=== PATIENT | female | born 1955 | race Hispanic/Latino ===

== ENCOUNTER 2017-03-26 05:28 | Inpatient (IN) | payer BC ==
--- NOTE | 2017-03-26 06:15 | ED PDOC ---
Arrival/HPI - General Chief Complaint: Abdominal Pain Time Seen by Provider: 03/26/17 06:14 Historian: Patient - History of Present Illness Narrative History of Present Illness (Text): 03/26/17 06:14 A 61 year old female, whose past medical history includes hypertension, COPD, ulcerative colitis, and potassium deficiency presents to the emergency department complaining of left lower quadrant pain that began yesterday associated with rashes on the left arm and leg and swelling to the right face. Patient states to have urinary incontinence, dyusria, vaginal discharge, fever, dehydration, nausea, loss of appetite, but denies vaginal bleeding, vomiting, hematuria, chest pain, shortness of breath, vomiting, diarrhea, back pain, neck pain, headache, dizziness, or any other complaints. PMD: Dr. Lira Time/Duration: Other (yesterday) Symptom Onset: Gradual Symptom Course: Unchanged Quality: Stabbing Activities at Onset: Light Context: Home Past Medical History - Provider Review Nursing Documentation Reviewed: Yes - Infectious Disease Hx of Infectious Diseases: None - Cardiac Hx Cardiac Disorders: Yes Hx Hypertension: Yes - Pulmonary Hx Respiratory Disorders: Yes (SMOKED 3 PPD QUIT USING CHANTIX.) Hx Chronic Obstructive Pulmonary Disease (COPD): Yes - Neurological Hx Neurological Disorder: No - HEENT Hx HEENT Disorder: No - Renal Hx Renal Disorder: No - Endocrine/Metabolic Hx Endocrine Disorders: No - Hematological/Oncological Hx Blood Transfusions: Yes Hx Blood Transfusion Reaction: No - Integumentary Hx Dermatological Disorder: No - Musculoskeletal/Rheumatological Hx Musculoskeletal Disorders: Yes (TORN ROTATOR CUF) Hx Falls: No - Gastrointestinal Hx Gastrointestinal Disorders: Yes (COLITIS 10-5-16) - Genitourinary/Gynecological Hx Genitourinary Disorders: Yes (CYST REMOVED IN BETWEEN BREAST.TUBAL LIGATION) - Psychiatric Hx Psychophysiologic Disorder: Yes (SMOKED 3 PPD.QUIT) Hx Anxiety: No Hx Bipolar Disorder: No Hx Depression: No Hx Emotional Abuse: No Hx Hallucinations: No Hx Panic Disorder: No Hx Post Traumatic Stress Disorder: No Hx Psychosis: No Hx Physical Abuse: No Hx Schizophrenia: No Hx Sexual Abuse: No Hx Substance Use: No - Anesthesia Hx Anesthesia Reactions: No Hx Malignant Hyperthermia: No - Suicidal Assessment Feels Threatened In Home Enviroment: No Family/Social History - Physician Review Nursing Documentation Reviewed: Yes Family/Social History: No Known Family HX Smoking Status: Former Smoker Hx Alcohol Use: No Hx Substance Use: No Allergies/Home Meds Allergies/Adverse Reactions: Allergies No Known Allergies Allergy (Verified 04/22/16 12:07) Home Medications: Home Meds Medication Instructions Recorded Confirmed amLODIPine [Norvasc] 5 mg PO DAILY 04/06/16 03/26/17 Review of Systems - Physician Review All systems were reviewed & negative as marked: Yes - Review of Systems Constitutional: Fevers, Other (swelling on the right side of face) Respiratory: absent: SOB Cardiovascular: absent: Chest Pain Gastrointestinal: Abdominal Pain (LLQ abdominal pain), Nausea, Appetite Changes (loss of appetite/ dehydrated), Hematochezia (have not increased since Uleractive coliltis). absent: Diarrhea, Vomiting Genitourinary Female: Dysuria, Vaginal Discharge, Other (Urinary incontinance ) . absent: Hematuria, Vaginal Bleeding Musculoskeletal: absent: Back Pain, Neck Pain Skin: Rash (left arm and left leg) Neurological: absent: Headache, Dizziness Physical Exam Vital Signs Reviewed: Yes Vital Signs Temp Pulse Resp BP Pulse Ox 03/26/17 05:32 101.3 F H 105 H 18 121/65 93 L Temperature: Febrile Blood Pressure: Normal Pulse: Tachycardic Respiratory Rate: Normal Appearance: Positive for: Well-Appearing, Non-Toxic, Comfortable Pain Distress: None Mental Status: Positive for: Alert and Oriented X 3 - Systems Exam Head: Present: Atraumatic, Normocephalic, Swelling (mild swelling on right side of the face) Pupils: Present: PERRL Extroacular Muscles: Present: EOMI Conjunctiva: Present: Normal Mouth: Present: Moist Mucous Membranes Neck: Present: Normal Range of Motion Respiratory/Chest: Present: Clear to Auscultation, Good Air Exchange. No: Respiratory Distress, Accessory Muscle Use Cardiovascular: Present: Regular Rate and Rhythm, Normal S1, S2. No: Murmurs Abdomen: Present: Tenderness (LLQ tenderness), Distention (slight distented), Normal Bowel Sounds. No: Peritoneal Signs Back: Present: Normal Inspection Upper Extremity: Present: Normal Inspection. No: Cyanosis, Edema Lower Extremity: Present: Normal Inspection. No: Edema Neurological: Present: GCS=15, CN II-XII Intact, Speech Normal Skin: Present: Warm, Dry, Rashes, Normal Color (mild maculopapular rash on left arm and left leg.) Psychiatric: Present: Alert, Oriented x 3, Normal Insight, Normal Concentration Medical Decision Making ED Course and Treatment: 03/26/17 06:14 Impression: 61 year old female presents complaining of left lower quadrant tenderness associated with rash on the left arm and leg that began yesterday. Plan: -- ABD and Pelvis IV Contrast CT -- Labs -- IV Fluids -- Blood culture -- Urine Culture -- Urinalysis -- Reassess and disposition Progress Notes: - Lab Interpretations Lab Results: 03/26/17 06:40 Lab Results 03/26/17 06:40: Sodium 139, Potassium 3.8, Chloride 101, Carbon Dioxide 26, Anion Gap 16, BUN 11, Creatinine 0.8, Est GFR ( Amer) > 60, Est GFR (Non- Af Amer) > 60, Random Glucose 159 H, Calcium 9.1, Total Bilirubin 1.6 H, AST 29 , ALT 38, Alkaline Phosphatase 92, Total Protein 7.4, Albumin 4.2, Globulin 3.2 , Albumin/Globulin Ratio 1.3, Lipase 85 I have reviewed the lab results: Yes - RAD Interpretation Radiology Orders: 03/26/17 07:04 ABD & PELVIS PO CONTRAST ONLY [CT] Stat - Medication Orders Current Medication Orders: Sodium Chloride (Sodium Chloride 0.9%) 1,000 mls @ 1,000 mls/hr IV .Q1H STA Stop: 03/26/17 07:22 Last Admin: 03/26/17 06:56 Dose: 1,000 mls/hr eMAR Start Stop Document 03/26/17 06:56 MARCIAL (Rec: 03/26/17 06:56 [id number]) Intravenous Solution Start Date 03/26/17 Start Time 06:56 End Date 03/26/17 End time 07:56 Total Infusion Time 60 Discontinued Medications Acetaminophen (Tylenol 325mg Tab) 650 mg PO STAT STA Stop: 03/26/17 06:38 Last Admin: 03/26/17 06:56 Dose: 650 mg MAR Pain/Vitals Document 03/26/17 06:56 MARCIAL (Rec: 03/26/17 06:56 [id number]) Pain Reassessment Is This A Pain ReAssessment? No Sleep Is patient sleeping during reassessment? No Presence of Pain Presence of Pain No Iohexol (Omnipaque 240 (50 Ml)) Confirm Administered Dose 50 ml .ROUTE .STK-MED ONE Stop: 03/26/17 06:43 Ondansetron HCl (Zofran Inj) 4 mg IVP STAT STA Stop: 03/26/17 06:24 Last Admin: 03/26/17 06:51 Dose: 4 mg IVP Administration Document 03/26/17 06:51 MARCIAL (Rec: 03/26/17 06:51 MARCIAL [facility] [place] [id number]) Charges for Administration # of IVP Administrations 1 - Scribe Statement The provider has reviewed the documentation as recorded by the Scribe Doris Rajan All medical record entries made by the Scribe were at my direction and personally dictated by me. I have reviewed the chart and agree that the record accurately reflects my personal performance of the history, physical exam, medical decision making, and the department course for this patient. I have also personally directed, reviewed, and agree with the discharge instructions and disposition. Disposition/Present on Arrival - Present on Arrival Any Indicators Present on Arrival: No History of DVT/PE: No History of Uncontrolled Diabetes: No Urinary Catheter: No History of Decub. Ulcer: No History Surgical Site Infection Following: None - Disposition Have Diagnosis and Disposition been Completed?: Yes Diagnosis: Colitis Disposition Time: 07:00 Condition: UNKNOWN Referrals: Yogesh Lira MD [Primary Care Provider] - Follow up with primary Forms: [facility] (Indonesian)
[2017-03-26] MEDS ORDERED: Sodium Chloride 0.9% 1,000 ML IV STA ×2 (06:23→12:14)
[2017-03-26] MEDS ORDERED: Iohexol 240 (50 ml) ONE (06:42)
[2017-03-26 07:01] LABS: ALB/GLOB RATIO 1.3 (1.1-1.8); ALKALINE PHOSPHATASE 92 U/L (38-126); ALT/SGPT 38 U/L (7-56); AST/SGOT 29 U/L (14-36); BASO # 0.01 K/mm3 (0.0-2.0); BASO % 0.1 % (0.0-3.0); BILIRUBIN,TOTAL 1.6 mg/dL (0.2-1.3); BLOOD UREA NITROGEN 11 mg/dL (7-21); CALCIUM 9.1 mg/dL (8.4-10.5); CARBON DIOXIDE 26 mmol/L (21-33); CHLORIDE 101 mmol/L (98-107); EOS % 0.1 % (1.5-5.0); GFR AFRICAN-AMERICAN > 60; GLUCOSE,RANDOM 159 mg/dL (70-110); GRAN # 14.01 (1.4-6.5); GRAN % 85.8 % (50.0-68.0); HEMATOCRIT 42.5 % (36.0-48.0); LIPASE 85 U/L (23-300); LYMPH # 1.3 (1.2-3.4); LYMPH % 7.9 % (22.0-35.0); MEAN CELL VOLUME 89.7 fl (80.0-105.0); MEAN CORPUSCULAR HEMOGLOBIN 29.5 pg (25.0-35.0); MEAN CORPUSCULAR HGB CONC 32.9 g/dl (31.0-37.0); MEAN PLATELET VOLUME 10.8 fl (7.0-11.0); MONO % 6.1 % (1.0-6.0); POTASSIUM 3.8 mmol/L (3.6-5.0); RED CELL DISTRIBUTION WIDTH 14.2 % (11.5-14.5); SODIUM 139 mmol/L (132-148); TOTAL PROTEIN 7.4 g/dL (5.8-8.3); WHITE BLOOD COUNT 16.3 10^3/ul (4.5-11.0)
--- NOTE | 2017-03-26 07:09 | ED PDOC ---
Physical Exam - Physical Exam Narrative Physical Exam (Text): Physical exam Patient appears age appropriate in no distress, speaking full sentences without difficulty - Systems Exam Head: Present: Atraumatic, Normocephalic Pupils: Present: PERRL Extroacular Muscles: Present: EOMI Conjunctiva: Present: Normal Mouth: Present: Moist Mucous Membranes Neck: Present: Normal Range of Motion. No: MIDLINE TENDERNESS, Paraspinal Tenderness Respiratory/Chest: Present: Clear to Auscultation, Good Air Exchange. No: Respiratory Distress, Accessory Muscle Use, Tachypneic Cardiovascular: Present: Regular Rate and Rhythm, Normal S1, S2, Peripheal Pulses Present. No: Murmurs Abdomen: Present: LLQ tenderness to palpation. No: Distention, Peritoneal Signs , Rebound, Guarding Back: Present: Normal Inspection. No: Midline Tenderness, Paraspinal Tenderness Upper Extremity: Present: Normal Inspection. No: Cyanosis, Edema Lower Extremity: Present: Normal Inspection. No: Edema Neurological: Present: GCS=15, Speech Normal, cranial nerves II through XII fully intact with no cerebellar abnormality, neurosensory fully intact. No focal neurological deficits. Skin: Present: Warm, Dry, Normal Color. No: Rashes Lymphatic: Present: OX3, NI, NC Psychiatric: Present: Alert, Oriented x 3, Normal Insight, Normal Concentration Vital Signs Reviewed: Yes Vital Signs Temp Pulse Resp BP Pulse Ox 03/26/17 10:54 98.4 F 80 16 103/58 L 98 03/26/17 08:43 89 16 116/60 97 03/26/17 05:32 101.3 F H 105 H 18 121/65 93 L Temperature: Febrile Blood Pressure: Normal Pulse: Tachycardic Respiratory Rate: Normal Appearance: Positive for: Well-Appearing, Non-Toxic, Comfortable Pain Distress: None Mental Status: Positive for: Alert and Oriented X 3 Medical Decision Making ED Course and Treatment: 03/26/17 07:07: Pt sign out from overnight. Patient with a history of ulcerative colitis presents with abdominal pain and fever. Pending labs, reevaluation, and disposition. 03/26/17 07:31: On exam, LLQ Tenderness to palpation. 03/26/17 11:11 CT IMPRESSION: Acute sigmoid diverticulitis with microperforation. No abscess or drainable fluid collection. Reactive mesenteric lymphadenopathy. Mild hepatomegaly and hepatic steatosis. abx already ordered pt no longer febrile will admit to Dr. Vallejo's service pt aware of and agrees with plan 03/26/17 12:[address] Lee, accepted admission to his service Margie Neumann and Dima on consult afebrile, hemodynamically stable, states pain is better - Lab Interpretations Lab Results: 03/26/17 06:40 03/26/17 06:40 Lab Results 03/26/17 07:00: Urine Color Yellow, Urine Appearance Sl cloudy, Urine pH 6.0, Ur Specific [place] 1.025, Urine Protein 100 H, Urine Glucose (UA) Negative, Urine Ketones Trace H, Urine Blood Negative, Urine Nitrate Negative, Urine Bilirubin Small H, Urine Urobilinogen 0.2, Ur Leukocyte Esterase Trace H, Urine RBC Negative, Urine WBC 5 - 10, Ur Epithelial Cells Many, Urine Bacteria Small 03/26/17 06:40: Sodium 139, Potassium 3.8, Chloride 101, Carbon Dioxide 26, Anion Gap 16, BUN 11, Creatinine 0.8, Est GFR ( Amer) > 60, Est GFR (Non- Af Amer) > 60, Random Glucose 159 H, Calcium 9.1, Total Bilirubin 1.6 H, AST 29 , ALT 38, Alkaline Phosphatase 92, Total Protein 7.4, Albumin 4.2, Globulin 3.2 , Albumin/Globulin Ratio 1.3, Lipase 85 03/26/17 06:40: WBC 16.3 H D, RBC 4.74, Hgb 14.0, Hct 42.5, MCV 89.7, MCH 29.5, MCHC 32.9, RDW 14.2, Plt Count 224, MPV 10.8, Gran % 85.8 H, Lymph % (Auto) 7.9 L, [place] % (Auto) 6.1 H, Eos % (Auto) 0.1 L, Baso % (Auto) 0.1, Gran # 14.01 H, Lymph # 1.3, [place] # 1.0 H, Eos # 0.0, Baso # 0.01 - RAD Interpretation Radiology Orders: 03/26/17 07:04 ABD & PELVIS PO CONTRAST ONLY [CT] Stat - Medication Orders Current Medication Orders: Discontinued Medications Acetaminophen (Tylenol 325mg Tab) 650 mg PO STAT STA Stop: 03/26/17 06:38 Last Admin: 03/26/17 06:56 Dose: 650 mg MAR Pain/Vitals Document 03/26/17 06:56 JOL (Rec: 03/26/17 06:56 [id number]) Pain Reassessment Is This A Pain ReAssessment? No Sleep Is patient sleeping during reassessment? No Presence of Pain Presence of Pain No Diphenhydramine HCl (Benadryl) 50 mg IVP STAT STA Stop: 03/26/17 08:27 Last Admin: 03/26/17 08:37 Dose: 50 mg IVP Administration Document 03/26/17 08:37 [facility] (Rec: 03/26/17 08:37 [facility] [id number]) Charges for Administration # of IVP Administrations 1 Sodium Chloride (Sodium Chloride 0.9%) 1,000 mls @ 1,000 mls/hr IV .Q1H STA Stop: 03/26/17 07:22 Last Admin: 03/26/17 06:56 Dose: 1,000 mls/hr eMAR Start Stop Document 03/26/17 06:56 JOL (Rec: 03/26/17 06:56 [id number]) Intravenous Solution Start Date 03/26/17 Start Time 06:56 End Date 03/26/17 End time 07:56 Total Infusion Time 60 Piperacillin Sod/Tazobactam Sod (Zosyn 4.5 Gm In Ns 100ml) 4.5 gm in 100 mls @ 200 mls/hr IVPB STAT STA PRN Reason: Protocol Stop: 03/26/17 08:00 Last Admin: 03/26/17 07:45 Dose: 200 mls/hr eMAR Start Stop Document 03/26/17 07:45 [facility] (Rec: 03/26/17 07:45 [facility] [id number]) Intravenous Solution Start Date 03/26/17 Start Time 07:45 End Date 03/26/17 End time 08:15 Total Infusion Time 30 Iohexol (Omnipaque 240 (50 Ml)) Confirm Administered Dose 50 ml .ROUTE .STK-MED ONE Stop: 03/26/17 06:43 Ketorolac Tromethamine (Toradol) 15 mg IVP STAT STA Stop: 03/26/17 07:32 Last Admin: 03/26/17 07:44 Dose: 15 mg MAR Pain Assessment Document 03/26/17 07:44 [facility] (Rec: 03/26/17 07:45 [facility] [id number]) Pain Reassessment Is this a pain reassessment? Yes Sleep Is patient sleeping during reassessment? No Presence of Pain Presence of Pain Yes Pain Scale Used Pain Scale Used Numeric Description Intensity of Pain at present 4 IVP Administration Document 03/26/17 07:44 [facility] (Rec: 03/26/17 07:45 [facility] [id number]) Charges for Administration # of IVP Administrations 1 Ondansetron HCl (Zofran Inj) 4 mg IVP STAT STA Stop: 03/26/17 06:24 Last Admin: 03/26/17 06:51 Dose: 4 mg IVP Administration Document 03/26/17 06:51 JOL (Rec: 03/26/17 06:51 [facility] [id number]) Charges for Administration # of IVP Administrations 1 - Scribe Statement The provider has reviewed the documentation as recorded by the Veronaibe Evelina Auguste Provider Scribe Attestation: All medical record entries made by the Scribe were at my direction and personally dictated by me. I have reviewed the chart and agree that the record accurately reflects my personal performance of the history, physical exam, medical decision making, and the department course for this patient. I have also personally directed, reviewed, and agree with the discharge instructions and disposition. Disposition/Present on Arrival - Present on Arrival Any Indicators Present on Arrival: No History of DVT/PE: No History of Uncontrolled Diabetes: No Urinary Catheter: No History of Decub. Ulcer: No History Surgical Site Infection Following: None - Disposition Have Diagnosis and Disposition been Completed?: Yes Diagnosis: Diverticulitis Disposition: HOSPITALIZED Disposition Time: 12:14 Patient Plan: Admission Patient Problems: Current Active Problems Problem Status Onset Colitis Acute Condition: FAIR Referrals: Yogesh Lira MD [Primary Care Provider] - Follow up with primary Forms: [employer] (Maltese)
[2017-03-26 07:23] LABS: URINE BILIRUBIN SMALL (NEGATIVE); URINE BLOOD NEGATIVE (NEGATIVE); URINE GLUCOSE (UA) NEGATIVE (NEGATIVE); URINE KETONE TRACE mg/dL (NEGATIVE); URINE LEUKOCYTE ESTERASE TRACE Leu/uL (NEGATIVE); URINE PROTEIN 100 mg/dL (<30 mg/dL); URINE UROBILINOGEN 0.2 E.U./dL (<1 E.U./dL)
[2017-03-26] MEDS ORDERED: Piperacill/Tazo 4.5gm in NS 4.5 GM/100 ML BAG IVPB STA (07:31)
[2017-03-26 07:35] LABS: URINE APPEARANCE SL CLOUDY (CLEAR); URINE COLOR YELLOW (YELLOW)
[2017-03-26 08:16] LABS: URINE BACTERIA SMALL (NEG); URINE EPITHELIAL CELLS MANY /hpf (0-5); URINE RBC NEGATIVE /hpf (0-2)
[2017-03-26] MEDS ORDERED: DiphenhydrAMINE 50 mg/ml Inj IVP STA (08:26)
--- NOTE | 2017-03-26 10:56 | CT ---
PROCEDURE: CT Abdomen and Pelvis with contrast HISTORY: diarrhea COMPARISON: 04/22/2016 TECHNIQUE: CT scan of the abdomen and pelvis was performed without administration of intravenous contrast. Oral contrast was administered. Coronal and sagittal reformatted images were obtained. Radiation dose: Total exam DLP = 798.68 mGy-cm. This CT exam was performed using one or more of the following dose reduction techniques: Automated exposure control, adjustment of the mA and/or kV according to patient size, and/or use of iterative reconstruction technique. FINDINGS: LOWER THORAX: The lung bases are clear. LIVER: There is mild hepatomegaly and fatty infiltration in the liver with focal fatty sparing in the right hepatic lobe. No gross lesion or ductal dilatation. GALLBLADDER AND BILE DUCTS: There is a solitary large calcified gallstone in the neck of the gallbladder. PANCREAS: The pancreas is normal in size without calcifications or ductal dilatation. SPLEEN: The spleen is normal in size. ADRENALS: Both adrenal glands are normal in size. There is an 11 mm adenoma in the right adrenal gland. KIDNEYS AND URETERS: Both kidneys are normal in size without hydronephrosis. VASCULATURE: There are atherosclerotic aortoiliac calcifications. No aortic aneurysm. BOWEL: The small bowel loops are normal in caliber. There is sigmoid diverticulosis. There is apparent moderate mural thickening in the sigmoid colon with significant inflammatory changes in the surrounding pericolonic fat. There is a tiny focus of air in the posterior to the sigmoid colon most compatible with micro perforation. No fluid collection or abscess. APPENDIX: Normal appendix. PERITONEUM: No free fluid in the pelvis. . LYMPH NODES: There are enlarged mesenteric lymph nodes in the left abdomen and left lower quadrant, likely reactive. BLADDER: Decompressed. REPRODUCTIVE: Unremarkable. BONES: No acute fracture. OTHER FINDINGS: None. IMPRESSION: Acute sigmoid diverticulitis with microperforation. No abscess or drainable fluid collection. Reactive mesenteric lymphadenopathy. Mild hepatomegaly and hepatic steatosis.
[2017-03-26 13:21] VITALS: BMI 33.5
--- NOTE | 2017-03-26 15:01 | CP.PCM.CON ---
History of Present Illness - History of Present Illness History of Present Illness: General Surgery Consult Note for Dr. Ch Reason for Consult: Acute Diverticulitis 61 F with PMH that includes hypertension, COPD, ulcerative colitis, and Hidroadenitis supporativa presents to the [facility] – [place], [place] with complaint of LLQ pain that began yesterday. She also has associated rash on bilateral upper/lower extremities and periumbilical region. Patient states she has had similar pain in past with her UC. She initially thought she was having a UC flare. Pain gotten progressively worse so she decided to be seen this morning. She rates pain as severe. She describes pain as constant and stabbing located in LLQ quadrant without radiation. Denies any specific alleviating or exacerbating factors. Patient admits to fever/chills, palpitations, nausea, diarrhea, urinary incontinence and dyusria. Patient denies chest pain, shortness of breath , vomiting, hematuria, hematochezia, hematemesis. PMD: Dr. Lira PMH: hypertension, COPD, ulcerative colitis, Hidroadenitis supporativa, pre- diabetic, potassium deficiency Meds: As per EMR Allergy: NKDA PSH: Rotator cuff repair, tubal ligatation, cyst removal Hosp: UC (2016), Pneumonia (2006) FH: unknown Social: former smoker - 3 packs/day for 45 years, denies EtOH and illicit drug use Review of Systems - Constitutional Constitutional: Anorexia, Chills, Fever - EENT Eyes: absent: Change in Vision, Loss of Vision Nose/Mouth/Throat: absent: Neck Pain - Breasts Breasts: absent: Mass, Pain, Swelling - Cardiovascular Cardiovascular: Palpitations. absent: Chest Pain, Chest Pain at Rest, Diaphoresis, Dyspnea, Edema, Syncope - Respiratory Respiratory: absent: Cough, Dyspnea, Hemoptysis, Dyspnea on Exertion, Wheezing - Gastrointestinal Gastrointestinal: Abdominal Pain, Diarrhea, Nausea. absent: Constipation, Dyspepsia, Dysphagia, Hematemesis, Hematochezia, Vomiting - Genitourinary Genitourinary: Dysuria, Urinary Incontinence - Musculoskeletal Musculoskeletal: absent: Back Pain, Numbness, Tingling - Integumentary Integumentary: Rash - Neurological Neurological: absent: Dizziness, Numbness, Syncope, Tingling, Vertigo, Weakness - Psychiatric Psychiatric: absent: Anxiety, Depression, Homicidal Ideation, Suicidal Ideation - Endocrine Endocrine: Palpitations. absent: Fatigue, Polydipsia, Polyphagia, Polyuria - Hematologic/Lymphatic Hematologic: absent: Easy Bleeding, Easy Bruising, Lymphadenopathy Past Patient History - Infectious Disease Hx of Infectious Diseases: None - Past Social History Smoking Status: Former Smoker - CARDIAC Hx Cardiac Disorders: Yes Hx Hypertension: Yes - PULMONARY Hx Respiratory Disorders: Yes (SMOKED 3 PPD QUIT USING CHANTIX.) Hx Chronic Obstructive Pulmonary Disease (COPD): Yes - NEUROLOGICAL Hx Neurological Disorder: No - HEENT Hx HEENT Problems: No - RENAL Hx Chronic Kidney Disease: No - ENDOCRINE/METABOLIC Hx Endocrine Disorders: No - HEMATOLOGICAL/ONCOLOGICAL Hx Blood Disorders: No - INTEGUMENTARY Hx Dermatological Problems: No - MUSCULOSKELETAL/RHEUMATOLOGICAL Hx Falls: No - GASTROINTESTINAL Hx Gastrointestinal Disorders: Yes (COLITIS 04-06-16) - GENITOURINARY/GYNECOLOGICAL Hx Genitourinary Disorders: Yes (CYST REMOVED IN BETWEEN BREAST.TUBAL LIGATION) - PSYCHIATRIC Hx Psychophysiologic Disorder: Yes (SMOKED 3 PPD.QUIT) Hx Anxiety: No Hx Bipolar Disorder: No Hx Depression: No Hx Emotional Abuse: No Hx Hallucinations: No Hx Panic Symptoms: No Hx Post Traumatic Stress Disorder: No Hx Psychosis: No Hx Physical Abuse: No Hx Schizophrenia: No Hx Sexual Abuse: No - SURGICAL HISTORY Hx Surgeries: Yes (TORN ROTATOR CUFF,TUBAL LIGATION,CYST REMOVED IN BETWEEN BREAST.) - ANESTHESIA Hx Anesthesia Reactions: No Hx Malignant Hyperthermia: No Meds Allergies/Adverse Reactions: Allergies Allergy/AdvReac Type Severity Reaction Status Date / Time No Known Allergies Allergy Verified 04/22/16 12:07 - Medications Medications: Current Medications Acetaminophen (Tylenol 325mg Tab) 650 mg PO Q6H PRN PRN Reason: Fever >100.5 F Sodium Chloride (Sodium Chloride 0.9%) 1,000 mls @ 100 mls/hr IV .Q10H STA Stop: 03/26/17 22:13 Last Admin: 03/26/17 12:27 Dose: 100 mls/hr Physical Exam - Constitutional Appears: Well, Non-toxic, No Acute Distress - Head Exam Head Exam: NORMOCEPHALIC - Eye Exam Eye Exam: Normal appearance - ENT Exam ENT Exam: Mucous Membranes Moist - Neck Exam Neck exam: Positive for: Full Rom - Respiratory Exam Respiratory Exam: NORMAL BREATHING PATTERN - Cardiovascular Exam Cardiovascular Exam: REGULAR RHYTHM - GI/Abdominal Exam GI & Abdominal Exam: Soft, Tenderness (LLQ minimal). absent: Distended, Firm, Guarding, Hernia, Mass, Rebound, Rigid - Extremities Exam Extremities exam: Positive for: normal capillary refill, pedal pulses present. Negative for: calf tenderness - Back Exam Back exam: absent: CVA tenderness (L), CVA tenderness (R) - Neurological Exam Neurological exam: Alert, CN II-XII Intact, Oriented x3 - Psychiatric Exam Psychiatric exam: Normal Affect, Normal Mood - Skin Skin Exam: Dry, Intact, Rash (perumbilical region bilateral arm/legs), Warm Results - Vital Signs Recent Vital Signs: Last Vital Signs Temp 98.4 F 03/26/17 10:54 Pulse 75 03/26/17 13:17 Resp 18 03/26/17 13:17 BP 110/60 03/26/17 13:17 Pulse Ox 97 03/26/17 12:55 - Labs Result Diagrams: 03/26/17 06:40 03/26/17 06:40 Assessment & Plan - Assessment and Plan (Free Text) Plan: 61 F with acute diverticulitis -CT abd/pelvis suggestive of acute diverticulitis -NPO -IV Abx -IV fluids -Anti-emetics/Analgescis PRN -No surgical intervention at this time -OBI Ford PGY1
[2017-03-26] MEDS ORDERED: Oxycodone/Acetaminophen 5/325 mg Tab PO PRN (20:26)
[2017-03-26] MEDS ORDERED: Morphine 2 mg/ml ISec IVP PRN (20:26)
[2017-03-26] MEDS ORDERED: cefTRIAXone 1 gm 1 GM/100 ML BAG IVPB SCH (21:30)
[2017-03-26] MEDS: metroNIDAZOLE IV 500 mg/100 ml 500 MG/100 ML BAG IVPB SCH (21:41)
[2017-03-26] MEDS: Piperacillin/Tazobact 3.375 gm 100 ML IVPB SCH (23:25)
[2017-03-27] MEDS ORDERED: Sodium Chloride 0.9% 1,000 ML IV SCH ×2 (03:30→21:27)
[2017-03-27] MEDS: Piperacillin/Tazobact 3.375 gm 100 ML IVPB SCH ×3 (05:59→17:56)
[2017-03-27] MEDS: metroNIDAZOLE IV 500 mg/100 ml 500 MG/100 ML BAG IVPB SCH ×2 (05:59→14:16)
[2017-03-27 06:11] LABS: BASO # 0.01 K/mm3 (0.0-2.0); BASO % 0.1 % (0.0-3.0); EOS # 0.1 (0.0-0.7); GRAN # 8.97 (1.4-6.5); GRAN % 82.6 % (50.0-68.0); HEMATOCRIT 37.6 % (36.0-48.0); LYMPH # 1.2 (1.2-3.4); LYMPH % 11.1 % (22.0-35.0); MEAN CELL VOLUME 90.8 fl (80.0-105.0); MEAN CORPUSCULAR HEMOGLOBIN 29.5 pg (25.0-35.0); MEAN CORPUSCULAR HGB CONC 32.4 g/dl (31.0-37.0); MEAN PLATELET VOLUME 10.2 fl (7.0-11.0); MONO # 0.6 (0.1-0.6); MONO % 5.2 % (1.0-6.0); RED CELL DISTRIBUTION WIDTH 14.7 % (11.5-14.5); WHITE BLOOD COUNT 10.9 10^3/ul (4.5-11.0)
[2017-03-27 06:45] LABS: ALB/GLOB RATIO 1.2 (1.1-1.8); ALKALINE PHOSPHATASE 81 U/L (38-126); ALT/SGPT 33 U/L (7-56); AST/SGOT 23 U/L (14-36); BILIRUBIN,TOTAL 1.4 mg/dL (0.2-1.3); BLOOD UREA NITROGEN 7 mg/dL (7-21); CALCIUM 8.4 mg/dL (8.4-10.5); CARBON DIOXIDE 29 mmol/L (21-33); CHLORIDE 106 mmol/L (98-107); GFR AFRICAN-AMERICAN > 60; GLUCOSE,RANDOM 104 mg/dL (70-110); POTASSIUM 3.6 mmol/L (3.6-5.0); SODIUM 144 mmol/L (132-148); TOTAL PROTEIN 6.4 g/dL (5.8-8.3)
--- NOTE | 2017-03-27 09:49 | CON ---
HISTORY OF PRESENT ILLNESS: This patient was seen and evaluated earlier. This is a 61-year-old patient with a past medical history of ulcerative colitis, COPD, hidradenitis suppurativa, was recently started on Humira about 2 weeks ago; the patient did receive 160 mg of Humira. Noticed on Monday some lower abdominal discomfort. The patient had worsening of the symptoms today. She also noticed yesterday some rash on the left arm, leg and also abdominal wall area. No vomiting, no bleeding per rectum. She says in fact there is no diarrhea now. Since the Humira injections, her bowels are becoming more formed. Even before that, bowel started to improve. The patient had a last colonoscopy done in December 2016 and the patient had pseudopolyps and pancolitis. The patient was initially treated with prednisone tapering dose and mesalamine. The patient was started on 6-MP, but the patient had falling of hair, so she discontinued taking 6-MP. The patient was in the past on Humira prior to this for hidradenitis, but this was discontinued due to some side effect. PAST MEDICAL HISTORY: Significant for hypertension, COPD, hidradenitis, prediabetes. SOCIAL HISTORY: Ex-smoker, about 3 cigarettes per day. Denies alcohol use. FAMILY HISTORY: Noncontributory. ALLERGIES: NO KNOWN ALLERGY. SURGICAL HISTORY: Significant for colonoscopy, history of rotator cuff repair, tubal ligation. REVIEW OF SYSTEMS: Positive as above, other systems reviewed. PHYSICAL EXAMINATION: VITAL SIGNS: Temperature 100, blood pressure is 131/52, respirations 20 and O2 saturation 92%. HEENT: Atraumatic. Anicteric. NECK: Supple. HEART: S1 and S2 heard. LUNGS: Bilateral air entry present. ABDOMEN: Soft. There was present tenderness present in the left lower quadrant area. There is no rebound or guarding. EXTREMITIES: No cyanosis. No clubbing. NEUROLOGICALLY: Alert and oriented. Moves all the extremities. LABORATORY DATA: White cell count elevated to 16.3, hemoglobin 14, hematocrit 42.5, platelet 224. Chemistry is essentially unremarkable. Total bilirubin of 1.6. The CT scan of the abdomen and pelvis done which was reviewed, found to have diverticulosis and also the segment of the colon appeared to be more thickened with the inflammatory changes, questionable tiny focus of the air seen in the sigmoid colon, questionable microperforation. IMPRESSION: 1. This 61-year-old patient with ulcerative colitis presented due to acute onset of abdominal pain in the left lower quadrant area. CAT scan showed some inflammatory changes with questionable microperforation. The patient had silvestre cultures done and given only dose of Zosyn in the ER. The patient is on IV fluid. We will start the patient on ceftriaxone 1 g and also with the Flagyl 500 mg q. 8 hourly. We will start the patient on clear liquid diet. 2. History of ulcerative colitis. The patient was on the past tapering dose of steroid. The patient was on only mesalamine. The patient has been started on Humira by the water resources technical officer. The patient's symptoms of colitis significantly improved. 3. History of hidradenitis suppurativa. The patient is on Humira, received 160 mg dose 2 weeks ago. She is due to have 80 mg dose in another 2 weeks' time from the time of the first dose. 4. Other comorbidities include chronic obstructive pulmonary disease, hypertension, prediabetes. RECOMMENDATION: 1. Start the patient on clear liquid diet. 2. Start the patient on antibiotics. 3. Stool studies. 4. We will discuss with dermatology regarding the skin rash what she has experienced before. The patient did have some reaction to the Humira in the past when she was started for the similar indication. At the moment, the plan is to hold off Humira and restart will be based on the clinical course and further discussion with the water resources technical officer. Thank you very much for allowing us to participate in the care of the patient. Wesley Neumann MD
--- NOTE | 2017-03-27 12:07 | CP.PCM.CON ---
<Natalio Wolfe - Last Filed: 03/27/17 12:15> History of Present Illness - History of Present Illness History of Present Illness: GI: Dr. Neumann CC: Abd pain HPI: 61F w. pmh of UC, hypertension, COPD, and Hidroadenitis supporativa [place] [facility] [place]. abd pain x 3 days. Pain is in the LLQ. Initially pt thought pain was 2/2 to UC flare. However it progressed in severity and eventually became constant and was described as sharp stabbing. Pt denies any alleviating or aggravating factors. Pt states that initially she had a decreased appetite, + nausea, no vomiting, and +diarrhea. Pt also states that she developed a rash on the B/L UE and LE. In ED CT was done which had findings consistent w. diverticulitis. When pt was seen at bedside this AM she states that her pain has significantly improved and diarrhea has resolved. 12pt ROS negative unless specified PMH: hypertension, COPD, ulcerative colitis, Hidroadenitis supporativa, pre- diabetic, potassium deficiency PSH: Rotator cuff repair, tubal ligatation, cyst removal Meds: MAR reviewed NKDA Social: former smoker - 3 packs/day for 45 years, denies EtOH and illicit drug use FHx: unknown Past Patient History - Infectious Disease Hx of Infectious Diseases: None - Past Social History Smoking Status: Former Smoker - CARDIAC Hx Cardiac Disorders: Yes Hx Hypertension: Yes - PULMONARY Hx Respiratory Disorders: Yes (SMOKED 3 PPD QUIT USING CHANTIX.) Hx Chronic Obstructive Pulmonary Disease (COPD): Yes - NEUROLOGICAL Hx Neurological Disorder: No - HEENT Hx HEENT Problems: No - RENAL Hx Chronic Kidney Disease: No - ENDOCRINE/METABOLIC Hx Endocrine Disorders: No - HEMATOLOGICAL/ONCOLOGICAL Hx Blood Disorders: No - INTEGUMENTARY Hx Dermatological Problems: No - MUSCULOSKELETAL/RHEUMATOLOGICAL Hx Falls: No - GASTROINTESTINAL Hx Gastrointestinal Disorders: Yes (COLITIS 10-5-16) - GENITOURINARY/GYNECOLOGICAL Hx Genitourinary Disorders: Yes (CYST REMOVED IN BETWEEN BREAST.TUBAL LIGATION) - PSYCHIATRIC Hx Psychophysiologic Disorder: Yes (SMOKED 3 PPD.QUIT) Hx Anxiety: No Hx Bipolar Disorder: No Hx Depression: No Hx Emotional Abuse: No Hx Hallucinations: No Hx Panic Symptoms: No Hx Post Traumatic Stress Disorder: No Hx Psychosis: No Hx Physical Abuse: No Hx Schizophrenia: No Hx Sexual Abuse: No - SURGICAL HISTORY Hx Surgeries: Yes (TORN ROTATOR CUFF,TUBAL LIGATION,CYST REMOVED IN BETWEEN BREAST.) - ANESTHESIA Hx Anesthesia Reactions: No Hx Malignant Hyperthermia: No Meds Allergies/Adverse Reactions: Allergies Allergy/AdvReac Type Severity Reaction Status Date / Time No Known Allergies Allergy Verified 04/22/16 12:07 - Medications Medications: Current Medications Acetaminophen (Tylenol 325mg Tab) 650 mg PO Q6H PRN PRN Reason: Fever >100.5 F Last Admin: 03/26/17 17:36 Dose: 650 mg Diphenhydramine HCl (Benadryl) 50 mg PO Q6 PRN PRN Reason: Rash Last Admin: 03/26/17 20:49 Dose: 50 mg Metronidazole (Flagyl) 500 mg in 100 mls @ 100 mls/hr IVPB Q8 ALEK PRN Reason: Protocol Last Admin: 03/27/17 05:59 Dose: 100 mls/hr Piperacillin Sod/Tazobactam Sod (Zosyn 3.375 In Ns 100ml) 100 mls @ 200 mls/hr IVPB Q6 ALEK PRN Reason: Protocol Stop: 04/05/17 00:01 Last Admin: 03/27/17 05:59 Dose: 200 mls/hr Sodium Chloride (Sodium Chloride 0.9%) 1,000 mls @ 125 mls/hr IV .Q8H ALEK Last Admin: 03/27/17 05:59 Dose: 125 mls/hr Morphine Sulfate (Morphine) 2 mg IVP Q4H PRN PRN Reason: Pain, severe (8-10) Ondansetron HCl (Zofran Inj) 4 mg IVP Q6H PRN PRN Reason: Nausea/Vomiting Oxycodone/Acetaminophen (Percocet 5/325 Mg Tab) 1 tab PO Q4H PRN PRN Reason: Pain, moderate (4-7) Stop: 03/29/17 20:27 Physical Exam - Constitutional Appears: Non-toxic, No Acute Distress - Head Exam Head Exam: ATRAUMATIC, NORMOCEPHALIC - Eye Exam Eye Exam: EOMI. absent: Scleral icterus - ENT Exam ENT Exam: Mucous Membranes Moist, Normal External Ear Exam - Neck Exam Neck exam: Positive for: Full Rom - Respiratory Exam Respiratory Exam: NORMAL BREATHING PATTERN. absent: Accessory Muscle Use, Respiratory Distress - GI/Abdominal Exam GI & Abdominal Exam: Soft, Tenderness (LLQ). absent: Distended, Firm, Guarding , Rebound, Rigid - Extremities Exam Extremities exam: Negative for: calf tenderness, pedal edema - Back Exam Back exam: absent: CVA tenderness (L), CVA tenderness (R) - Neurological Exam Neurological exam: Alert, Oriented x3 - Psychiatric Exam Psychiatric exam: Normal Affect, Normal Mood - Skin Skin Exam: Dry, Warm Results - Vital Signs Recent Vital Signs: Last Vital Signs Temp 99.5 F 03/27/17 08:17 Pulse 92 H 03/27/17 08:17 Resp 20 03/27/17 08:17 BP 160/58 H 03/27/17 08:17 Pulse Ox 94 L 03/27/17 08:17 - Labs Result Diagrams: 03/27/17 05:40 03/27/17 05:40 Labs: Laboratory Results - last 24 hr 03/27/17 03/27/17 05:40 05:40 WBC 10.9 D RBC 4.14 Hgb 12.2 Hct 37.6 MCV 90.8 MCH 29.5 MCHC 32.4 RDW 14.7 H Plt Count 193 MPV 10.2 Gran % 82.6 H Lymph % (Auto) 11.1 L Crawford % (Auto) 5.2 Eos % (Auto) 1.0 L Baso % (Auto) 0.1 Gran # 8.97 H Lymph # 1.2 Crawford # 0.6 Eos # 0.1 Baso # 0.01 Sodium 144 Potassium 3.6 Chloride 106 Carbon Dioxide 29 Anion Gap 13 BUN 7 Creatinine 0.7 Est GFR ( Amer) > 60 Est GFR (Non-Af Amer) > 60 Random Glucose 104 Calcium 8.4 Total Bilirubin 1.4 H AST 23 ALT 33 Alkaline Phosphatase 81 Total Protein 6.4 Albumin 3.5 Globulin 2.9 Albumin/Globulin Ratio 1.2 - Imaging and Cardiology CT scan - abdomen Status: Image reviewed by me, Report reviewed by me Assessment & Plan - Assessment and Plan (Free Text) Assessment: 61F w. sigmoid diverticulitis and UC -Serial abd exams -clear liquid diet -abx -pain management -hold immunologic agents for UC until acute phase of diverticulitis resolves -will need outpt colonoscopy -d/w attending Zemaitis PGY3 <Wesley Neumann V - Last Filed: 03/27/17 23:11> Meds - Medications Medications: Current Medications Acetaminophen (Tylenol 325mg Tab) 650 mg PO Q6H PRN PRN Reason: Fever >100.5 F Last Admin: 03/27/17 22:12 Dose: 650 mg Diphenhydramine HCl (Benadryl) 50 mg PO Q6 PRN PRN Reason: Rash Last Admin: 03/27/17 22:11 Dose: 50 mg Piperacillin Sod/Tazobactam Sod (Zosyn 3.375 In Ns 100ml) 100 mls @ 200 mls/hr IVPB Q6 ALEK PRN Reason: Protocol Stop: 04/05/17 00:01 Last Admin: 03/27/17 17:56 Dose: 200 mls/hr Sodium Chloride (Sodium Chloride 0.9%) 1,000 mls @ 75 mls/hr IV .[id number] ALEK Morphine Sulfate (Morphine) 2 mg IVP Q4H PRN PRN Reason: Pain, severe (8-10) Ondansetron HCl (Zofran Inj) 4 mg IVP Q6H PRN PRN Reason: Nausea/Vomiting Oxycodone/Acetaminophen (Percocet 5/325 Mg Tab) 1 tab PO Q4H PRN PRN Reason: Pain, moderate (4-7) Stop: 03/29/17 20:27 Results - Vital Signs Recent Vital Signs: Last Vital Signs Temp 98.5 F 03/27/17 16:00 Pulse 78 03/27/17 16:00 Resp 20 03/27/17 16:00 BP 156/63 H 03/27/17 16:00 Pulse Ox 95 03/27/17 16:00 - Labs Result Diagrams: 03/27/17 05:40 03/27/17 05:40 Labs: Laboratory Results - last 24 hr 03/27/17 03/27/17 05:40 05:40 WBC 10.9 D RBC 4.14 Hgb 12.2 Hct 37.6 MCV 90.8 MCH 29.5 MCHC 32.4 RDW 14.7 H Plt Count 193 MPV 10.2 Gran % 82.6 H Lymph % (Auto) 11.1 L Crawford % (Auto) 5.2 Eos % (Auto) 1.0 L Baso % (Auto) 0.1 Gran # 8.97 H Lymph # 1.2 Crawford # 0.6 Eos # 0.1 Baso # 0.01 Sodium 144 Potassium 3.6 Chloride 106 Carbon Dioxide 29 Anion Gap 13 BUN 7 Creatinine 0.7 Est GFR ( Amer) > 60 Est GFR (Non-Af Amer) > 60 Random Glucose 104 Calcium 8.4 Total Bilirubin 1.4 H AST 23 ALT 33 Alkaline Phosphatase 81 Total Protein 6.4 Albumin 3.5 Globulin 2.9 Albumin/Globulin Ratio 1.2 Attending/Attestation - Attestation I have personally seen and examined this patient.: Yes I have fully participated in the care of the patient.: Yes I have reviewed all pertinent clinical information: Yes Notes (Text): This is an addendum to GI progress report dictated by Resident.The patient was seen and examined earlier. Medical records, lab studies, imagings were reviewed. Last 24 hours events reviewed. Agreed with the above treatment plan as outlined in Resident's notes the with the addition of the following Feels better On examination abdomen soft minimal tenderness in the left lower quadrant area Continue the antibiotics explain we'll hold off the second dose of Humira Would consider repeat CT and ascertain significant improvement of diverticulitis prior to restarting the Humira Will discuss with the patient's fisher troll line On liquid diet was slowly and will advance the diet based on the clinical course 03/27/17 23:09
--- NOTE | 2017-03-27 12:11 | CP.PCM.HP ---
<Dorota Gloria - Last Filed: 03/27/17 12:46> History of Present Illness - History of Present Illness History of Present Illness: PGY-2 H&P for Dr. Vallejo 61 F with PMH that includes hypertension, COPD, ulcerative colitis, and Hidroadenitis supporativa presents with complaint of LLQ pain that began Christopher. Patient states that pain worsened yesterday becoming more constant prompting her to come to the ED. Patient states she initially believed the pain was having a UC flare or due to gas, she has had similar pain previously. Denies any specific alleviating or exacerbating factors. Patient reports nausea without vomiting, and fevers. She denies fever/chills, d/c,chest pain, shortness of breath, vomiting, hematuria, hematochezia, hematemesis. CT abd/pel showed acute sigmoid diverticulitis with mircoperforation, no abscess, with reactive mesenteric lymphadenopathy. This morning pain has improved, patient states she is tolerating clear liquid diet. PMH: hypertension, COPD, ulcerative colitis, Hidroadenitis supporativa, pre- diabetic, potassium deficiency Allergy: NKDA PSH: Rotator cuff repair, tubal ligation, cyst removal FH: mother heart disease, NH, pacemaker, HTN, father DM Social hx: former smoker, 3 packs/day for 45 years, occasional EtOH use and illicit drug use Present on Admission - Present on Admission Any Indicators Present on Admission: No Review of Systems - Constitutional Constitutional: Fever. absent: Chills, Headache, Weakness - EENT Eyes: absent: Blurred Vision, Dry Eye Nose/Mouth/Throat: absent: Nasal Congestion, Nasal Discharge, Sore Throat - Cardiovascular Cardiovascular: absent: Chest Pain, Dyspnea, Leg Edema, Palpitations - Gastrointestinal Gastrointestinal: Abdominal Pain. absent: Constipation, Diarrhea, Nausea, Vomiting - Genitourinary Genitourinary: absent: Difficulty Urinating, Dysuria, Hematuria - Musculoskeletal Musculoskeletal: absent: Back Pain, Muscle Weakness, Myalgias, Numbness, Stiffness - Integumentary Integumentary: Rash. absent: Pruritus, Skin Ulcer, Sores, Swelling, Wounds - Neurological Neurological: absent: Dizziness, Numbness, Focal Weakness, Syncope, Tingling, Weakness - Hematologic/Lymphatic Hematologic: absent: Easy Bleeding, Easy Bruising Past Patient History - Infectious Disease Hx of Infectious Diseases: None - Past Social History Smoking Status: Former Smoker - CARDIAC Hx Cardiac Disorders: Yes Hx Hypertension: Yes - PULMONARY Hx Respiratory Disorders: Yes (SMOKED 3 PPD QUIT USING CHANTIX.) Hx Chronic Obstructive Pulmonary Disease (COPD): Yes - NEUROLOGICAL Hx Neurological Disorder: No - HEENT Hx HEENT Problems: No - RENAL Hx Chronic Kidney Disease: No - ENDOCRINE/METABOLIC Hx Endocrine Disorders: No - HEMATOLOGICAL/ONCOLOGICAL Hx Blood Disorders: No - INTEGUMENTARY Hx Dermatological Problems: No - MUSCULOSKELETAL/RHEUMATOLOGICAL Hx Falls: No - GASTROINTESTINAL Hx Gastrointestinal Disorders: Yes (COLITIS 04-06-16) - GENITOURINARY/GYNECOLOGICAL Hx Genitourinary Disorders: Yes (CYST REMOVED IN BETWEEN BREAST.TUBAL LIGATION) - PSYCHIATRIC Hx Psychophysiologic Disorder: Yes (SMOKED 3 PPD.QUIT) Hx Anxiety: No Hx Bipolar Disorder: No Hx Depression: No Hx Emotional Abuse: No Hx Hallucinations: No Hx Panic Symptoms: No Hx Post Traumatic Stress Disorder: No Hx Psychosis: No Hx Physical Abuse: No Hx Schizophrenia: No Hx Sexual Abuse: No - SURGICAL HISTORY Hx Surgeries: Yes (TORN ROTATOR CUFF,TUBAL LIGATION,CYST REMOVED IN BETWEEN BREAST.) - ANESTHESIA Hx Anesthesia Reactions: No Hx Malignant Hyperthermia: No Meds Allergies/Adverse Reactions: Allergies Allergy/AdvReac Type Severity Reaction Status Date / Time No Known Allergies Allergy Verified 04/22/16 12:07 Physical Exam - Constitutional Appears: Well, No Acute Distress - Head Exam Head Exam: ATRAUMATIC, NORMOCEPHALIC - Eye Exam Eye Exam: EOMI, Normal appearance - ENT Exam ENT Exam: Mucous Membranes Moist - Respiratory Exam Respiratory Exam: Clear to Auscultation Bilateral, NORMAL BREATHING PATTERN. absent: Decreased Breath Sounds, Rales, Rhonchi, Wheezes, Respiratory Distress - Cardiovascular Exam Cardiovascular Exam: REGULAR RHYTHM, +S1, +S2. absent: Tachycardia, Diastolic murmur, Systolic Murmur - GI/Abdominal Exam GI & Abdominal Exam: Normal Bowel Sounds, Soft, Tenderness (LLQ, mild). absent : Distended, Firm, Guarding - Extremities Exam Extremities exam: Positive for: normal inspection. Negative for: pedal edema, tenderness - Back Exam Back exam: NORMAL INSPECTION - Neurological Exam Neurological exam: Alert, Oriented x3 - Skin Skin Exam: Dry, Intact, Normal Color, Warm Results - Vital Signs Recent Vital Signs: Last Vital Signs Temp 99.5 F 03/27/17 08:17 Pulse 92 H 03/27/17 08:17 Resp 20 03/27/17 08:17 BP 160/58 H 03/27/17 08:17 Pulse Ox 94 L 03/27/17 08:17 - Labs Result Diagrams: 03/27/17 05:40 03/27/17 05:40 Labs: Laboratory Results - last 24 hr 03/27/17 03/27/17 05:40 05:40 WBC 10.9 D RBC 4.14 Hgb 12.2 Hct 37.6 MCV 90.8 MCH 29.5 MCHC 32.4 RDW 14.7 H Plt Count 193 MPV 10.2 Gran % 82.6 H Lymph % (Auto) 11.1 L Preble % (Auto) 5.2 Eos % (Auto) 1.0 L Baso % (Auto) 0.1 Gran # 8.97 H Lymph # 1.2 Preble # 0.6 Eos # 0.1 Baso # 0.01 Sodium 144 Potassium 3.6 Chloride 106 Carbon Dioxide 29 Anion Gap 13 BUN 7 Creatinine 0.7 Est GFR ( Amer) > 60 Est GFR (Non-Af Amer) > 60 Random Glucose 104 Calcium 8.4 Total Bilirubin 1.4 H AST 23 ALT 33 Alkaline Phosphatase 81 Total Protein 6.4 Albumin 3.5 Globulin 2.9 Albumin/Globulin Ratio 1.2 Assessment & Plan - Assessment and Plan (Free Text) Assessment: 61 F with PMH that includes hypertension, COPD, ulcerative colitis, and Hidroadenitis supporativa presents with diverticulitis. CT abd/pel showed acute sigmoid diverticulitis with mircoperforation, no abscess, with reactive mesenteric lymphadenopathy. Plan: 1. diverticulitis - IVF @125 - cont abx, metronidazole, zosyn - NPO on admission, diet advanced clear liquid diet - surgery consulted, no surgical intervention - GI consulted 2. h/o ulcerative colitis - patient was on humira - per GI will hold until improvement in clinical course <Vipul Vallejo - Last Filed: 03/27/17 21:31> Results - Vital Signs Recent Vital Signs: Last Vital Signs Temp 98.5 F 03/27/17 16:00 Pulse 78 03/27/17 16:00 Resp 20 03/27/17 16:00 BP 156/63 H 03/27/17 16:00 Pulse Ox 95 03/27/17 16:00 - Labs Result Diagrams: 03/27/17 05:40 03/27/17 05:40 Labs: Laboratory Results - last 24 hr 03/27/17 03/27/17 05:40 05:40 WBC 10.9 D RBC 4.14 Hgb 12.2 Hct 37.6 MCV 90.8 MCH 29.5 MCHC 32.4 RDW 14.7 H Plt Count 193 MPV 10.2 Gran % 82.6 H Lymph % (Auto) 11.1 L Preble % (Auto) 5.2 Eos % (Auto) 1.0 L Baso % (Auto) 0.1 Gran # 8.97 H Lymph # 1.2 Preble # 0.6 Eos # 0.1 Baso # 0.01 Sodium 144 Potassium 3.6 Chloride 106 Carbon Dioxide 29 Anion Gap 13 BUN 7 Creatinine 0.7 Est GFR ( Amer) > 60 Est GFR (Non-Af Amer) > 60 Random Glucose 104 Calcium 8.4 Total Bilirubin 1.4 H AST 23 ALT 33 Alkaline Phosphatase 81 Total Protein 6.4 Albumin 3.5 Globulin 2.9 Albumin/Globulin Ratio 1.2 Assessment & Plan - Assessment and Plan (Free Text) Plan: Pt seen and examined by me. Has acute diverticulitis clinically. Note of manager medical device reviewed and I agree with it. Labs reviewed and medications reviewed.GI and Surgery evaluation. IV Flagyl and Zosyn for Abx. Pain controlled. Spoke to ER physician last night. Spoke to to give update at bedside.
--- NOTE | 2017-03-27 12:14 | CP.PCM.PN ---
Subjective - Date & Time of Evaluation Date of Evaluation: 03/27/17 Time of Evaluation: 12:13 - Subjective Subjective: SURGERY PROGRESS NOTE FOR DR. BUTLER 61F seen and examined at bedside. Patient state pain is improved, denies nausea , vomiting, fevers, chill. Tolerating diet. Objective - Vital Signs/Intake and Output Vital Signs (last 24 hours): Temp Pulse Resp BP Pulse Ox 99.5 F 92 H 20 160/58 H 94 L 03/27/17 08:17 03/27/17 08:17 03/27/17 08:17 03/27/17 08:17 03/27/17 08:17 Intake and Output: 03/27/17 03/27/17 06:59 18:59 Intake Total 0 Balance 0 - Medications Medications: Current Medications Acetaminophen (Tylenol 325mg Tab) 650 mg PO Q6H PRN PRN Reason: Fever >100.5 F Last Admin: 03/26/17 17:36 Dose: 650 mg Diphenhydramine HCl (Benadryl) 50 mg PO Q6 PRN PRN Reason: Rash Last Admin: 03/26/17 20:49 Dose: 50 mg Metronidazole (Flagyl) 500 mg in 100 mls @ 100 mls/hr IVPB Q8 ALEK PRN Reason: Protocol Last Admin: 03/27/17 05:59 Dose: 100 mls/hr Piperacillin Sod/Tazobactam Sod (Zosyn 3.375 In Ns 100ml) 100 mls @ 200 mls/hr IVPB Q6 ALEK PRN Reason: Protocol Stop: 04/05/17 00:01 Last Admin: 03/27/17 05:59 Dose: 200 mls/hr Sodium Chloride (Sodium Chloride 0.9%) 1,000 mls @ 125 mls/hr IV .Q8H ALEK Last Admin: 03/27/17 05:59 Dose: 125 mls/hr Morphine Sulfate (Morphine) 2 mg IVP Q4H PRN PRN Reason: Pain, severe (8-10) Ondansetron HCl (Zofran Inj) 4 mg IVP Q6H PRN PRN Reason: Nausea/Vomiting Oxycodone/Acetaminophen (Percocet 5/325 Mg Tab) 1 tab PO Q4H PRN PRN Reason: Pain, moderate (4-7) Stop: 03/29/17 20:27 - Labs Labs: 03/27/17 05:40 03/27/17 05:40 - Constitutional Appears: Non-toxic, No Acute Distress - Respiratory Exam Respiratory Exam: Clear to Ausculation Bilateral, NORMAL BREATHING PATTERN - Cardiovascular Exam Cardiovascular Exam: REGULAR RHYTHM, +S1, +S2 - GI/Abdominal Exam GI & Abdominal Exam: Soft. absent: Distended, Firm, Guarding, Rigid, Tenderness , Rebound - Neurological Exam Neurological Exam: Alert, Awake - Skin Skin Exam: Dry, Intact, Normal Color, Rash (abdominal, periumbilical), Warm Assessment and Plan - Assessment and Plan (Free Text) Assessment: 61F with hx of Ulcerative colitis presents with Sigmoid diverticulitis Plan: - ADAT - IVF, antibiotics - No surgical intervention at this time Discussed with Dr. Dima Blum, PGY2
--- NOTE | 2017-03-27 14:33 | CP.PCM.CON ---
History of Present Illness - History of Present Illness History of Present Illness: 61 year old female with PMH of Ulcerative colitis, COPD, HTN, obesity with BMI 34, hidradenitis suppurativa, pre-diabetes, S/P rotator cuff repair, S/P tubal ligation, history of pneumonia came in to [facility] complaining of sudden onset left lower quadrant pain a day prior to admission. It was sharp in nature, intermittent, more so on the hip side and she initially thought it may have been her reproductive tract. She denies eating anything out of the ordinary. She also suddenly developed some wheals on her abdomen, arms and legs which were pruritic. She denies animal contacts, had subjective fever and chills , some nausea but no vomiting, no chest pain, no SOB, no cough or rhinohrrhea, no headache or dizziness, no dysuria, no diarrhea. She was given Benadryl in the ED and continued on the medical floor and her wheals have improved. CT scan of the abdomen and pelvis revealed sigmoid diverticulitis. Infectious Diseases consult is requested to further evaluate and manage. Review of Systems - Review of Systems All systems: reviewed and no additional remarkable complaints except (as per HPI ) Past Patient History - Infectious Disease Hx of Infectious Diseases: None - Past Social History Smoking Status: Former Smoker - CARDIAC Hx Cardiac Disorders: Yes Hx Hypertension: Yes - PULMONARY Hx Respiratory Disorders: Yes (SMOKED 3 PPD QUIT USING CHANTIX.) Hx Chronic Obstructive Pulmonary Disease (COPD): Yes - NEUROLOGICAL Hx Neurological Disorder: No - HEENT Hx HEENT Problems: No - RENAL Hx Chronic Kidney Disease: No - ENDOCRINE/METABOLIC Hx Endocrine Disorders: No - HEMATOLOGICAL/ONCOLOGICAL Hx Blood Disorders: No - INTEGUMENTARY Hx Dermatological Problems: No - MUSCULOSKELETAL/RHEUMATOLOGICAL Hx Falls: No - GASTROINTESTINAL Hx Gastrointestinal Disorders: Yes (COLITIS 10-5-16) - GENITOURINARY/GYNECOLOGICAL Hx Genitourinary Disorders: Yes (CYST REMOVED IN BETWEEN BREAST.TUBAL LIGATION) - PSYCHIATRIC Hx Psychophysiologic Disorder: Yes (SMOKED 3 PPD.QUIT) Hx Anxiety: No Hx Bipolar Disorder: No Hx Depression: No Hx Emotional Abuse: No Hx Hallucinations: No Hx Panic Symptoms: No Hx Post Traumatic Stress Disorder: No Hx Psychosis: No Hx Physical Abuse: No Hx Schizophrenia: No Hx Sexual Abuse: No - SURGICAL HISTORY Hx Surgeries: Yes (TORN ROTATOR CUFF,TUBAL LIGATION,CYST REMOVED IN BETWEEN BREAST.) - ANESTHESIA Hx Anesthesia Reactions: No Hx Malignant Hyperthermia: No Meds Allergies/Adverse Reactions: Allergies Allergy/AdvReac Type Severity Reaction Status Date / Time No Known Allergies Allergy Verified 04/22/16 12:07 - Medications Medications: Current Medications Acetaminophen (Tylenol 325mg Tab) 650 mg PO Q6H PRN PRN Reason: Fever >100.5 F Last Admin: 03/26/17 17:36 Dose: 650 mg Diphenhydramine HCl (Benadryl) 50 mg PO Q6 PRN PRN Reason: Rash Last Admin: 03/26/17 20:49 Dose: 50 mg Metronidazole (Flagyl) 500 mg in 100 mls @ 100 mls/hr IVPB Q8 ALEK PRN Reason: Protocol Last Admin: 03/27/17 05:59 Dose: 100 mls/hr Piperacillin Sod/Tazobactam Sod (Zosyn 3.375 In Ns 100ml) 100 mls @ 200 mls/hr IVPB Q6 ALEK PRN Reason: Protocol Stop: 04/05/17 00:01 Last Admin: 03/27/17 05:59 Dose: 200 mls/hr Sodium Chloride (Sodium Chloride 0.9%) 1,000 mls @ 125 mls/hr IV .Q8H ALEK Last Admin: 03/27/17 05:59 Dose: 125 mls/hr Morphine Sulfate (Morphine) 2 mg IVP Q4H PRN PRN Reason: Pain, severe (8-10) Ondansetron HCl (Zofran Inj) 4 mg IVP Q6H PRN PRN Reason: Nausea/Vomiting Oxycodone/Acetaminophen (Percocet 5/325 Mg Tab) 1 tab PO Q4H PRN PRN Reason: Pain, moderate (4-7) Stop: 03/29/17 20:27 Physical Exam - Constitutional Appears: Non-toxic, No Acute Distress - Head Exam Head Exam: NORMAL INSPECTION - ENT Exam ENT Exam: Mucous Membranes Moist - Neck Exam Neck exam: Negative for: Lymphadenopathy, Meningismus - Respiratory Exam Respiratory Exam: Decreased Breath Sounds - Cardiovascular Exam Cardiovascular Exam: +S1, +S2 - GI/Abdominal Exam GI & Abdominal Exam: Soft. absent: Tenderness Results - Vital Signs Recent Vital Signs: Last Vital Signs Temp 100.0 F H 03/26/17 18:47 Pulse 85 03/26/17 18:47 Resp 20 03/26/17 18:47 BP 131/52 L 03/26/17 18:47 Pulse Ox 92 L 03/26/17 18:47 - Labs Result Diagrams: 03/27/17 05:40 03/27/17 05:40 Labs: Laboratory Results - last 24 hr 03/27/17 05:40 WBC 10.9 D RBC 4.14 Hgb 12.2 Hct 37.6 MCV 90.8 MCH 29.5 MCHC 32.4 RDW 14.7 H Plt Count 193 MPV 10.2 Gran % 82.6 H Lymph % (Auto) 11.1 L [place] % (Auto) 5.2 Eos % (Auto) 1.0 L Baso % (Auto) 0.1 Gran # 8.97 H Lymph # 1.2 [place] # 0.6 Eos # 0.1 Baso # 0.01 Assessment & Plan - Assessment and Plan (Free Text) Plan: Assessment Sepsis due to acute sigmoid diverticulitis with microperforation Wheals, etiology not determined currently Ulcerative colitis COPD HTN obesity with BMI 34 hidradenitis suppurativa pre-diabetes S/P rotator cuff repair S/P tubal ligation history of pneumonia Plan Started patient on Zosyn and will monitor clinically continue antihistamines and observe if rash / wheals recur
[2017-03-28] MEDS: Piperacillin/Tazobact 3.375 gm 100 ML IVPB SCH ×4 (00:24→23:44)
--- NOTE | 2017-03-28 07:57 | CP.PCM.PN ---
<Dorota Gloria - Last Filed: 03/28/17 11:51> Subjective - Date & Time of Evaluation Date of Evaluation: 03/28/17 Time of Evaluation: 07:55 - Subjective Subjective: PGY-[address] Vallejo Patient seen and examined at bedside. No acute distress. Patient states that she fells better, her abd pain is mostly resolved. Patient states that her rash is improved. She reports 1 episode of loose BM. Tolerating liquid diet. Objective - Vital Signs/Intake and Output Vital Signs (last 24 hours): Temp Pulse Resp BP Pulse Ox 98.5 F 78 20 156/63 H 95 03/27/17 16:00 03/27/17 16:00 03/27/17 16:00 03/27/17 16:00 03/27/17 16:00 - Medications Medications: Current Medications Acetaminophen (Tylenol 325mg Tab) 650 mg PO Q6H PRN PRN Reason: Fever >100.5 F Last Admin: 03/27/17 22:12 Dose: 650 mg Diphenhydramine HCl (Benadryl) 50 mg PO Q6 PRN PRN Reason: Rash Last Admin: 03/27/17 22:11 Dose: 50 mg Piperacillin Sod/Tazobactam Sod (Zosyn 3.375 In Ns 100ml) 100 mls @ 200 mls/hr IVPB Q6 ALEK PRN Reason: Protocol Stop: 04/05/17 00:01 Last Admin: 03/28/17 05:47 Dose: 200 mls/hr Sodium Chloride (Sodium Chloride 0.9%) 1,000 mls @ 75 mls/hr IV .[id number] ALEK Last Admin: 03/27/17 22:23 Dose: 75 mls/hr Morphine Sulfate (Morphine) 2 mg IVP Q4H PRN PRN Reason: Pain, severe (8-10) Ondansetron HCl (Zofran Inj) 4 mg IVP Q6H PRN PRN Reason: Nausea/Vomiting Oxycodone/Acetaminophen (Percocet 5/325 Mg Tab) 1 tab PO Q4H PRN PRN Reason: Pain, moderate (4-7) Stop: 03/29/17 20:27 - Labs Labs: 03/27/17 05:40 03/27/17 05:40 - Constitutional Appears: Well, No Acute Distress - Head Exam Head Exam: ATRAUMATIC, NORMAL INSPECTION, NORMOCEPHALIC - Eye Exam Eye Exam: EOMI, Normal appearance - ENT Exam ENT Exam: Mucous Membranes Moist - Respiratory Exam Respiratory Exam: Clear to Ausculation Bilateral, NORMAL BREATHING PATTERN. absent: Decreased Breath Sounds, Rales, Rhonchi, Wheezes, Respiratory Distress - Cardiovascular Exam Cardiovascular Exam: REGULAR RHYTHM, +S1, +S2. absent: Tachycardia, Murmur - GI/Abdominal Exam GI & Abdominal Exam: Soft, Normal Bowel Sounds. absent: Distended, Firm, Guarding, Tenderness - Extremities Exam Extremities Exam: Normal Inspection. absent: Pedal Edema - Neurological Exam Neurological Exam: Alert, Awake, Oriented x3 Neuro motor strength exam: Left Upper Extremity: 0, Right Upper Extremity: 0, Left Lower Extremity: 0, Right Lower Extremity: 0 - Skin Skin Exam: Dry, Intact, Normal Color, Warm Assessment and Plan - Assessment and Plan (Free Text) Assessment: 61 F with PMH that includes hypertension, COPD, ulcerative colitis, and Hidroadenitis supporativa presents with diverticulitis. CT abd/pel showed acute sigmoid diverticulitis with mircoperforation, no abscess, with reactive mesenteric lymphadenopathy. Plan: 1. diverticulitis - abd pain improving - IVF decreased to @75 - cont abx, zosyn - ID consulted - if patient continues to have loose BM, consider c. diff - currently clear liquid diet, advance as tolerated - surgery consulted, no surgical intervention - GI consulted 2. h/o ulcerative colitis - patient was on humira - per GI will hold until improvement in clinical course 3. rash - improved - cont antihistamine, Benadryl as needed - ID following <Vipul Vallejo S - Last Filed: 03/28/17 16:25> Objective - Vital Signs/Intake and Output Vital Signs (last 24 hours): Temp Pulse Resp BP Pulse Ox 98.7 F 74 20 143/66 93 L 03/28/17 08:33 03/28/17 08:33 03/28/17 08:33 03/28/17 08:33 03/28/17 08:33 - Medications Medications: Current Medications Acetaminophen (Tylenol 325mg Tab) 650 mg PO Q6H PRN PRN Reason: Fever >100.5 F Last Admin: 03/27/17 22:12 Dose: 650 mg Diphenhydramine HCl (Benadryl) 50 mg PO Q6 PRN PRN Reason: Rash Last Admin: 03/27/17 22:11 Dose: 50 mg Piperacillin Sod/Tazobactam Sod (Zosyn 3.375 In Ns 100ml) 100 mls @ 200 mls/hr IVPB Q6 ALEK PRN Reason: Protocol Stop: 04/05/17 00:01 Last Admin: 03/28/17 05:47 Dose: 200 mls/hr Morphine Sulfate (Morphine) 2 mg IVP Q4H PRN PRN Reason: Pain, severe (8-10) Ondansetron HCl (Zofran Inj) 4 mg IVP Q6H PRN PRN Reason: Nausea/Vomiting Oxycodone/Acetaminophen (Percocet 5/325 Mg Tab) 1 tab PO Q4H PRN PRN Reason: Pain, moderate (4-7) Stop: 03/29/17 20:27 - Labs Labs: 03/28/17 15:30 03/27/17 05:40 Assessment and Plan - Assessment and Plan (Free Text) Plan: Pt seen and examined. Reviewed the note of the resident and I agree with it. Meds and labs reviewed. Pain is improving. Gi input appreciated. No surgical intervention. Tolerating diet. Plan for D/C in about 24h if pt continues to improve.
--- NOTE | 2017-03-28 11:48 | CP.PCM.PN ---
Subjective - Date & Time of Evaluation Date of Evaluation: 03/28/17 Time of Evaluation: 10:15 - Subjective Subjective: Less abdominal pain, no nausea, no vomiting, no diarrhea, no more rash or wheals. No fevers. Objective - Vital Signs/Intake and Output Vital Signs (last 24 hours): Temp Pulse Resp BP Pulse Ox 98.5 F 78 20 156/63 H 95 03/27/17 16:00 03/27/17 16:00 03/27/17 16:00 03/27/17 16:00 03/27/17 16:00 - Medications Medications: Current Medications Acetaminophen (Tylenol 325mg Tab) 650 mg PO Q6H PRN PRN Reason: Fever >100.5 F Last Admin: 03/27/17 22:12 Dose: 650 mg Diphenhydramine HCl (Benadryl) 50 mg PO Q6 PRN PRN Reason: Rash Last Admin: 03/27/17 22:11 Dose: 50 mg Piperacillin Sod/Tazobactam Sod (Zosyn 3.375 In Ns 100ml) 100 mls @ 200 mls/hr IVPB Q6 ALEK PRN Reason: Protocol Stop: 04/05/17 00:01 Last Admin: 03/28/17 05:47 Dose: 200 mls/hr Sodium Chloride (Sodium Chloride 0.9%) 1,000 mls @ 75 mls/hr IV .[id number] [facility] Last Admin: 03/27/17 22:23 Dose: 75 mls/hr Morphine Sulfate (Morphine) 2 mg IVP Q4H PRN PRN Reason: Pain, severe (8-10) Ondansetron HCl (Zofran Inj) 4 mg IVP Q6H PRN PRN Reason: Nausea/Vomiting Oxycodone/Acetaminophen (Percocet 5/325 Mg Tab) 1 tab PO Q4H PRN PRN Reason: Pain, moderate (4-7) Stop: 03/29/17 20:27 - Labs Labs: 03/27/17 05:40 03/27/17 05:40 - Constitutional Appears: Non-toxic, No Acute Distress - Head Exam Head Exam: NORMAL INSPECTION - ENT Exam ENT Exam: Mucous Membranes Moist - Neck Exam Neck Exam: absent: Meningismus - Respiratory Exam Respiratory Exam: Decreased Breath Sounds - Cardiovascular Exam Cardiovascular Exam: +S1, +S2 - GI/Abdominal Exam GI & Abdominal Exam: Soft. absent: Tenderness Assessment and Plan - Assessment and Plan (Free Text) Plan: Assessment Sepsis due to acute sigmoid diverticulitis with microperforation, slowly improving Wheals, etiology not determined currently Ulcerative colitis COPD HTN obesity with BMI 34 hidradenitis suppurativa pre-diabetes S/P rotator cuff repair S/P tubal ligation history of pneumonia Plan continue Zosyn day 2 and will continue to monitor clinically continue antihistamines and observe if rash / wheals recur patient is advancing her diet
--- NOTE | 2017-03-28 13:09 | PN ---
The patient was seen on the floor. Her pain is better. Her abdomen is soft and nontender. I did discussion with Dr. Neumann who believe this to be ulcerative colitis, which he is actively following. The CAT scan is re-reviewed. There are certainly inflammatory changes consistent both with diverticulitis, but also with ulcerative colitis. I will follow peripherally as necessary, please recall as necessary prior to surgical intervention. Rip Ch MD
--- NOTE | 2017-03-28 15:16 | CP.PCM.PN ---
<Maira Mike - Last Filed: 03/28/17 15:13> Subjective - Date & Time of Evaluation Date of Evaluation: 03/28/17 Time of Evaluation: 15:13 - Subjective Subjective: GI PROGRESS NOTE FOR DR. MICHEL Patient seen and examined at bedside. She states that she still has a little pain. She is tolerating full liquid diet. She has some occasional nausea but no vomiting. She has some diarrhea and feels incomplete evacuation of bowels. Objective - Vital Signs/Intake and Output Vital Signs (last 24 hours): Temp Pulse Resp BP Pulse Ox 98.7 F 74 20 143/66 93 L 03/28/17 08:33 03/28/17 08:33 03/28/17 08:33 03/28/17 08:33 03/28/17 08:33 - Medications Medications: Current Medications Acetaminophen (Tylenol 325mg Tab) 650 mg PO Q6H PRN PRN Reason: Fever >100.5 F Last Admin: 03/27/17 22:12 Dose: 650 mg Diphenhydramine HCl (Benadryl) 50 mg PO Q6 PRN PRN Reason: Rash Last Admin: 03/27/17 22:11 Dose: 50 mg Piperacillin Sod/Tazobactam Sod (Zosyn 3.375 In Ns 100ml) 100 mls @ 200 mls/hr IVPB Q6 ALEK PRN Reason: Protocol Stop: 04/05/17 00:01 Last Admin: 03/28/17 05:47 Dose: 200 mls/hr Morphine Sulfate (Morphine) 2 mg IVP Q4H PRN PRN Reason: Pain, severe (8-10) Ondansetron HCl (Zofran Inj) 4 mg IVP Q6H PRN PRN Reason: Nausea/Vomiting Oxycodone/Acetaminophen (Percocet 5/325 Mg Tab) 1 tab PO Q4H PRN PRN Reason: Pain, moderate (4-7) Stop: 03/29/17 20:27 - Labs Labs: 03/27/17 05:40 03/27/17 05:40 - Constitutional Appears: Well, Non-toxic, No Acute Distress - Head Exam Head Exam: ATRAUMATIC, NORMAL INSPECTION - Eye Exam Eye Exam: EOMI, Normal appearance - Respiratory Exam Respiratory Exam: NORMAL BREATHING PATTERN. absent: Respiratory Distress - Cardiovascular Exam Cardiovascular Exam: +S1, +S2 - GI/Abdominal Exam GI & Abdominal Exam: Soft. absent: Distended, Firm, Guarding, Rigid, Tenderness , Rebound - Neurological Exam Neurological Exam: Alert, Awake, Oriented x3 - Psychiatric Exam Psychiatric exam: Normal Affect, Normal Mood - Skin Skin Exam: Dry, Normal Color, Warm Assessment and Plan - Assessment and Plan (Free Text) Assessment: 61yo F with PMHx of HTN, COPD, Ulcerative colitis, who presented with diverticulitis with microperforation - Improving clinically - Tolerating full liquid diet - Continue antibiotics per ID - Surgery signed off as no surgical intervention is needed at this time - Continue to hold Humira - Patient will need repeat CT prior to restarting Humira to ensure inflammation from diverticulitis has improved - Discussed plan with Dr. Thien Mike PGY-3 <Wesley Michel V - Last Filed: 03/28/17 23:48> Objective - Vital Signs/Intake and Output Vital Signs (last 24 hours): Temp Pulse Resp BP Pulse Ox 98.0 F 77 20 157/70 H 93 L 03/28/17 22:20 03/28/17 22:00 03/28/17 22:00 03/28/17 22:00 03/28/17 16:00 Intake and Output: 03/28/17 03/29/17 18:59 06:59 Intake Total 540 Balance 540 - Medications Medications: Current Medications Acetaminophen (Tylenol 325mg Tab) 650 mg PO Q6H PRN PRN Reason: Fever >100.5 F Last Admin: 03/28/17 22:20 Dose: 650 mg Diphenhydramine HCl (Benadryl) 50 mg PO Q6 PRN PRN Reason: Rash Last Admin: 03/28/17 22:20 Dose: 50 mg Piperacillin Sod/Tazobactam Sod (Zosyn 3.375 In Ns 100ml) 100 mls @ 200 mls/hr IVPB Q6 ALEK PRN Reason: Protocol Stop: 04/05/17 00:01 Last Admin: 03/28/17 23:44 Dose: 200 mls/hr Morphine Sulfate (Morphine) 2 mg IVP Q4H PRN PRN Reason: Pain, severe (8-10) Ondansetron HCl (Zofran Inj) 4 mg IVP Q6H PRN PRN Reason: Nausea/Vomiting Oxycodone/Acetaminophen (Percocet 5/325 Mg Tab) 1 tab PO Q4H PRN PRN Reason: Pain, moderate (4-7) Stop: 03/29/17 20:27 - Labs Labs: 03/28/17 15:30 03/27/17 05:40 Attending/Attestation - Attestation I have personally seen and examined this patient.: Yes I have fully participated in the care of the patient.: Yes I have reviewed all pertinent clinical information, including history, physical exam and plan: Yes Notes (Text): This is an addendum to GI progress report dictated by Resident.The patient was seen and examined earlier. Medical records, lab studies, imagings were reviewed. Last 24 hours events reviewed. Agreed with the above treatment plan as outlined in Resident's notes the with the addition of the following 03/28/17 20:48
[2017-03-28 15:43] LABS: BASO # 0.02 K/mm3 (0.0-2.0); BASO % 0.3 % (0.0-3.0); EOS # 0.2 (0.0-0.7); EOS % 2.6 % (1.5-5.0); GRAN # 5.68 (1.4-6.5); GRAN % 77.2 % (50.0-68.0); HEMATOCRIT 37.8 % (36.0-48.0); LYMPH % 13.9 % (22.0-35.0); MEAN CELL VOLUME 90.6 fl (80.0-105.0); MEAN PLATELET VOLUME 9.9 fl (7.0-11.0); MONO # 0.4 (0.1-0.6); RED CELL DISTRIBUTION WIDTH 14.3 % (11.5-14.5); WHITE BLOOD COUNT 7.4 10^3/ul (4.5-11.0)
[2017-03-29] MEDS: Piperacillin/Tazobact 3.375 gm 100 ML IVPB SCH ×3 (05:28→17:56)
[2017-03-29 06:42] LABS: ALB/GLOB RATIO 1.1 (1.1-1.8); ALKALINE PHOSPHATASE 77 U/L (38-126); ALT/SGPT 34 U/L (7-56); AST/SGOT 26 U/L (14-36); BILIRUBIN,TOTAL 0.7 mg/dL (0.2-1.3); BLOOD UREA NITROGEN 4 mg/dL (7-21); CALCIUM 8.8 mg/dL (8.4-10.5); CARBON DIOXIDE 30 mmol/L (21-33); CHLORIDE 104 mmol/L (95-110); GFR AFRICAN-AMERICAN > 60; GLUCOSE,RANDOM 102 mg/dL (70-110); POTASSIUM 3.5 mmol/L (3.6-5.0); SODIUM 143 mmol/L (132-148); TOTAL PROTEIN 6.2 g/dL (5.8-8.3)
--- NOTE | 2017-03-29 07:24 | CP.PCM.PN ---
<Dorota Gloria - Last Filed: 03/29/17 09:52> Subjective - Date & Time of Evaluation Date of Evaluation: 03/29/17 Time of Evaluation: 07:21 - Subjective Subjective: PGY-[address] Vallejo Patient seen and examined at bedside. No acute distress, patient sleeping. Patient states that here LLQ abd pain has improved but continues to be tender with palpation. She denies fever, chills, chest pain, sob. She is tolerating full liquid diet. Patient reports bloating most likely from her colitis. Objective - Vital Signs/Intake and Output Vital Signs (last 24 hours): Temp Pulse Resp BP Pulse Ox 98.0 F 77 20 157/70 H 93 L 03/28/17 22:20 03/28/17 22:00 03/28/17 22:00 03/28/17 22:00 03/28/17 16:00 Intake and Output: 03/29/17 03/29/17 06:59 18:59 Intake Total 1440 Balance 1440 - Medications Medications: Current Medications Acetaminophen (Tylenol 325mg Tab) 650 mg PO Q6H PRN PRN Reason: Fever >100.5 F Last Admin: 03/28/17 22:20 Dose: 650 mg Diphenhydramine HCl (Benadryl) 50 mg PO Q6 PRN PRN Reason: Rash Last Admin: 03/29/17 05:36 Dose: 50 mg Piperacillin Sod/Tazobactam Sod (Zosyn 3.375 In Ns 100ml) 100 mls @ 200 mls/hr IVPB Q6 ALEK PRN Reason: Protocol Stop: 04/05/17 00:01 Last Admin: 03/29/17 05:28 Dose: 200 mls/hr Morphine Sulfate (Morphine) 2 mg IVP Q4H PRN PRN Reason: Pain, severe (8-10) Ondansetron HCl (Zofran Inj) 4 mg IVP Q6H PRN PRN Reason: Nausea/Vomiting Oxycodone/Acetaminophen (Percocet 5/325 Mg Tab) 1 tab PO Q4H PRN PRN Reason: Pain, moderate (4-7) Stop: 03/29/17 20:27 - Labs Labs: 03/28/17 15:30 03/27/17 05:40 - Constitutional Appears: Well, No Acute Distress - Head Exam Head Exam: ATRAUMATIC, NORMOCEPHALIC - Eye Exam Eye Exam: EOMI, Normal appearance - ENT Exam ENT Exam: Mucous Membranes Moist - Respiratory Exam Respiratory Exam: Clear to Ausculation Bilateral, NORMAL BREATHING PATTERN. absent: Decreased Breath Sounds, Rales, Rhonchi, Wheezes, Respiratory Distress - Cardiovascular Exam Cardiovascular Exam: REGULAR RHYTHM, +S1, +S2. absent: Tachycardia, Murmur - GI/Abdominal Exam GI & Abdominal Exam: Soft, Tenderness (mild ), Normal Bowel Sounds. absent: Distended, Firm - Extremities Exam Extremities Exam: Normal Inspection. absent: Pedal Edema, Tenderness - Neurological Exam Neurological Exam: Alert, Awake, CN II-XII Intact, Oriented x3 - Skin Skin Exam: Dry, Intact, Normal Color, Warm Assessment and Plan - Assessment and Plan (Free Text) Assessment: 61 F with PMH that includes hypertension, COPD, ulcerative colitis, and Hidroadenitis supporativa presents with diverticulitis. CT abd/pel showed acute sigmoid diverticulitis with mircoperforation, no abscess, with reactive mesenteric lymphadenopathy. Plan: 1. diverticulitis - abd pain improving - stopped IVF due increased BP and tolerated diet - cont abx, zosyn - ID consulted - tolerating full liquid diet, advance diet as tolerated - surgery consulted, no surgical intervention - GI consulted - patient will need repeat CT abd in 1 week 2. h/o ulcerative colitis - patient was on humira - per GI will hold until improvement in clinical course 3. rash - improved - cont antihistamine, Benadryl as needed - ID following 4. HTN - stop IVF - restarted home med norvasc <Vipul Vallejo S - Last Filed: 03/29/17 20:51> Objective - Vital Signs/Intake and Output Vital Signs (last 24 hours): Temp Pulse Resp BP Pulse Ox 98.5 F 83 20 128/55 L 93 L 03/29/17 16:58 03/29/17 16:58 03/29/17 16:58 03/29/17 16:58 03/29/17 16:58 - Medications Medications: Current Medications Acetaminophen (Tylenol 325mg Tab) 650 mg PO Q6H PRN PRN Reason: Fever >100.5 F Last Admin: 03/28/17 22:20 Dose: 650 mg Amlodipine Besylate (Norvasc) 5 mg PO DAILY ALEK Last Admin: 03/29/17 09:17 Dose: 5 mg Diphenhydramine HCl (Benadryl) 50 mg PO Q6 PRN PRN Reason: Rash Last Admin: 03/29/17 18:10 Dose: 50 mg Piperacillin Sod/Tazobactam Sod (Zosyn 3.375 In Ns 100ml) 100 mls @ 200 mls/hr IVPB Q6 ALEK PRN Reason: Protocol Stop: 04/05/17 00:01 Last Admin: 03/29/17 17:56 Dose: 200 mls/hr Morphine Sulfate (Morphine) 2 mg IVP Q4H PRN PRN Reason: Pain, severe (8-10) Ondansetron HCl (Zofran Inj) 4 mg IVP Q6H PRN PRN Reason: Nausea/Vomiting - Labs Labs: 03/28/17 15:30 03/29/17 06:09 Assessment and Plan - Assessment and Plan (Free Text) Plan: Pt seen and examined. Above note of medical library assistant reviewed and agree. Labs and medications reviewed. Pain is improved. Spoke to Dr Neumann. He will speak to pt's Manager Of [employer]. Possible D/C in 24 if pt continues to improve. Will most likely need repeat CT in about 1 week.
[2017-03-29] MEDS ORDERED: Potassium Chloride 20 mEq ER Tab PO ONE (08:57)
--- NOTE | 2017-03-29 09:02 | CP.PCM.PN ---
Subjective - Date & Time of Evaluation Date of Evaluation: 03/29/17 Time of Evaluation: 08:00 - Subjective Subjective: GI PROGRESS NOTE FOR DR. MICHEL Patient seen and examined at bedside. She states that her LLQ pain is subsiding. She states that her UC is acting up. She has some diarrhea but no noticeable blood. She is tolerating her full liquid diet and denies vomiting. She reports some mild nausea. She is requesting regular food. Objective - Vital Signs/Intake and Output Vital Signs (last 24 hours): Temp Pulse Resp BP Pulse Ox 98.0 F 77 20 157/70 H 93 L 03/28/17 22:20 03/28/17 22:00 03/28/17 22:00 03/28/17 22:00 03/28/17 16:00 Intake and Output: 03/29/17 03/29/17 06:59 18:59 Intake Total 1440 Balance 1440 - Medications Medications: Current Medications Acetaminophen (Tylenol 325mg Tab) 650 mg PO Q6H PRN PRN Reason: Fever >100.5 F Last Admin: 03/28/17 22:20 Dose: 650 mg Amlodipine Besylate (Norvasc) 5 mg PO DAILY ALEK Diphenhydramine HCl (Benadryl) 50 mg PO Q6 PRN PRN Reason: Rash Last Admin: 03/29/17 05:36 Dose: 50 mg Piperacillin Sod/Tazobactam Sod (Zosyn 3.375 In Ns 100ml) 100 mls @ 200 mls/hr IVPB Q6 ALEK PRN Reason: Protocol Stop: 04/05/17 00:01 Last Admin: 03/29/17 05:28 Dose: 200 mls/hr Morphine Sulfate (Morphine) 2 mg IVP Q4H PRN PRN Reason: Pain, severe (8-10) Ondansetron HCl (Zofran Inj) 4 mg IVP Q6H PRN PRN Reason: Nausea/Vomiting Oxycodone/Acetaminophen (Percocet 5/325 Mg Tab) 1 tab PO Q4H PRN PRN Reason: Pain, moderate (4-7) Stop: 03/29/17 20:27 - Labs Labs: 03/28/17 15:30 03/29/17 06:09 - Constitutional Appears: Non-toxic, No Acute Distress - Head Exam Head Exam: ATRAUMATIC, NORMAL INSPECTION - Respiratory Exam Respiratory Exam: NORMAL BREATHING PATTERN. absent: Respiratory Distress - Cardiovascular Exam Cardiovascular Exam: +S1, +S2 - GI/Abdominal Exam GI & Abdominal Exam: Soft. absent: Distended, Firm, Guarding, Rigid, Tenderness , Rebound - Neurological Exam Neurological Exam: Alert, Awake, Oriented x3 - Psychiatric Exam Psychiatric exam: Normal Affect, Normal Mood - Skin Skin Exam: Dry, Normal Color, Warm Assessment and Plan - Assessment and Plan (Free Text) Assessment: 61yo F with PMHx of HTN, COPD, Ulcerative colitis, who presented with diverticulitis with microperforation, improving - Improving clinically - Tolerating full liquid diet - Will advance to low residue diet - Continue antibiotics per ID - Continue to hold Humira - Patient will need repeat CT prior to restarting Humira to ensure inflammation from diverticulitis has improved - Recommend repeating CT 7-[address] - Discussed plan with Dr. Thien Mike PGY-3
--- NOTE | 2017-03-29 10:29 | CP.PCM.PN ---
Subjective - Date & Time of Evaluation Date of Evaluation: 03/29/17 Time of Evaluation: 09:40 - Subjective Subjective: Abdominal pain is improving, has some loose stools but not watery, no fevers, tolerating liquid diet. Objective - Vital Signs/Intake and Output Vital Signs (last 24 hours): Temp Pulse Resp BP Pulse Ox 98.0 F 77 20 157/70 H 93 L 03/28/17 22:20 03/28/17 22:00 03/28/17 22:00 03/28/17 22:00 03/28/17 16:00 Intake and Output: 03/28/17 03/29/17 18:59 06:59 Intake Total 540 Balance 540 - Medications Medications: Current Medications Acetaminophen (Tylenol 325mg Tab) 650 mg PO Q6H PRN PRN Reason: Fever >100.5 F Last Admin: 03/28/17 22:20 Dose: 650 mg Diphenhydramine HCl (Benadryl) 50 mg PO Q6 PRN PRN Reason: Rash Last Admin: 03/29/17 05:36 Dose: 50 mg Piperacillin Sod/Tazobactam Sod (Zosyn 3.375 In Ns 100ml) 100 mls @ 200 mls/hr IVPB Q6 ALEK PRN Reason: Protocol Stop: 04/05/17 00:01 Last Admin: 03/29/17 05:28 Dose: 200 mls/hr Morphine Sulfate (Morphine) 2 mg IVP Q4H PRN PRN Reason: Pain, severe (8-10) Ondansetron HCl (Zofran Inj) 4 mg IVP Q6H PRN PRN Reason: Nausea/Vomiting Oxycodone/Acetaminophen (Percocet 5/325 Mg Tab) 1 tab PO Q4H PRN PRN Reason: Pain, moderate (4-7) Stop: 03/29/17 20:27 - Labs Labs: 03/28/17 15:30 03/27/17 05:40 - Constitutional Appears: Non-toxic, No Acute Distress - Head Exam Head Exam: NORMAL INSPECTION - ENT Exam ENT Exam: Mucous Membranes Moist - Neck Exam Neck Exam: absent: Lymphadenopathy, Meningismus - Respiratory Exam Respiratory Exam: Decreased Breath Sounds - Cardiovascular Exam Cardiovascular Exam: +S1, +S2 - GI/Abdominal Exam GI & Abdominal Exam: Soft. absent: Tenderness Assessment and Plan - Assessment and Plan (Free Text) Plan: Assessment Sepsis due to acute sigmoid diverticulitis with microperforation, slowly improving Wheals, etiology not determined currently Ulcerative colitis COPD HTN obesity with BMI 34 hidradenitis suppurativa pre-diabetes S/P rotator cuff repair S/P tubal ligation history of pneumonia Plan continue Zosyn day 3 and will continue to monitor clinically continue antihistamines and observe if rash / wheals recur patient is advancing her diet - if she tolerates, solid foods, she can be switched to PO Augmentin to complete another 3-5 days
[2017-03-29 17:00] VITALS: RESP 20
[2017-03-30] MEDS: Piperacillin/Tazobact 3.375 gm 100 ML IVPB SCH ×3 (00:57→17:34)
[2017-03-30 07:46] VITALS: PULSE 65; TEMP 98.1
[2017-03-30 08:56] VITALS: O2SAT 94
--- NOTE | 2017-03-30 09:16 | CP.PCM.PN ---
<Dorota Gloria - Last Filed: 03/30/17 11:41> Subjective - Date & Time of Evaluation Date of Evaluation: 03/30/17 Time of Evaluation: 09:12 - Subjective Subjective: PGY-[address] Vallejo Patient seen and examined at bedside. No acute distress. Patient is feeling better. She reports recurrence for rash on her abdomen and upper arms. She states that her abd pain has greatly improved. He loose BM has improved. She denies chest pain, dizziness, fever, chill, abd pain, n/v. She states that she is eating slower with smaller portions and is able to tolerate her diet. Objective - Vital Signs/Intake and Output Vital Signs (last 24 hours): Temp Pulse Resp BP Pulse Ox 98.1 F 65 20 140/50 L 94 L 03/30/17 08:55 03/30/17 08:55 03/30/17 08:55 03/30/17 08:55 03/30/17 08:55 Intake and Output: 03/30/17 03/30/17 06:59 18:59 Intake Total 860 Balance 860 - Medications Medications: Current Medications Acetaminophen (Tylenol 325mg Tab) 650 mg PO Q6H PRN PRN Reason: Fever >100.5 F Last Admin: 03/28/17 22:20 Dose: 650 mg Amlodipine Besylate (Norvasc) 5 mg PO DAILY ALEK Last Admin: 03/29/17 09:17 Dose: 5 mg Diphenhydramine HCl (Benadryl) 50 mg PO Q6 PRN PRN Reason: Rash Last Admin: 03/30/17 06:19 Dose: 50 mg Piperacillin Sod/Tazobactam Sod (Zosyn 3.375 In Ns 100ml) 100 mls @ 200 mls/hr IVPB Q6 ALEK PRN Reason: Protocol Stop: 04/05/17 00:01 Last Admin: 03/30/17 00:57 Dose: 200 mls/hr Morphine Sulfate (Morphine) 2 mg IVP Q4H PRN PRN Reason: Pain, severe (8-10) Ondansetron HCl (Zofran Inj) 4 mg IVP Q6H PRN PRN Reason: Nausea/Vomiting - Labs Labs: 03/28/17 15:30 03/29/17 06:09 - Constitutional Appears: Well, No Acute Distress - Head Exam Head Exam: ATRAUMATIC, NORMOCEPHALIC - Eye Exam Eye Exam: EOMI, Normal appearance - ENT Exam ENT Exam: Mucous Membranes Moist - Respiratory Exam Respiratory Exam: Clear to Ausculation Bilateral, Rales, NORMAL BREATHING PATTERN. absent: Decreased Breath Sounds, Rhonchi, Wheezes, Respiratory Distress - Cardiovascular Exam Cardiovascular Exam: REGULAR RHYTHM, +S1, +S2. absent: Tachycardia, Murmur - GI/Abdominal Exam GI & Abdominal Exam: Soft, Normal Bowel Sounds. absent: Distended, Firm, Guarding, Tenderness - Extremities Exam Extremities Exam: Normal Inspection. absent: Pedal Edema, Tenderness - Neurological Exam Neurological Exam: Alert, Awake, Oriented x3 - Skin Skin Exam: Dry, Intact, Normal Color, Rash (macular/ papular rash located on the back of her upper arms and near her umbilicus) Assessment and Plan - Assessment and Plan (Free Text) Assessment: 61 F with PMH that includes hypertension, COPD, ulcerative colitis, and Hidroadenitis supporativa presents with diverticulitis. CT abd/pel showed acute sigmoid diverticulitis with mircoperforation, no abscess, with reactive mesenteric lymphadenopathy. Plan: 1. diverticulitis - abd pain improving - stopped IVF due increased BP - cont abx, zosyn, will switch to PO upon d/c - ID consulted - tolerating full liquid diet, advance diet as tolerated - surgery consulted, no surgical intervention - GI consulted - patient will need repeat CT abd in 1 week 2. h/o ulcerative colitis - patient was on humira - per GI will hold until improvement in clinical course 3. rash - located abd and upper arms - cont antihistamine, Benadryl as needed - ID following 4. HTN - stop IVF - cont home med norvasc <Vipul Vallejo S - Last Filed: 03/30/17 21:27> Objective - Vital Signs/Intake and Output Vital Signs (last 24 hours): Temp Pulse Resp BP Pulse Ox 98.1 F 65 20 140/60 94 L 03/30/17 08:55 03/30/17 10:14 03/30/17 08:55 03/30/17 10:14 03/30/17 08:55 - Labs Labs: 03/28/17 15:30 03/29/17 06:09 Assessment and Plan - Assessment and Plan (Free Text) Plan: Pt seen and examined. Agree with above note of medical staff services coordinator. Meds reviewed. Spoke to GI. Pt to be discharged on PO Flagyl and Cipro x [address] abd by GI next week. Pain controlled and eating well.
[2017-03-30 10:16] VITALS: BP 140/60
--- NOTE | 2017-03-30 13:42 | CP.PCM.PN ---
Subjective - Date & Time of Evaluation Date of Evaluation: 03/30/17 Time of Evaluation: 10:35 - Subjective Subjective: Comfortable, much improved abdominal pain, no fevers, no hives currently. Objective - Vital Signs/Intake and Output Vital Signs (last 24 hours): Temp Pulse Resp BP Pulse Ox 98.5 F 83 20 128/55 L 93 L 03/29/17 16:58 03/29/17 16:58 03/29/17 16:58 03/29/17 16:58 03/29/17 16:58 Intake and Output: 03/30/17 03/30/17 06:59 18:59 Intake Total 860 Balance 860 - Medications Medications: Current Medications Acetaminophen (Tylenol 325mg Tab) 650 mg PO Q6H PRN PRN Reason: Fever >100.5 F Last Admin: 03/28/17 22:20 Dose: 650 mg Amlodipine Besylate (Norvasc) 5 mg PO DAILY LAEK Last Admin: 03/29/17 09:17 Dose: 5 mg Diphenhydramine HCl (Benadryl) 50 mg PO Q6 PRN PRN Reason: Rash Last Admin: 03/30/17 06:19 Dose: 50 mg Piperacillin Sod/Tazobactam Sod (Zosyn 3.375 In Ns 100ml) 100 mls @ 200 mls/hr IVPB Q6 ALEK PRN Reason: Protocol Stop: 04/05/17 00:01 Last Admin: 03/30/17 00:57 Dose: 200 mls/hr Morphine Sulfate (Morphine) 2 mg IVP Q4H PRN PRN Reason: Pain, severe (8-10) Ondansetron HCl (Zofran Inj) 4 mg IVP Q6H PRN PRN Reason: Nausea/Vomiting - Labs Labs: 03/28/17 15:30 03/29/17 06:09 - Constitutional Appears: Non-toxic, No Acute Distress - Head Exam Head Exam: NORMAL INSPECTION - ENT Exam ENT Exam: Mucous Membranes Moist - Neck Exam Neck Exam: absent: Meningismus - Respiratory Exam Respiratory Exam: Decreased Breath Sounds - Cardiovascular Exam Cardiovascular Exam: +S1, +S2 - GI/Abdominal Exam GI & Abdominal Exam: Soft. absent: Tenderness Assessment and Plan - Assessment and Plan (Free Text) Plan: Assessment Sepsis due to acute sigmoid diverticulitis with microperforation, clinically improving Wheals, etiology not determined currently Ulcerative colitis COPD HTN obesity with BMI 34 hidradenitis suppurativa pre-diabetes S/P rotator cuff repair S/P tubal ligation history of pneumonia Plan on Zosyn day 4 and will continue to monitor clinically patient is tolerating solid diet - she can be switched to PO Augmentin to complete another 3-5 days
--- NOTE | 2017-03-30 14:15 | CP.PCM.PN ---
Subjective - Date & Time of Evaluation Date of Evaluation: 03/30/17 Time of Evaluation: 09:50 - Subjective Subjective: Seen and examined at the bedside earlier today, the chart was reviewed. Abdominal pain improving, tolerating oral intake. Patient is having bowel movements but reports them as marbles, denies any bleeding. Objective - Vital Signs/Intake and Output Vital Signs (last 24 hours): Temp Pulse Resp BP Pulse Ox 98.1 F 65 20 140/60 94 L 03/30/17 08:55 03/30/17 10:14 03/30/17 08:55 03/30/17 10:14 03/30/17 08:55 Intake and Output: 03/30/17 03/30/17 06:59 18:59 Intake Total 860 Balance 860 - Medications Medications: Current Medications Acetaminophen (Tylenol 325mg Tab) 650 mg PO Q6H PRN PRN Reason: Fever >100.5 F Last Admin: 03/28/17 22:20 Dose: 650 mg Amlodipine Besylate (Norvasc) 5 mg PO DAILY [facility] Last Admin: 03/30/17 10:14 Dose: 5 mg Diphenhydramine HCl (Benadryl) 50 mg PO Q6 PRN PRN Reason: Rash Last Admin: 03/30/17 13:58 Dose: 50 mg Piperacillin Sod/Tazobactam Sod (Zosyn 3.375 In Ns 100ml) 100 mls @ 200 mls/hr IVPB Q6 ALEK PRN Reason: Protocol Stop: 04/05/17 00:01 Last Admin: 03/30/17 13:57 Dose: 200 mls/hr Morphine Sulfate (Morphine) 2 mg IVP Q4H PRN PRN Reason: Pain, severe (8-10) Ondansetron HCl (Zofran Inj) 4 mg IVP Q6H PRN PRN Reason: Nausea/Vomiting - Labs Labs: 03/28/17 15:30 03/29/17 06:09 - Constitutional Appears: No Acute Distress - Head Exam Head Exam: NORMOCEPHALIC - Eye Exam Eye Exam: Scleral icterus. absent: Normal appearance - ENT Exam ENT Exam: Mucous Membranes Moist - Neck Exam Neck Exam: Normal Inspection - Respiratory Exam Respiratory Exam: Clear to Ausculation Bilateral, NORMAL BREATHING PATTERN. absent: Respiratory Distress - Cardiovascular Exam Cardiovascular Exam: +S1, +S2 - GI/Abdominal Exam GI & Abdominal Exam: Soft, Normal Bowel Sounds. absent: Guarding, Tenderness, Rebound - Extremities Exam Extremities Exam: Normal Capillary Refill. absent: Pedal Edema - Neurological Exam Neurological Exam: Alert, Awake, Oriented x3 Assessment and Plan - Assessment and Plan (Free Text) Assessment: Assessment: Ulcerative colitis, presented with abdominal pain and found to have diverticulitis with microperforation COPD Hypertension Obesity Plan: Start Colace twice a day Continue soft low residual diet Continue antibiotics as per ID Continue to hold Humira, prior to restarting, patient will need to repeat CT scan to ensure inflammation from diverticulitis has improved. Recommend repeating CT scan in 7-[address], discussed with patient Recommend upon discharge home patient to complete a total of 10 days antibiotic therapy Seen and discussed with Dr. Neumann.
== END 2017-03-30 18:30 | disposition home or self-care (01) | DRG 872 ==
LOC: ED 05:28 → ERH 12:14 → 3RSO 13:41
PROVIDERS: ADMIT Internal Medicine Nephrology; ATTEND Internal Medicine Nephrology
DX: A41.9 Sepsis, unspecified organism (principal); K57.20 Diverticulitis of large intestine with perforation and abscess without bleeding; K51.818 Other ulcerative colitis with other complication; I10 Essential (primary) hypertension; J44.9 Chronic obstructive pulmonary disease, unspecified; E66.9 Obesity, unspecified; R73.03 Prediabetes; E87.6 Hypokalemia; F17.210 Nicotine dependence, cigarettes, uncomplicated; L50.9 Urticaria, unspecified; L73.2 Hidradenitis suppurativa; Z87.01 Personal history of pneumonia (recurrent); Z68.33 Body mass index [BMI] 33.0-33.9, adult

== ENCOUNTER 2018-08-06 16:47 | Inpatient (IN) | payer BC ==
[2018-08-06 18:48] VITALS: BMI 36.1
[2018-08-06] MEDS ORDERED: Sodium Chloride 0.9% 1,000 ML IV STA (19:41)
[2018-08-06 20:19] LABS: BASO # 0.02 K/mm3 (0.0-2.0); BASO % 0.2 % (0.0-3.0); EOS # 0.1 (0.0-0.7); HEMOGLOBIN 13.9 g/dL (12.0-16.0); LYMPH # 1.3 (1.2-3.4); LYMPH % 13.3 % (22.0-35.0); MEAN CELL VOLUME 91.1 fl (80.0-105.0); MEAN CORPUSCULAR HEMOGLOBIN 29.4 pg (25.0-35.0); MEAN CORPUSCULAR HGB CONC 32.3 g/dl (31.0-37.0); MEAN PLATELET VOLUME 10.1 fl (7.0-11.0); MONO # 1.2 (0.1-0.6); MONO % 11.8 % (1.0-6.0); RBC 4.72 10^6/uL (3.5-6.1); RED CELL DISTRIBUTION WIDTH 13.7 % (11.5-14.5); WHITE BLOOD COUNT 9.7 10^3/uL (4.5-11.0)
[2018-08-06 20:30] LABS: ALB/GLOB RATIO 1.3 (1.1-1.8); ALBUMIN 4.7 g/dL (3.0-4.8); ALT/SGPT 19 U/L (7-56); AST/SGOT 25 U/L (14-36); BLOOD UREA NITROGEN 13 mg/dL (7-21); GFR NON-AFRICAN AMERICAN > 60
[2018-08-06 20:36] LABS: INFLUENZA A B NEGATIVE FOR FLU A/B (NEGATIVE)
[2018-08-06] MEDS ORDERED: Iohexol 240 (50 ml) ONE (21:47)
--- NOTE | 2018-08-06 22:09 | ED PDOC ---
Arrival/HPI <MercedezPaddy - Last Filed: 08/06/18 22:57> - General Historian: Patient - History of Present Illness Narrative History of Present Illness (Text): 08/06/18 22:06 63-year-old female with a history of ulcerative colitis on Humira presents today with fever cough chills and body aches that started last night. Patient states she has been on Humira for a while now and symptoms not improved. She is complaining of intermittent bloody stools, diarrhea, abdominal pain. Denies any urinary symptoms. No chest pain or shortness of breath. Positive sick contacts at home. Patient states her is sick with a cold at home. Patient states she was seen at the primary care physician's office and sent into the emergency room for evaluation. Time/Duration: Other (last night) <Chetna Caballero - Last Filed: 08/06/18 23:48> - General Chief Complaint: Fever Time Seen by Provider: 08/06/18 19:11 Past Medical History - Provider Review Nursing Documentation Reviewed: Yes - Infectious Disease Hx of Infectious Diseases: None - Tetanus Immunization Tetanus Immunization: Unknown - Cardiac Hx Cardiac Disorders: Yes Hx Hypertension: Yes - Pulmonary Hx Respiratory Disorders: Yes (SMOKED 3 PPD QUIT USING CHANTIX.) Hx Chronic Obstructive Pulmonary Disease (COPD): Yes - Neurological Hx Neurological Disorder: No - HEENT Hx HEENT Disorder: No - Renal Hx Renal Disorder: No - Endocrine/Metabolic Hx Endocrine Disorders: No - Hematological/Oncological Hx Blood Disorders: No - Integumentary Hx Dermatological Disorder: No - Musculoskeletal/Rheumatological Hx Falls: No - Gastrointestinal Hx Gastrointestinal Disorders: Yes (COLITIS 10-5-16) - Genitourinary/Gynecological Hx Genitourinary Disorders: Yes (CYST REMOVED IN BETWEEN BREAST.TUBAL LIGATION) - Psychiatric Hx Psychophysiologic Disorder: Yes (SMOKED 3 PPD.QUIT) Hx Anxiety: No Hx Bipolar Disorder: No Hx Depression: No Hx Emotional Abuse: No Hx Hallucinations: No Hx Panic Disorder: No Hx Post Traumatic Stress Disorder: No Hx Psychosis: No Hx Physical Abuse: No Hx Schizophrenia: No Hx Sexual Abuse: No Hx Substance Use: No - Anesthesia Hx Anesthesia Reactions: No Hx Malignant Hyperthermia: No - Suicidal Assessment Feels Threatened In Home Enviroment: No <Chetna Caballero - Last Filed: 08/06/18 23:48> Family/Social History - Physician Review Nursing Documentation Reviewed: Yes Family/Social History: Unknown Family HX Smoking Status: Former Smoker Hx Alcohol Use: No Hx Substance Use: No <Chetna Caballero - Last Filed: 08/06/18 23:48> Allergies/Home Meds <MercedezPaddy - Last Filed: 08/06/18 22:57> <Chetna Caballero - Last Filed: 08/06/18 23:48> Allergies/Adverse Reactions: Allergies unknown eyedrop antibiotic Allergy (Uncoded 08/06/18 18:49) RASH Home Medications: Home Meds Medication Instructions Recorded Confirmed amLODIPine [Norvasc] 5 mg PO DAILY 04/06/16 08/06/18 Adalimumab [Humira(Cf)] 40 mg INJ MON 08/06/18 08/06/18 Atorvastatin [Lipitor] 10 mg PO DAILY 08/06/18 08/06/18 Mesalamine [Apriso] 1 tab PO DAILY 08/06/18 08/06/18 Review of Systems - Review of Systems Constitutional: Fatigue, Fevers ENT: Sore Throat, Sinus Congestion Respiratory: Cough. absent: SOB Cardiovascular: absent: Chest Pain, Palpitations Gastrointestinal: Abdominal Pain, Diarrhea. absent: Nausea, Vomiting Genitourinary Female: absent: Dysuria, Frequency Musculoskeletal: absent: Arthralgias, Back Pain, Neck Pain Skin: absent: Rash, Pruritis Neurological: absent: Headache, Dizziness Psychiatric: absent: Anxiety, Depression <Chetna Caballero - Last Filed: 08/06/18 23:48> Physical Exam Vital Signs Temp Pulse Resp BP Pulse Ox 08/06/18 19:17 100.2 F H 104 H 20 154/75 H 95 <MercedezPaddy - Last Filed: 08/06/18 22:57> Vital Signs Reviewed: Yes Vital Signs Temp Pulse Resp BP Pulse Ox 08/06/18 19:17 100.2 F H 104 H 20 154/75 H 95 Temperature: Febrile Blood Pressure: Hypertensive Pulse: Tachycardic Respiratory Rate: Normal Appearance: Positive for: Well-Appearing, Non-Toxic, Comfortable Pain Distress: None Mental Status: Positive for: Alert and Oriented X 3 - Systems Exam Head: Present: Atraumatic Ears: Present: Normal, NORMAL TM Mouth: Present: Moist Mucous Membranes. No: Drooling, Trismus Pharnyx: Present: Normal. No: ERYTHEMA, EXUDATE, TONSILS ENLARGED, Peritonsilar Swelling, Uvular Deviation, Muffled/Hoarse Voice Nose (External): Present: Atraumatic Nose (Internal): Present: Normal Inspection Neck: Present: Normal Range of Motion Respiratory/Chest: Present: Clear to Auscultation, Good Air Exchange. No: Respiratory Distress, Accessory Muscle Use, Wheezes, Decreased Breath Sounds, Retracting, Rhonchi, Tachypneic Cardiovascular: Present: Regular Rate and Rhythm, Normal S1, S2. No: Murmurs Abdomen: Present: Tenderness (lower abdominal tenderness), Normal Bowel Sounds. No: Distention, Rebound, Guarding Back: Present: Normal Inspection. No: CVA Tenderness, Midline Tenderness, Paraspinal Tenderness Upper Extremity: Present: Normal ROM Lower Extremity: Present: Normal ROM Neurological: Present: GCS=15, Speech Normal Skin: Present: Warm, Dry, Normal Color. No: Rashes Psychiatric: Present: Alert, Oriented x 3 <Azoia,Chetna T - Last Filed: 08/06/18 23:48> Medical Decision Making - Lab Interpretations Lab Results: Total Bilirubin 0.9 mg/dL (0.2-1.3) 08/06/18 20:14 AST 25 U/L (14-36) 08/06/18 20:14 ALT 19 U/L (7-56) 08/06/18 20:14 Alkaline Phosphatase 109 U/L (38-126) 08/06/18 20:14 Total Protein 8.4 g/dL (5.8-8.3) H 08/06/18 20:14 Albumin 4.7 g/dL (3.0-4.8) 08/06/18 20:14 Globulin 3.7 gm/dL 08/06/18 20:14 Albumin/Globulin Ratio 1.3 (1.1-1.8) 08/06/18 20:14 Urine Color Yellow (YELLOW) 08/06/18 22:18 Urine Appearance Clear (CLEAR) 08/06/18 22:18 Urine pH 6.0 (4.7-8.0) 08/06/18 22:18 Ur Specific [place] >= 1.030 (1.005-1.035) 08/06/18 22:18 Urine Protein 30 mg/dL (<30 mg/dL) H 08/06/18 22:18 Urine Glucose (UA) Negative mg/dL (NEGATIVE) 08/06/18 22:18 Urine Ketones Negative mg/dL (NEGATIVE) 08/06/18 22:18 Urine Blood Negative (NEGATIVE) 08/06/18 22:18 Urine Nitrate Negative (NEGATIVE) 08/06/18 22:18 Urine Bilirubin Negative (NEGATIVE) 08/06/18 22:18 Urine Urobilinogen 0.2 E.U./dL (<1 E.U./dL) 08/06/18 22:18 Ur Leukocyte Esterase Negative [place]/uL (NEGATIVE) 08/06/18 22:18 Urine RBC 0 - 2 /hpf (0-2) 08/06/18 22:18 Urine WBC 0 - 2 /hpf (0-6) 08/06/18 22:18 Ur Epithelial Cells Many /hpf (0-5) H 08/06/18 22:18 Urine Bacteria Few /hpf (NONE) 08/06/18 22:18 - RAD Interpretation Radiology Orders: 08/06/18 19:40 CHEST TWO VIEWS (PA/LAT) [RAD] Stat 08/06/18 21:51 ABD & PELVIS IV CONTRAST ONLY [CT] Stat - Medication Orders Current Medication Orders: Discontinued Medications Acetaminophen (Tylenol 325mg Tab) 975 mg PO STAT STA Stop: 08/06/18 19:42 Last Admin: 08/06/18 20:08 Dose: 975 mg Sodium Chloride (Sodium Chloride 0.9%) 1,000 mls @ 999 mls/hr IV .Q1H1M STA Stop: 08/06/18 20:41 Last Admin: 08/06/18 20:08 Dose: 999 mls/hr eMAR Start Stop Document 08/06/18 20:08 CNR (Rec: 08/06/18 20:08 CNR [id number] Intravenous Solution Start Date 08/06/18 Start Time 20:08 End Date 08/06/18 End time 21:08 Total Infusion Time 60 <Paddy Newsome - Last Filed: 08/06/18 22:57> ED Course and Treatment: 08/06/18 22:09 Patient is nontoxic well appearing with stable vital signs presenting with fever of 102 at home, flu like symptoms, abdominal pain and diarrhea not improvement. CBC : wnl CMP: wnl Urinalysis: wnl cxr; no infiltrate CAT scan:FINDINGS: LUNG BASES: The lung bases appear clear. No pleural effusions are seen. LIVER: There is diffuse fatty infiltration of liver. The liver is enlarged measuring 25 cm anteroposterior. GALLBLADDER AND BILE DUCTS: There is a calcified gallstone in the gallbladder. PANCREAS: Unremarkable. SPLEEN: The spleen is mildly enlarged measuring 13.3 cm anteroposterior. ADRENAL GLANDS: There is a 1 cm nodule in the right adrenal gland on series 2, image 27. This is incompletely characterized. If indicated, this could be further evaluated with adrenal CT or adrenal MRI. KIDNEYS, URETERS, AND BLADDER: No hydronephrosis bilaterally. STOMACH AND BOWEL: There is wall thickening of the rectum and sigmoid compatible with a proctocolitis. There is also fluid within the rectum and distal sigmoid compat ible with diarrhea. The more proximal colon demonstrates constipation. No evidence for small bowel obstruction. APPENDIX: Normal appendix is present retrocecally. PERITONEUM: No free fluid. No free air. LYMPH NODES: There is retroperitoneal lymphadenopathy at the level of the aortic bifurcation, with a left periaortic node measuring 1.2 cm in short axis dimension on series 3, image 111. There is also lymphadenopathy at the gastrohepatic region with a lymph node measuring 1.2 cm in short axis dimension on series 3, image 50. Please correlate clinically and if indicated followup can be obtained. REPRODUCTIVE: Unremarkable as visualized. VASCULATURE: Abdominal aorta is moderately atherosclerotic without aneurysm. BONES: There are mild multilevel degenerative spine changes. MISCELLANEOUS: 2.2 cm cystic lesion at the right adnexa. If indicated, this could be further evaluated with pelvic sonogram. Tiny fat containing periumbilical hernia. IMPRESSION: 1. There is diffuse fatty infiltration of liver. The liver is enlarged measuring 25 cm anteroposterior. 2. There is a calcified gallstone in the gallbladder. 3. The spleen is mildly enlarged measuring 13.3 cm anteroposterior. 4. There is a 1 cm nodule in the right adrenal gland on series 2, image 27. This is incompletely characterized. If indicated, this could be further evaluated with adrenal CT or adrenal MRI. 5. There is wall thickening of the rectum and sigmoid compatible with a proctocolitis. There is also fluid within the rectum and distal sigmoid compatible with diarrhea. The more proximal colon demonstrates constipation. 6. 2.2 cm cystic lesion at the right adnexa. If indicated, this could be further evaluated with pelvic sonogram. 7. There is retroperitoneal lymphadenopathy at the level of the aortic bifurcation, with a left periaortic node measuring 1.2 cm in short axis dimension on series 3, image 111. There is also lymphadenopathy at the gastrohepatic region with a lymph node measuring 1.2 cm in short axis dimension on series 3, image 50. Please correlate clinically and if indicated followup can be obtained. 8. Additional an incidental findings as described, please see comments. Electronically signed on Aug 06, 2018 11:06:34 PM EST by: Natalio Sherwood M.D., KATARINA Certified By [facility] [facility] Fellowship Trained MRI and CT Specialist Patient reassessment: pt resting comfortably. no distress. Discussed all results with patient in depth Blood cultures pending Patient started on Rocephin and Flagyl IV Case discussed with Dr. Vallejo in depth accepts admission for proctocolitis and fever all aspects of this case were discussed the attending of record. Impression:Proctocolitis, fever Admit to [facility] - Lab Interpretations Lab Results: Total Bilirubin 0.9 mg/dL (0.2-1.3) 08/06/18 20:14 AST 25 U/L (14-36) 08/06/18 20:14 ALT 19 U/L (7-56) 08/06/18 20:14 Alkaline Phosphatase 109 U/L (38-126) 08/06/18 20:14 Total Protein 8.4 g/dL (5.8-8.3) H 08/06/18 20:14 Albumin 4.7 g/dL (3.0-4.8) 08/06/18 20:14 Globulin 3.7 gm/dL 08/06/18 20:14 Albumin/Globulin Ratio 1.3 (1.1-1.8) 08/06/18 20:14 - RAD Interpretation Radiology Orders: 08/06/18 19:40 CHEST TWO VIEWS (PA/LAT) [RAD] Stat 08/06/18 21:51 ABD & PELVIS IV CONTRAST ONLY [CT] Stat - Medication Orders Current Medication Orders: Discontinued Medications Acetaminophen (Tylenol 325mg Tab) 975 mg PO STAT STA Stop: 08/06/18 19:42 Last Admin: 08/06/18 20:08 Dose: 975 mg Sodium Chloride (Sodium Chloride 0.9%) 1,000 mls @ 999 mls/hr IV .Q1H1M STA Stop: 08/06/18 20:41 Last Admin: 08/06/18 20:08 Dose: 999 mls/hr eMAR Start Stop Document 08/06/18 20:08 CNR (Rec: 08/06/18 20:08 CNR [id number] Intravenous Solution Start Date 08/06/18 Start Time 20:08 End Date 08/06/18 End time 21:08 Total Infusion Time 60 <Chetna Caballero - Last Filed: 08/06/18 23:48> - PA / COMMUNITY SERVICE OFFICER COORDINATOR / Resident Statement SAUL has reviewed & agrees with the documentation as recorded. SAUL has examined the patient and agrees with the treatment plan. <Paddy Newsome - Last Filed: 08/06/18 22:57> Disposition/Present on Arrival <Paddy Newsome - Last Filed: 08/06/18 22:57> - Present on Arrival Any Indicators Present on Arrival: No History of DVT/PE: No History of Uncontrolled Diabetes: No Urinary Catheter: No History of Decub. Ulcer: No History Surgical Site Infection Following: None - Disposition Have Diagnosis and Disposition been Completed?: Yes Disposition Time: 23:00 Patient Plan: Admission <Chetna Caballero - Last Filed: 08/06/18 23:48> - Disposition Diagnosis: Proctocolitis, Fever Disposition: HOSPITALIZED Condition: FAIR Forms: [employer] (Tristanian)
[2018-08-06 22:26] LABS: URINE BILIRUBIN NEGATIVE (NEGATIVE); URINE BLOOD NEGATIVE (NEGATIVE); URINE GLUCOSE (UA) NEGATIVE (NEGATIVE); URINE LEUKOCYTE ESTERASE NEGATIVE Leu/uL (NEGATIVE); URINE PROTEIN 30 mg/dL (<30 mg/dL); URINE UROBILINOGEN 0.2 E.U./dL (<1 E.U./dL)
[2018-08-06 22:27] LABS: URINE APPEARANCE CLEAR (CLEAR); URINE COLOR YELLOW (YELLOW)
[2018-08-06 22:36] LABS: URINE BACTERIA FEW /hpf; URINE EPITHELIAL CELLS MANY /hpf (0-5); URINE RBC 0 - 2 /hpf (0-2); URINE WBC 0 - 2 /hpf (0-6)
[2018-08-06] MEDS ORDERED: cefTRIAXone 1 gm 1 GM/100 ML BAG IVPB STA (23:40)
[2018-08-06] MEDS ORDERED: metroNIDAZOLE IV 500 mg/100 ml 500 MG/100 ML BAG IVPB STA (23:40)
--- NOTE | 2018-08-07 06:12 | CP.PCM.HP ---
<Eduarda Rodriguez - Last Filed: 08/07/18 21:05> History of Present Illness - History of Present Illness History of Present Illness: 63yo female PMHx Ulcerative Colitis on Humira, HTN, COPD, and hidroadenitis supporativa [place] [facility] to a one-day history of fever, cough, chills and body aches. Patient also complained of intermittent abdominal pain and diarrhea with blood. She reported her was sick at home and when she went to their PMD she was noted to have a fever with temp 103F. As patient is on Humira she was instructed to go to the ER. Overnight patient had no acute events and this AM she reported feeling much better and that her abd pain was minimal. She denied acute complaints of fever, chills, headache, dizziness, chest pain, palpitations, SOB, cough, nausea, vomiting, bowel/bladder complaints, pain/swelling in her legs b/l. PMHx: ulcerative colitis, HTN, COPD, and hidroadenitis supporativa PSurgHx: Rotator cuff repair, tubal ligatation, cyst removal PProcedures: Colonoscopy 04/2016- inflammation from rectum to sigmoid 2/2 pancolitis ulcerative colitis All: NKDA SocHx: former smoker - 3 packs/day for 45 years, denies EtOH and illicit drug use FamHx: unknown Meds: Lipitor, Humira, Mesalamine, Amlodipine Present on Admission - Present on Admission Any Indicators Present on Admission: No Review of Systems - Review of Systems All systems: reviewed and no additional remarkable complaints except Review of Systems: as per HPI Past Patient History - Infectious Disease Hx of Infectious Diseases: None - Tetanus Immunizations Tetanus Immunization: Unknown - Past Social History Smoking Status: Former Smoker - CARDIAC Hx Cardiac Disorders: Yes Hx Angina: Yes Hx Hypercholesterolemia: Yes Hx Hypertension: Yes - PULMONARY Hx Respiratory Disorders: Yes Hx Chronic Obstructive Pulmonary Disease (COPD): Yes - NEUROLOGICAL Hx Neurological Disorder: No - HEENT Hx HEENT Problems: No - RENAL Hx Chronic Kidney Disease: No - ENDOCRINE/METABOLIC Hx Endocrine Disorders: No - HEMATOLOGICAL/ONCOLOGICAL Hx Blood Disorders: No - INTEGUMENTARY Hx Dermatological Problems: Yes Other/Comment: cellulitis, breast cyst. - MUSCULOSKELETAL/RHEUMATOLOGICAL Hx Musculoskeletal Disorders: No Hx Falls: No - GASTROINTESTINAL Hx Gastrointestinal Disorders: Yes Hx Diverticulitis: Yes Other/Comment: Colitis, pancolitis - GENITOURINARY/GYNECOLOGICAL Hx Genitourinary Disorders: No Other/Comment: Tubal ligation - PSYCHIATRIC Hx Psychophysiologic Disorder: No Hx Substance Use: No - SURGICAL HISTORY Hx Surgeries: Yes Other/Comment: Tubaligation - ANESTHESIA Hx Anesthesia Reactions: No Hx Malignant Hyperthermia: No Meds Allergies/Adverse Reactions: Allergies Allergy/AdvReac Type Severity Reaction Status Date / Time unknown eyedrop antibiotic Allergy RASH Uncoded 08/06/18 18:49 Physical Exam - Constitutional Appears: Non-toxic, No Acute Distress - Head Exam Head Exam: ATRAUMATIC, NORMAL INSPECTION, NORMOCEPHALIC - Eye Exam Eye Exam: EOMI, Normal appearance, PERRL. absent: Conjunctival injection, Scleral icterus - ENT Exam ENT Exam: Mucous Membranes Moist - Neck Exam Neck exam: Positive for: Full Rom. Negative for: Lymphadenopathy - Respiratory Exam Respiratory Exam: Clear to Auscultation Bilateral, NORMAL BREATHING PATTERN. absent: Accessory Muscle Use, Rales, Rhonchi, Wheezes - Cardiovascular Exam Cardiovascular Exam: RRR, +S1, +S2 - GI/Abdominal Exam GI & Abdominal Exam: Normal Bowel Sounds, Soft, Tenderness (minimal- lower abdomen to palpation). absent: Distended, Firm, Guarding - Extremities Exam Extremities exam: Positive for: normal inspection, pedal pulses present. Negati ve for: pedal edema - Back Exam Back exam: NORMAL INSPECTION. absent: tenderness - Neurological Exam Neurological exam: Alert, CN II-XII Intact, Normal Gait, Oriented x3 - Psychiatric Exam Psychiatric exam: Normal Affect, Normal Mood - Skin Skin Exam: Dry, Intact, Normal Color, Warm Results - Vital Signs Recent Vital Signs: Last Vital Signs Temp 98.8 F 08/06/18 23:25 Pulse 72 08/07/18 03:08 Resp 18 08/07/18 03:31 BP 135/82 08/07/18 03:08 Pulse Ox 97 08/07/18 03:08 - Labs Result Diagrams: 08/07/18 08:25 08/07/18 08:25 Labs: Laboratory Results - last 24 hr 08/06/18 08/06/18 08/06/18 20:14 20:14 20:14 WBC 9.7 RBC 4.72 Hgb 13.9 Hct 43.0 MCV 91.1 MCH 29.4 MCHC 32.3 RDW 13.7 Plt Count 261 MPV 10.1 Neut % (Auto) 73.7 H Lymph % (Auto) 13.3 L [place] % (Auto) 11.8 H Eos % (Auto) 1.0 L Baso % (Auto) 0.2 Lymph # (Auto) 1.3 [place] # (Auto) 1.2 H Eos # (Auto) 0.1 Baso # (Auto) 0.02 Absolute Neuts (auto) 7.17 H Sodium 137 Potassium 4.1 Chloride 95 L Carbon Dioxide 31 Anion Gap 15 BUN 13 Creatinine 0.9 Est GFR ( Amer) > 60 Est GFR (Non-Af Amer) > 60 Random Glucose 118 H Calcium 10.0 Total Bilirubin 0.9 AST 25 ALT 19 Alkaline Phosphatase 109 Total Protein 8.4 H Albumin 4.7 Globulin 3.7 Albumin/Globulin Ratio 1.3 Urine Color Urine Appearance Urine pH Ur Specific [place] Urine Protein Urine Glucose (UA) Urine Ketones Urine Blood Urine Nitrate Urine Bilirubin Urine Urobilinogen Ur Leukocyte Esterase Urine RBC Urine WBC Ur Epithelial Cells Urine Bacteria Influenza Typ A,B (EIA) Negative for flu a/b Grp A Beta Strep Ag Negative 08/06/18 22:18 WBC RBC Hgb Hct MCV MCH MCHC RDW Plt Count MPV Neut % (Auto) Lymph % (Auto) [place] % (Auto) Eos % (Auto) Baso % (Auto) Lymph # (Auto) [place] # (Auto) Eos # (Auto) Baso # (Auto) Absolute Neuts (auto) Sodium Potassium Chloride Carbon Dioxide Anion Gap BUN Creatinine Est GFR ( Amer) Est GFR (Non-Af Amer) Random Glucose Calcium Total Bilirubin AST ALT Alkaline Phosphatase Total Protein Albumin Globulin Albumin/Globulin Ratio Urine Color Yellow Urine Appearance Clear Urine pH 6.0 Ur Specific [place] >= 1.030 Urine Protein 30 H Urine Glucose (UA) Negative Urine Ketones Negative Urine Blood Negative Urine Nitrate Negative Urine Bilirubin Negative Urine Urobilinogen 0.2 Ur Leukocyte Esterase Negative Urine RBC 0 - 2 Urine WBC 0 - 2 Ur Epithelial Cells Many H Urine Bacteria Few Influenza Typ A,B (EIA) Grp A Beta Strep Ag Assessment & Plan - Assessment and Plan (Free Text) Assessment: -Proctocolitis -Flu-like symptoms -Ulcerative Colitis -HTN -HLD -COPD -Hidroadenitis Supporativa Plan: Patient's vitals, blood work, and imaging noted. CT Abd/pelvis consistent with proctocolitis. GI and ID on board. Patient on IV Zosyn. As patient showed flu- like symptoms and has sick contact, started on Tamiflu as per ID. CXR unremarkable; further septic work up pending. Tylenol on board for fever. Patient's Humira on hold at this time. Maintain normotension and continue home Norvasc. Patient's lipitor also continued for HLD. Appreciate GI and ID reccs. Will continue to monitor closely at this time. Patient tolerating HHD. Discussed with Dr. Genevieve Rodriguez PGY3 <Vipul Vallejo S - Last Filed: 08/08/18 18:50> Results - Vital Signs Recent Vital Signs: Last Vital Signs Temp 98.9 F 08/08/18 14:00 Pulse 71 08/08/18 14:00 Resp 20 08/08/18 14:00 BP 136/80 08/08/18 14:00 Pulse Ox 95 08/08/18 14:00 - Labs Result Diagrams: 08/08/18 07:20 08/08/18 07:20 Labs: Laboratory Results - last 24 hr 08/08/18 08/08/18 07:20 07:20 WBC 5.6 RBC 4.38 Hgb 12.6 Hct 40.1 MCV 91.6 MCH 28.8 MCHC 31.4 RDW 14.1 Plt Count 226 MPV 9.9 Neut % (Auto) 63.5 Lymph % (Auto) 22.0 [place] % (Auto) 12.1 H Eos % (Auto) 2.0 Baso % (Auto) 0.4 Lymph # (Auto) 1.2 [place] # (Auto) 0.7 H Eos # (Auto) 0.1 Baso # (Auto) 0.02 Absolute Neuts (auto) 3.53 Sodium 140 Potassium 3.9 Chloride 101 Carbon Dioxide 31 Anion Gap 12 BUN 10 Creatinine 0.8 Est GFR ( Amer) > 60 Est GFR (Non-Af Amer) > 60 Random Glucose 128 H Calcium 9.1 Total Bilirubin 1.0 AST 30 ALT 21 Alkaline Phosphatase 89 Total Protein 7.6 Albumin 4.3 Globulin 3.3 Albumin/Globulin Ratio 1.3 Assessment & Plan - Assessment and Plan (Free Text) Plan: Pt seen and examined by me. I have reviewed the note of the director biomedical engineering and I agree with it. I have discussed the assessment and plan with the resident. I have reviewed the medications and the last labs. Pt with Colitis and has hx of ulcerative colitis. HTN is controlled. She has been on Humira as outpt. Dyslipidemia treated with statin. Pt has been started on Zosyn. She is on Norvasc for HTN. Will need GI and ID evaluation.
--- NOTE | 2018-08-07 08:24 | RAD ---
Date of service: 08/06/2018 HISTORY: cough/fever COMPARISON: 04/06/2016 TECHNIQUE: Chest PA and lateral FINDINGS: LUNGS: No active pulmonary disease. PLEURA: No significant pleural effusion identified. No pneumothorax apparent. CARDIOVASCULAR: No aortic atherosclerotic calcification present. Normal cardiac size. No pulmonary vascular congestion. OSSEOUS STRUCTURES: No significant abnormalities. VISUALIZED UPPER ABDOMEN: Normal. OTHER FINDINGS: The report concurs with the preliminary [facility] report IMPRESSION: No active disease.
[2018-08-07 08:36] LABS: BASO # 0.01 K/mm3 (0.0-2.0); BASO % 0.2 % (0.0-3.0); EOS # 0.1 (0.0-0.7); HEMOGLOBIN 12.5 g/dL (12.0-16.0); LYMPH % 16.8 % (22.0-35.0); MEAN CELL VOLUME 91.9 fl (80.0-105.0); MEAN CORPUSCULAR HGB CONC 31.6 g/dl (31.0-37.0); MEAN PLATELET VOLUME 10.1 fl (7.0-11.0); MONO # 0.6 (0.1-0.6); MONO % 10.4 % (1.0-6.0); RBC 4.31 10^6/uL (3.5-6.1); RED CELL DISTRIBUTION WIDTH 13.9 % (11.5-14.5); WHITE BLOOD COUNT 6.1 10^3/uL (4.5-11.0)
[2018-08-07 08:50] LABS: ALB/GLOB RATIO 1.3 (1.1-1.8); ALBUMIN 4.1 g/dL (3.0-4.8); ALT/SGPT 17 U/L (7-56); AST/SGOT 25 U/L (14-36); BLOOD UREA NITROGEN 9 mg/dL (7-21); CALCIUM 9.1 mg/dL (8.4-10.5); GFR NON-AFRICAN AMERICAN > 60
[2018-08-07] MEDS: Piperacillin/Tazobact 3.375 gm 100 ML IVPB SCH ×3 (10:45→18:30)
--- NOTE | 2018-08-07 11:54 | CT ---
Date of service: 08/06/2018 PROCEDURE: CT Abdomen and Pelvis with contrast HISTORY: abd pain COMPARISON: 04/18/2017 TECHNIQUE: Contrast dose: 150 cc of Omni 350 Radiation dose: Total exam DLP = 960.13 mGy-cm. This CT exam was performed using one or more of the following dose reduction techniques: Automated exposure control, adjustment of the mA and/or kV according to patient size, and/or use of iterative reconstruction technique. FINDINGS: LOWER THORAX: Unremarkable. LIVER: Unremarkable. No gross lesion or ductal dilatation. Fatty infiltration of the liver GALLBLADDER AND BILE DUCTS: Large calcified gallstone PANCREAS: Unremarkable. No gross lesion or ductal dilatation. SPLEEN: Unremarkable. ADRENALS: Unremarkable. No mass. KIDNEYS AND URETERS: Unremarkable. No hydronephrosis. No solid mass. VASCULATURE: Unremarkable. No aortic aneurysm. Aortic calcification BOWEL: There is mural thickening in the rectosigmoid consistent with proctocolitis. There is also fluid in this portion of the bowel. APPENDIX: Normal appendix. PERITONEUM: Unremarkable. No free fluid. No free air. LYMPH NODES: Mildly enlarged lymph nodes are seen adjacent to the lesser curvature of the stomach. BLADDER: Unremarkable. REPRODUCTIVE: 2 cm right adnexal cyst BONES: No acute fracture. OTHER FINDINGS: The report concurs with the preliminary [facility] report IMPRESSION: There is mural thickening in the rectosigmoid consistent with proctocolitis. There is also fluid in this portion of the bowel.
--- NOTE | 2018-08-07 12:52 | CP.PCM.CON ---
<Russ Johnson - Last Filed: 08/07/18 12:43> History of Present Illness - History of Present Illness History of Present Illness: GI Consult Note for Dr. Neumann Reason for Consultation: Colitis Patient is a 63F with PMH of ulcerative colitis, HTN, COPD, and hidroadenitis supporativa presents to [facility] due to a one-day history of fever, cough, chills and body aches. Patient also complains of intermittent abdominal pain and diarrhea with blood. Patient states that her is sick at home. In the ED, CT of the abdomen and pelvis was obtained, which showed rectosignmoid mural thickening consistent with proctocolitis and retroperitoneal lymphadenopathy. Patient denies CP, SOB, n/v, ESCALANTE, dizziness, melena, dysuria, hematuria, or fatigue. Colonoscopy (04/2016): inflammation from rectum to sigmoid 2/2 pancolitis ulcerative colitis PMH: ulcerative colitis, HTN, COPD, and hidroadenitis supporativa PSH: Rotator cuff repair, tubal ligatation, cyst removal All: NKDA SH: former smoker - 3 packs/day for 45 years, denies EtOH and illicit drug use FHx: unknown Medications: Lipitor, Humira, Mesalamine, Amlodipine Review of Systems - Review of Systems All systems: reviewed and no additional remarkable complaints except (12 point ROS reviewed and is negative other than what is stated in HPI.) Past Patient History - Infectious Disease Hx of Infectious Diseases: None - Tetanus Immunizations Tetanus Immunization: Unknown - Past Social History Smoking Status: Former Smoker - CARDIAC Hx Cardiac Disorders: Yes Hx Angina: Yes Hx Hypercholesterolemia: Yes Hx Hypertension: Yes - PULMONARY Hx Respiratory Disorders: Yes Hx Chronic Obstructive Pulmonary Disease (COPD): Yes - NEUROLOGICAL Hx Neurological Disorder: No - HEENT Hx HEENT Problems: No - RENAL Hx Chronic Kidney Disease: No - ENDOCRINE/METABOLIC Hx Endocrine Disorders: No - HEMATOLOGICAL/ONCOLOGICAL Hx Blood Disorders: No - INTEGUMENTARY Hx Dermatological Problems: Yes Other/Comment: cellulitis, breast cyst. - MUSCULOSKELETAL/RHEUMATOLOGICAL Hx Musculoskeletal Disorders: No Hx Falls: No - GASTROINTESTINAL Hx Gastrointestinal Disorders: Yes Hx Diverticulitis: Yes Other/Comment: Colitis, pancolitis - GENITOURINARY/GYNECOLOGICAL Hx Genitourinary Disorders: No Other/Comment: Tubal ligation - PSYCHIATRIC Hx Psychophysiologic Disorder: No Hx Substance Use: No - SURGICAL HISTORY Hx Surgeries: Yes Other/Comment: Tubaligation - ANESTHESIA Hx Anesthesia Reactions: No Hx Malignant Hyperthermia: No Meds Allergies/Adverse Reactions: Allergies Allergy/AdvReac Type Severity Reaction Status Date / Time unknown eyedrop antibiotic Allergy RASH Uncoded 08/06/18 18:49 - Medications Medications: Current Medications Acetaminophen (Tylenol 325mg Tab) 650 mg PO Q6H PRN PRN Reason: Fever >100.4 F Amlodipine Besylate (Norvasc) 5 mg PO DAILY [facility] Last Admin: 08/07/18 09:40 Dose: 5 mg Atorvastatin Calcium (Lipitor) 10 mg PO DAILY [facility] Last Admin: 08/07/18 09:41 Dose: 10 mg Piperacillin Sod/Tazobactam Sod (Zosyn 3.375 In Ns 100ml) 100 mls @ 25 mls/hr IVPB Q8 [facility]; Protocol Stop: 08/14/18 06:46 Last Admin: 08/07/18 10:45 Dose: 25 mls/hr Oseltamivir Phosphate (Tamiflu Cap) 75 mg PO BID [facility]; Protocol Stop: 08/12/18 10:12 Physical Exam - Constitutional Appears: No Acute Distress - Head Exam Head Exam: NORMAL INSPECTION - Eye Exam Eye Exam: Normal appearance - ENT Exam ENT Exam: Mucous Membranes Moist, Normal Exam - Neck Exam Neck exam: Positive for: Normal Inspection - Respiratory Exam Respiratory Exam: Clear to Auscultation Bilateral. absent: Rales, Rhonchi, Wheezes - Cardiovascular Exam Cardiovascular Exam: RRR, +S1, +S2. absent: Diastolic murmur, Gallop, Rubs, Systolic Murmur - GI/Abdominal Exam GI & Abdominal Exam: Soft, Tenderness (lower). absent: Distended, Guarding, Rebound - Extremities Exam Extremities exam: Positive for: normal inspection - Back Exam Back exam: NORMAL INSPECTION - Neurological Exam Neurological exam: Alert, Oriented x3 - Skin Skin Exam: Normal Color, Warm Results - Vital Signs Recent Vital Signs: Last Vital Signs Temp 98.6 F 08/07/18 06:00 Pulse 80 08/07/18 09:40 Resp 18 08/07/18 06:00 BP 127/54 L 08/07/18 09:40 Pulse Ox 97 08/07/18 06:00 - Labs Result Diagrams: 08/07/18 08:25 08/07/18 08:25 Labs: Laboratory Results - last 24 hr 08/06/18 08/06/18 08/06/18 20:14 20:14 20:14 WBC 9.7 RBC 4.72 Hgb 13.9 Hct 43.0 MCV 91.1 MCH 29.4 MCHC 32.3 RDW 13.7 Plt Count 261 MPV 10.1 Neut % (Auto) 73.7 H Lymph % (Auto) 13.3 L [place] % (Auto) 11.8 H Eos % (Auto) 1.0 L Baso % (Auto) 0.2 Lymph # (Auto) 1.3 [place] # (Auto) 1.2 H Eos # (Auto) 0.1 Baso # (Auto) 0.02 Absolute Neuts (auto) 7.17 H Sodium 137 Potassium 4.1 Chloride 95 L Carbon Dioxide 31 Anion Gap 15 BUN 13 Creatinine 0.9 Est GFR ( Amer) > 60 Est GFR (Non-Af Amer) > 60 Random Glucose 118 H Calcium 10.0 Phosphorus Magnesium Total Bilirubin 0.9 AST 25 ALT 19 Alkaline Phosphatase 109 Total Protein 8.4 H Albumin 4.7 Globulin 3.7 Albumin/Globulin Ratio 1.3 Urine Color Urine Appearance Urine pH Ur Specific [place] Urine Protein Urine Glucose (UA) Urine Ketones Urine Blood Urine Nitrate Urine Bilirubin Urine Urobilinogen Ur Leukocyte Esterase Urine RBC Urine WBC Ur Epithelial Cells Urine Bacteria Influenza Typ A,B (EIA) Negative for flu a/b Grp A Beta Strep Ag Negative 08/06/18 08/07/18 08/07/18 22:18 08:25 08:25 WBC 6.1 D RBC 4.31 Hgb 12.5 Hct 39.6 MCV 91.9 MCH 29.0 MCHC 31.6 RDW 13.9 Plt Count 232 MPV 10.1 Neut % (Auto) 71.6 H Lymph % (Auto) 16.8 L [place] % (Auto) 10.4 H Eos % (Auto) 1.0 L Baso % (Auto) 0.2 Lymph # (Auto) 1.0 L [place] # (Auto) 0.6 Eos # (Auto) 0.1 Baso # (Auto) 0.01 Absolute Neuts (auto) 4.40 Sodium 140 Potassium 3.8 Chloride 100 Carbon Dioxide 33 Anion Gap 10 BUN 9 Creatinine 0.8 Est GFR ( Amer) > 60 Est GFR (Non-Af Amer) > 60 Random Glucose 127 H Calcium 9.1 Phosphorus 3.8 Magnesium 2.0 Total Bilirubin 0.7 AST 25 ALT 17 Alkaline Phosphatase 92 Total Protein 7.4 Albumin 4.1 Globulin 3.3 Albumin/Globulin Ratio 1.3 Urine Color Yellow Urine Appearance Clear Urine pH 6.0 Ur Specific [place] >= 1.030 Urine Protein 30 H Urine Glucose (UA) Negative Urine Ketones Negative Urine Blood Negative Urine Nitrate Negative Urine Bilirubin Negative Urine Urobilinogen 0.2 Ur Leukocyte Esterase Negative Urine RBC 0 - 2 Urine WBC 0 - 2 Ur Epithelial Cells Many H Urine Bacteria Few Influenza Typ A,B (EIA) Grp A Beta Strep Ag Assessment & Plan - Assessment and Plan (Free Text) Assessment: 63 yo F with PMH of ulcerative colitis, HTN, COPD, and hidroadenitis supporativa presents to [facility] with fever, chills, diarrhea and abdominal pain. Patient found to have proctocolits on CT of the abdomen/pelvis. 1. Abdominal Pain 2/2 Proctocolitis 2. H/o Ulcerative Colitis Plan: - Will consider C. diff stool testing if diarrhea persists - Hold Humira - IV abx per ID Patient discussed in detail with Dr. Neumann. Dashawn Johnson, DO PGY2 <Wesley Neumann V - Last Filed: 08/07/18 23:57> Meds - Medications Medications: Current Medications Acetaminophen (Tylenol 325mg Tab) 650 mg PO Q6H PRN PRN Reason: Fever >100.4 F Amlodipine Besylate (Norvasc) 5 mg PO DAILY [facility] Last Admin: 08/07/18 09:40 Dose: 5 mg Atorvastatin Calcium (Lipitor) 10 mg PO DAILY [facility] Last Admin: 08/07/18 09:41 Dose: 10 mg Piperacillin Sod/Tazobactam Sod (Zosyn 3.375 In Ns 100ml) 100 mls @ 25 mls/hr IVPB Q8 [facility]; Protocol Stop: 08/14/18 06:46 Last Admin: 08/07/18 18:30 Dose: 25 mls/hr Oseltamivir Phosphate (Tamiflu Cap) 75 mg PO BID [facility]; Protocol Stop: 08/12/18 10:12 Last Admin: 08/07/18 18:00 Dose: 75 mg Results - Vital Signs Recent Vital Signs: Last Vital Signs Temp 98.6 F 08/07/18 06:00 Pulse 80 08/07/18 09:40 Resp 18 08/07/18 06:00 BP 127/54 L 08/07/18 09:40 Pulse Ox 97 08/07/18 06:00 - Labs Result Diagrams: 08/07/18 08:25 08/07/18 08:25 Labs: Laboratory Results - last 24 hr 08/07/18 08/07/18 08:25 08:25 WBC 6.1 D RBC 4.31 Hgb 12.5 Hct 39.6 MCV 91.9 MCH 29.0 MCHC 31.6 RDW 13.9 Plt Count 232 MPV 10.1 Neut % (Auto) 71.6 H Lymph % (Auto) 16.8 L [place] % (Auto) 10.4 H Eos % (Auto) 1.0 L Baso % (Auto) 0.2 Lymph # (Auto) 1.0 L [place] # (Auto) 0.6 Eos # (Auto) 0.1 Baso # (Auto) 0.01 Absolute Neuts (auto) 4.40 Sodium 140 Potassium 3.8 Chloride 100 Carbon Dioxide 33 Anion Gap 10 BUN 9 Creatinine 0.8 Est GFR ( Amer) > 60 Est GFR (Non-Af Amer) > 60 Random Glucose 127 H Calcium 9.1 Phosphorus 3.8 Magnesium 2.0 Total Bilirubin 0.7 AST 25 ALT 17 Alkaline Phosphatase 92 Total Protein 7.4 Albumin 4.1 Globulin 3.3 Albumin/Globulin Ratio 1.3 Attending/Attestation - Attestation I have personally seen and examined this patient.: Yes I have fully participated in the care of the patient.: Yes I have reviewed all pertinent clinical information: Yes Notes (Text): This is an addendum to GI consult report dictated by the S[employer]er. The patient was seen and evaluated earlier. Medical records, lab studies, imagings were reviewed. Last 24 hours events reviewed. Agreed with the above treatment plan as outlined in Sack [employer]er 's notes with the addition of the following 08/07/18 23:57
--- NOTE | 2018-08-07 15:24 | CP.PCM.CON ---
<Lio Clemente - Last Filed: 08/07/18 15:21> History of Present Illness - History of Present Illness History of Present Illness: Infectious disease consult note: 63-year-old female with past medical history of ulcerative colitis on Humira, hypertension, COPD, and hydroadenitis presents to the ED for 1 day history of cough, fever, chills. Patient states that he has SHE has only felt this for 1 day. She went to her doctor yesterday and had a fever of 103 in the office and since she is on Humira she was told to come to the ED. Patient currently denies any further episodes of fever or chills. Denies any coughing at this time. Patient does admit to having a sick contact as her is sick with the flu. 12 point ROS performed and negative other than stated above PMH: as above PSH: Rotator cuff repair, tubal ligatation All: NKA SH: former smoker - (3 packs/day for 45 years), denies EtOH and illicit drug use FHx: unknown Review of Systems - Review of Systems All systems: reviewed and no additional remarkable complaints except Past Patient History - Infectious Disease Hx of Infectious Diseases: None - Tetanus Immunizations Tetanus Immunization: Unknown - Past Social History Smoking Status: Former Smoker - CARDIAC Hx Cardiac Disorders: Yes Hx Angina: Yes Hx Hypercholesterolemia: Yes Hx Hypertension: Yes - PULMONARY Hx Respiratory Disorders: Yes Hx Chronic Obstructive Pulmonary Disease (COPD): Yes - NEUROLOGICAL Hx Neurological Disorder: No - HEENT Hx HEENT Problems: No - RENAL Hx Chronic Kidney Disease: No - ENDOCRINE/METABOLIC Hx Endocrine Disorders: No - HEMATOLOGICAL/ONCOLOGICAL Hx Blood Disorders: No - INTEGUMENTARY Hx Dermatological Problems: Yes Other/Comment: cellulitis, breast cyst. - MUSCULOSKELETAL/RHEUMATOLOGICAL Hx Musculoskeletal Disorders: No Hx Falls: No - GASTROINTESTINAL Hx Gastrointestinal Disorders: Yes Hx Diverticulitis: Yes Other/Comment: Colitis, pancolitis - GENITOURINARY/GYNECOLOGICAL Hx Genitourinary Disorders: No Other/Comment: Tubal ligation - PSYCHIATRIC Hx Psychophysiologic Disorder: No Hx Substance Use: No - SURGICAL HISTORY Hx Surgeries: Yes Other/Comment: Tubaligation - ANESTHESIA Hx Anesthesia Reactions: No Hx Malignant Hyperthermia: No Meds Allergies/Adverse Reactions: Allergies Allergy/AdvReac Type Severity Reaction Status Date / Time unknown eyedrop antibiotic Allergy RASH Uncoded 08/06/18 18:49 - Medications Medications: Current Medications Acetaminophen (Tylenol 325mg Tab) 650 mg PO Q6H PRN PRN Reason: Fever >100.4 F Amlodipine Besylate (Norvasc) 5 mg PO DAILY [facility] Last Admin: 08/07/18 09:40 Dose: 5 mg Atorvastatin Calcium (Lipitor) 10 mg PO DAILY [facility] Last Admin: 08/07/18 09:41 Dose: 10 mg Piperacillin Sod/Tazobactam Sod (Zosyn 3.375 In Ns 100ml) 100 mls @ 25 mls/hr IVPB Q8 [facility]; Protocol Stop: 08/14/18 06:46 Last Admin: 08/07/18 10:45 Dose: 25 mls/hr Oseltamivir Phosphate (Tamiflu Cap) 75 mg PO BID [facility]; Protocol Stop: 08/12/18 10:12 Physical Exam - Constitutional Appears: No Acute Distress - Head Exam Head Exam: ATRAUMATIC, NORMOCEPHALIC - Eye Exam Eye Exam: EOMI - ENT Exam ENT Exam: Mucous Membranes Moist - Respiratory Exam Respiratory Exam: Clear to Auscultation Bilateral. absent: Wheezes - Cardiovascular Exam Cardiovascular Exam: REGULAR RHYTHM, +S1, +S2 - GI/Abdominal Exam GI & Abdominal Exam: Normal Bowel Sounds, Soft. absent: Tenderness - Extremities Exam Extremities exam: Negative for: calf tenderness, pedal edema - Neurological Exam Neurological exam: Alert, CN II-XII Intact, Oriented x3 - Psychiatric Exam Psychiatric exam: Normal Mood - Skin Skin Exam: Dry, Warm Results - Vital Signs Recent Vital Signs: Last Vital Signs Temp 98.6 F 08/07/18 06:00 Pulse 80 08/07/18 09:40 Resp 18 08/07/18 06:00 BP 127/54 L 08/07/18 09:40 Pulse Ox 97 08/07/18 06:00 - Labs Result Diagrams: 08/07/18 08:25 08/07/18 08:25 Labs: Laboratory Results - last 24 hr 08/06/18 08/06/18 08/06/18 20:14 20:14 20:14 WBC 9.7 RBC 4.72 Hgb 13.9 Hct 43.0 MCV 91.1 MCH 29.4 MCHC 32.3 RDW 13.7 Plt Count 261 MPV 10.1 Neut % (Auto) 73.7 H Lymph % (Auto) 13.3 L [place] % (Auto) 11.8 H Eos % (Auto) 1.0 L Baso % (Auto) 0.2 Lymph # (Auto) 1.3 [place] # (Auto) 1.2 H Eos # (Auto) 0.1 Baso # (Auto) 0.02 Absolute Neuts (auto) 7.17 H Sodium 137 Potassium 4.1 Chloride 95 L Carbon Dioxide 31 Anion Gap 15 BUN 13 Creatinine 0.9 Est GFR ( Amer) > 60 Est GFR (Non-Af Amer) > 60 Random Glucose 118 H Calcium 10.0 Phosphorus Magnesium Total Bilirubin 0.9 AST 25 ALT 19 Alkaline Phosphatase 109 Total Protein 8.4 H Albumin 4.7 Globulin 3.7 Albumin/Globulin Ratio 1.3 Urine Color Urine Appearance Urine pH Ur Specific Kaufman Urine Protein Urine Glucose (UA) Urine Ketones Urine Blood Urine Nitrate Urine Bilirubin Urine Urobilinogen Ur Leukocyte Esterase Urine RBC Urine WBC Ur Epithelial Cells Urine Bacteria Influenza Typ A,B (EIA) Negative for flu a/b Grp A Beta Strep Ag Negative 08/06/18 08/07/18 08/07/18 22:18 08:25 08:25 WBC 6.1 D RBC 4.31 Hgb 12.5 Hct 39.6 MCV 91.9 MCH 29.0 MCHC 31.6 RDW 13.9 Plt Count 232 MPV 10.1 Neut % (Auto) 71.6 H Lymph % (Auto) 16.8 L [place] % (Auto) 10.4 H Eos % (Auto) 1.0 L Baso % (Auto) 0.2 Lymph # (Auto) 1.0 L [place] # (Auto) 0.6 Eos # (Auto) 0.1 Baso # (Auto) 0.01 Absolute Neuts (auto) 4.40 Sodium 140 Potassium 3.8 Chloride 100 Carbon Dioxide 33 Anion Gap 10 BUN 9 Creatinine 0.8 Est GFR ( Amer) > 60 Est GFR (Non-Af Amer) > 60 Random Glucose 127 H Calcium 9.1 Phosphorus 3.8 Magnesium 2.0 Total Bilirubin 0.7 AST 25 ALT 17 Alkaline Phosphatase 92 Total Protein 7.4 Albumin 4.1 Globulin 3.3 Albumin/Globulin Ratio 1.3 Urine Color Yellow Urine Appearance Clear Urine pH 6.0 Ur Specific Kaufman >= 1.030 Urine Protein 30 H Urine Glucose (UA) Negative Urine Ketones Negative Urine Blood Negative Urine Nitrate Negative Urine Bilirubin Negative Urine Urobilinogen 0.2 Ur Leukocyte Esterase Negative Urine RBC 0 - 2 Urine WBC 0 - 2 Ur Epithelial Cells Many H Urine Bacteria Few Influenza Typ A,B (EIA) Grp A Beta Strep Ag Assessment & Plan - Assessment and Plan (Free Text) Assessment: 63-year-old female with past medical history of ulcerative colitis on Humira, hypertension, COPD, and hydroadenitis presents to the ED for 1 day history of cough, fever, chills. R/o influenza Started on Tamiflu (Possible drug interaction was checked between Tamiflu and Humira, no interaction found) CT of the abdomen and pelvis - consistent with proctocolitis therefore continue with Zosyn Chest x-ray was negative Follow-up further septic workup Follow-up GI recs Continue to monitor for any changes Case and plan was reviewed and discussed with Dr. Emmanuel. <Severiano Emmanuel - Last Filed: 08/07/18 15:49> Meds - Medications Medications: Current Medications Acetaminophen (Tylenol 325mg Tab) 650 mg PO Q6H PRN PRN Reason: Fever >100.4 F Amlodipine Besylate (Norvasc) 5 mg PO DAILY [facility] Last Admin: 08/07/18 09:40 Dose: 5 mg Atorvastatin Calcium (Lipitor) 10 mg PO DAILY [facility] Last Admin: 08/07/18 09:41 Dose: 10 mg Piperacillin Sod/Tazobactam Sod (Zosyn 3.375 In Ns 100ml) 100 mls @ 25 mls/hr IVPB Q8 [facility]; Protocol Stop: 08/14/18 06:46 Last Admin: 08/07/18 10:45 Dose: 25 mls/hr Oseltamivir Phosphate (Tamiflu Cap) 75 mg PO BID [facility]; Protocol Stop: 08/12/18 10:12 Results - Vital Signs Recent Vital Signs: Last Vital Signs Temp 98.6 F 08/07/18 06:00 Pulse 80 08/07/18 09:40 Resp 18 08/07/18 06:00 BP 127/54 L 08/07/18 09:40 Pulse Ox 97 08/07/18 06:00 - Labs Result Diagrams: 08/07/18 08:25 08/07/18 08:25 Labs: Laboratory Results - last 24 hr 08/06/18 08/06/18 08/06/18 20:14 20:14 20:14 WBC 9.7 RBC 4.72 Hgb 13.9 Hct 43.0 MCV 91.1 MCH 29.4 MCHC 32.3 RDW 13.7 Plt Count 261 MPV 10.1 Neut % (Auto) 73.7 H Lymph % (Auto) 13.3 L [place] % (Auto) 11.8 H Eos % (Auto) 1.0 L Baso % (Auto) 0.2 Lymph # (Auto) 1.3 [place] # (Auto) 1.2 H Eos # (Auto) 0.1 Baso # (Auto) 0.02 Absolute Neuts (auto) 7.17 H Sodium 137 Potassium 4.1 Chloride 95 L Carbon Dioxide 31 Anion Gap 15 BUN 13 Creatinine 0.9 Est GFR ( Amer) > 60 Est GFR (Non-Af Amer) > 60 Random Glucose 118 H Calcium 10.0 Phosphorus Magnesium Total Bilirubin 0.9 AST 25 ALT 19 Alkaline Phosphatase 109 Total Protein 8.4 H Albumin 4.7 Globulin 3.7 Albumin/Globulin Ratio 1.3 Urine Color Urine Appearance Urine pH Ur Specific Kaufman Urine Protein Urine Glucose (UA) Urine Ketones Urine Blood Urine Nitrate Urine Bilirubin Urine Urobilinogen Ur Leukocyte Esterase Urine RBC Urine WBC Ur Epithelial Cells Urine Bacteria Influenza Typ A,B (EIA) Negative for flu a/b Grp A Beta Strep Ag Negative 08/06/18 08/07/18 08/07/18 22:18 08:25 08:25 WBC 6.1 D RBC 4.31 Hgb 12.5 Hct 39.6 MCV 91.9 MCH 29.0 MCHC 31.6 RDW 13.9 Plt Count 232 MPV 10.1 Neut % (Auto) 71.6 H Lymph % (Auto) 16.8 L [place] % (Auto) 10.4 H Eos % (Auto) 1.0 L Baso % (Auto) 0.2 Lymph # (Auto) 1.0 L [place] # (Auto) 0.6 Eos # (Auto) 0.1 Baso # (Auto) 0.01 Absolute Neuts (auto) 4.40 Sodium 140 Potassium 3.8 Chloride 100 Carbon Dioxide 33 Anion Gap 10 BUN 9 Creatinine 0.8 Est GFR ( Amer) > 60 Est GFR (Non-Af Amer) > 60 Random Glucose 127 H Calcium 9.1 Phosphorus 3.8 Magnesium 2.0 Total Bilirubin 0.7 AST 25 ALT 17 Alkaline Phosphatase 92 Total Protein 7.4 Albumin 4.1 Globulin 3.3 Albumin/Globulin Ratio 1.3 Urine Color Yellow Urine Appearance Clear Urine pH 6.0 Ur Specific K[place] >= 1.030 Urine Protein 30 H Urine Glucose (UA) Negative Urine Ketones Negative Urine Blood Negative Urine Nitrate Negative Urine Bilirubin Negative Urine Urobilinogen 0.2 Ur Leukocyte Esterase Negative Urine RBC 0 - 2 Urine WBC 0 - 2 Ur Epithelial Cells Many H Urine Bacteria Few Influenza Typ A,B (EIA) Grp A Beta Strep Ag Assessment & Plan - Assessment and Plan (Free Text) Assessment: Infectious diseases Attending Physician Attestation Patient seen and examined, discussed with rn medical inpatient services. I have reviewed the patient's history of present illness, past medical, social, personal and family histories, pertinent physical exam findings, course so far in this hospital admission, pertinent laboratory and imaging results. I agree with the above findings, assessment and plan. In addition, started Zosyn for this patient with probable proctocolitis as seen on CT A/P - follow up GI recommendations. Follow up blood cx. Patient complaining of flu-like illness - will start Tamiflu - reviewed Humira and Tamiflu and there is no documented interaction between the two.
[2018-08-08] MEDS: Piperacillin/Tazobact 3.375 gm 100 ML IVPB SCH ×3 (02:09→16:53)
[2018-08-08 07:42] LABS: BASO # 0.02 K/mm3 (0.0-2.0); BASO % 0.4 % (0.0-3.0); EOS # 0.1 (0.0-0.7); HEMOGLOBIN 12.6 g/dL (12.0-16.0); LYMPH # 1.2 (1.2-3.4); MEAN CELL VOLUME 91.6 fl (80.0-105.0); MEAN CORPUSCULAR HEMOGLOBIN 28.8 pg (25.0-35.0); MEAN CORPUSCULAR HGB CONC 31.4 g/dl (31.0-37.0); MEAN PLATELET VOLUME 9.9 fl (7.0-11.0); MONO # 0.7 (0.1-0.6); MONO % 12.1 % (1.0-6.0); RBC 4.38 10^6/uL (3.5-6.1); RED CELL DISTRIBUTION WIDTH 14.1 % (11.5-14.5); WHITE BLOOD COUNT 5.6 10^3/uL (4.5-11.0)
[2018-08-08 08:05] LABS: ALB/GLOB RATIO 1.3 (1.1-1.8); ALBUMIN 4.3 g/dL (3.0-4.8); ALT/SGPT 21 U/L (7-56); AST/SGOT 30 U/L (14-36); BLOOD UREA NITROGEN 10 mg/dL (7-21); CALCIUM 9.1 mg/dL (8.4-10.5); GFR NON-AFRICAN AMERICAN > 60
--- NOTE | 2018-08-08 13:46 | CP.PCM.PN ---
<JenniferEduarda - Last Filed: 08/08/18 13:43> Subjective - Date & Time of Evaluation Date of Evaluation: 08/08/18 Time of Evaluation: 08:00 - Subjective Subjective: Pgy3 Medicine progress note for Dr. Vallejo Patient seen and examined at bedside. Patient had no acute events as per nursing. She is on droplet precautions for suspected flu. Patient reports she has been noticing blood when she wipes- she reports passing gas but has not had a proper BM since being admitted. She denies any fever, chills, headache, dizziness, chest pain, palpitations, SOB, cough, abd pain, nausea, vomiting, urinary complaints, pain/swelling in her legs b/l. Patient is ambulating around her room and is eager to shower. Objective - Vital Signs/Intake and Output Vital Signs (last 24 hours): Temp Pulse Resp BP Pulse Ox 98.3 F 82 20 151/71 H 96 08/08/18 06:00 08/08/18 10:19 08/08/18 06:00 08/08/18 10:19 08/08/18 06:00 Intake and Output: 08/08/18 08/08/18 06:59 18:59 Intake Total 660 Balance 660 - Medications Medications: Current Medications Acetaminophen (Tylenol 325mg Tab) 650 mg PO Q6H PRN PRN Reason: Fever >100.4 F Amlodipine Besylate (Norvasc) 5 mg PO DAILY [facility] Last Admin: 08/08/18 10:19 Dose: 5 mg Atorvastatin Calcium (Lipitor) 10 mg PO DAILY [facility] Last Admin: 08/08/18 10:16 Dose: 10 mg Piperacillin Sod/Tazobactam Sod (Zosyn 3.375 In Ns 100ml) 100 mls @ 25 mls/hr IVPB Q8H [facility]; Protocol Stop: 08/14/18 06:46 Last Admin: 08/08/18 10:20 Dose: 25 mls/hr Oseltamivir Phosphate (Tamiflu Cap) 75 mg PO BID [facility]; Protocol Stop: 08/12/18 10:12 Last Admin: 08/08/18 10:16 Dose: 75 mg - Labs Labs: 08/08/18 07:20 08/08/18 07:20 - Additional Findings Additional findings: - Constitutional Appears: Non-toxic, No Acute Distress - Head Exam Head Exam: ATRAUMATIC, NORMAL INSPECTION, NORMOCEPHALIC - Eye Exam Eye Exam: EOMI, Normal appearance, PERRL. absent: Conjunctival injection, Scleral icterus - ENT Exam ENT Exam: Mucous Membranes Moist - Neck Exam Neck exam: Positive for: Full Rom. Negative for: Lymphadenopathy - Respiratory Exam Respiratory Exam: Clear to Auscultation Bilateral, NORMAL BREATHING PATTERN. absent: Accessory Muscle Use, Rales, Rhonchi, Wheezes - Cardiovascular Exam Cardiovascular Exam: RRR, +S1, +S2 - GI/Abdominal Exam GI & Abdominal Exam: Normal Bowel Sounds, Soft, Tenderness (minimal- lower abdomen to palpation). absent: Distended, Firm, Guarding - Extremities Exam Extremities exam: Positive for: normal inspection, pedal pulses present. Negative for: pedal edema - Back Exam Back exam: NORMAL INSPECTION. absent: tenderness - Neurological Exam Neurological exam: Alert, CN II-XII Intact, Normal Gait, Oriented x3 - Psychiatric Exam Psychiatric exam: Normal Affect, Normal Mood - Skin Skin Exam: Dry, Intact, Normal Color, Warm Assessment and Plan - Assessment and Plan (Free Text) Assessment: -Proctocolitis -Flu-like symptoms -Ulcerative Colitis -HTN -HLD -COPD -Hidroadenitis Supporativa Plan: Patient's vitals, blood work, and imaging noted. CT Abd/pelvis consistent with proctocolitis. GI and ID on board. Patient continued on IV Zosyn. As patient showed flu-like symptoms and has sick contact, started on Tamiflu as per ID and placed on droplet precautions. CXR unremarkable; further septic work up pending. Tylenol on board for fever. Patient's Humira on hold at this time. Maintain normotension and continue home Norvasc. Patient's lipitor also continued for HLD. Appreciate GI and ID reccs. As per GI patient will go for flex sig in the AM- will f/u. Will continue to monitor closely at this time. Patient tolerating HHD. Discussed with Dr. Genevieve Rodriguez PGY3 <Vipul Vallejo - Last Filed: 08/08/18 16:41> Objective - Vital Signs/Intake and Output Vital Signs (last 24 hours): Temp Pulse Resp BP Pulse Ox 98.9 F 71 20 136/80 95 08/08/18 14:00 02/06/19 14:00 08/08/18 14:00 08/08/18 14:00 08/08/18 14:00 Intake and Output: 08/08/18 08/08/18 06:59 18:59 Intake Total 660 Balance 660 - Medications Medications: Current Medications Acetaminophen (Tylenol 325mg Tab) 650 mg PO Q6H PRN PRN Reason: Fever >100.4 F Amlodipine Besylate (Norvasc) 5 mg PO DAILY [facility] Last Admin: 08/08/18 10:19 Dose: 5 mg Atorvastatin Calcium (Lipitor) 10 mg PO DAILY [facility] Last Admin: 08/08/18 10:16 Dose: 10 mg Bisacodyl (Dulcolax) 10 mg PO ONCE ONE Stop: 08/08/18 19:01 Piperacillin Sod/Tazobactam Sod (Zosyn 3.375 In Ns 100ml) 100 mls @ 25 mls/hr IVPB Q8H [facility]; Protocol Stop: 08/14/18 06:46 Last Admin: 08/08/18 10:20 Dose: 25 mls/hr Oseltamivir Phosphate (Tamiflu Cap) 75 mg PO BID [facility]; Protocol Stop: 08/12/18 10:12 Last Admin: 08/08/18 10:16 Dose: 75 mg - Labs Labs: 08/08/18 07:20 08/08/18 07:20 Assessment and Plan - Assessment and Plan (Free Text) Plan: Pt seen and examined by me. I have reviewed the note of the medical equipment repair technician and I agree with it. I have discussed the assessment and plan with the resident. I have reviewed the medications and the last labs. Pt with Proctocolitis and is on IV Zosyn. She has been started on Tamiflu for a possible flu. Fever has improved. She is going to get sigmoidoscopy. She is on Lipitor for dyslipidemia. She has Ulcerative Colitis and has been stable. She has been on Chacha for her hidradenitis suppurativa.
--- NOTE | 2018-08-08 14:09 | CP.PCM.PN ---
<Lio Clemente - Last Filed: 08/08/18 13:55> Subjective - Date & Time of Evaluation Date of Evaluation: 08/08/18 Time of Evaluation: 10:00 - Subjective Subjective: ID progress note: Pt seen and examined at bedside. No acute events overnight. Denies any further episodes of fever or chills. Denies any abdominal pain. 12 Point ROS performed and neg other than stated above. Objective - Vital Signs/Intake and Output Vital Signs (last 24 hours): Temp Pulse Resp BP Pulse Ox 98.3 F 82 20 151/71 H 96 08/08/18 06:00 08/08/18 10:19 08/08/18 06:00 08/08/18 10:08/08/18 06:00 Intake and Output: 08/08/18 08/08/18 06:59 18:59 Intake Total 660 Balance 660 - Medications Medications: Current Medications Acetaminophen (Tylenol 325mg Tab) 650 mg PO Q6H PRN PRN Reason: Fever >100.4 F Amlodipine Besylate (Norvasc) 5 mg PO DAILY [facility] Last Admin: 08/08/18 10:19 Dose: 5 mg Atorvastatin Calcium (Lipitor) 10 mg PO DAILY [facility] Last Admin: 08/08/18 10:16 Dose: 10 mg Piperacillin Sod/Tazobactam Sod (Zosyn 3.375 In Ns 100ml) 100 mls @ 25 mls/hr IVPB Q8H [facility]; Protocol Stop: 08/14/18 06:46 Last Admin: 08/08/18 10:20 Dose: 25 mls/hr Oseltamivir Phosphate (Tamiflu Cap) 75 mg PO BID [facility]; Protocol Stop: 08/12/18 10:12 Last Admin: 08/08/18 10:16 Dose: 75 mg - Labs Labs: 08/08/18 07:20 08/08/18 07:20 - Constitutional Appears: No Acute Distress - Head Exam Head Exam: ATRAUMATIC, NORMOCEPHALIC - ENT Exam ENT Exam: Mucous Membranes Moist - Respiratory Exam Respiratory Exam: Clear to Ausculation Bilateral (no r/r/w) - Cardiovascular Exam Cardiovascular Exam: REGULAR RHYTHM, +S1, +S2 - GI/Abdominal Exam GI & Abdominal Exam: Soft (NTND) - Neurological Exam Neurological Exam: Alert, Awake, Oriented x3 - Psychiatric Exam Psychiatric exam: Normal Mood - Skin Skin Exam: Dry, Warm Assessment and Plan - Assessment and Plan (Free Text) Assessment: 63-year-old female with past medical history of ulcerative colitis on Humira, hypertension, COPD, and hydroadenitis presents to the ED for 1 day history of cough, fever, chills. R/o influenza Cont with Tamiflu (Possible drug interaction was checked between Tamiflu and Humira, no interaction found) CT of the abdomen and pelvis - consistent with proctocolitis therefore continue with Zosyn F/u GI recs - possible sigmoidoscopy semaj am Follow-up further septic workup Continue to monitor Case and plan was reviewed and discussed with Dr. Emmanuel. <Severiano Emmanuel - Last Filed: 08/08/18 15:27> Objective - Vital Signs/Intake and Output Vital Signs (last 24 hours): Temp Pulse Resp BP Pulse Ox 98.9 F 71 20 136/80 95 08/08/18 14:00 08/08/18 14:00 08/08/18 14:00 08/08/18 14:00 08/08/18 14:00 Intake and Output: 08/08/18 08/08/18 06:59 18:59 Intake Total 660 Balance 660 - Medications Medications: Current Medications Acetaminophen (Tylenol 325mg Tab) 650 mg PO Q6H PRN PRN Reason: Fever >100.4 F Amlodipine Besylate (Norvasc) 5 mg PO DAILY [facility] Last Admin: 08/08/18 10:19 Dose: 5 mg Atorvastatin Calcium (Lipitor) 10 mg PO DAILY [facility] Last Admin: 08/08/18 10:16 Dose: 10 mg Piperacillin Sod/Tazobactam Sod (Zosyn 3.375 In Ns 100ml) 100 mls @ 25 mls/hr IVPB Q8H [facility]; Protocol Stop: 08/14/18 06:46 Last Admin: 08/08/18 10:20 Dose: 25 mls/hr Oseltamivir Phosphate (Tamiflu Cap) 75 mg PO BID [facility]; Protocol Stop: 08/12/18 10:12 Last Admin: 08/08/18 10:16 Dose: 75 mg - Labs Labs: 08/08/18 07:20 08/08/18 07:20 Assessment and Plan - Assessment and Plan (Free Text) Assessment: Infectious diseases Attending Physician Attestation Patient seen and examined, discussed with chief medical physicist. I have reviewed the patient's history of present illness, past medical, social, personal and family histories, pertinent physical exam findings, course so far in this hospital admission, pertinent laboratory and imaging results. I agree with the above findings, assessment and plan. In addition, on Zosyn for proctocolitis. Patient is feeling better and cultures have been negative - when ready to be discharged, can switch to PO antibiotics. Complete 5 day course of Tamiflu.
--- NOTE | 2018-08-08 15:40 | CP.PCM.PN ---
Subjective - Date & Time of Evaluation Date of Evaluation: 08/08/18 Time of Evaluation: 15:36 - Subjective Subjective: Gastroenterology Fellow/PGY6 Progress Note for Dr. Neumann patient resting comfortably. Denies abdominal pain. Tolerating liquid diet. Notes small bowel movement yesterday. A 12-point review of systems negative except for as above. Objective - Vital Signs/Intake and Output Vital Signs (last 24 hours): Temp Pulse Resp BP Pulse Ox 98.9 F 71 20 136/80 95 08/08/18 14:00 08/08/18 14:00 08/08/18 14:00 08/08/18 14:00 08/08/18 14:00 Intake and Output: 08/08/18 08/08/18 06:59 18:59 Intake Total 660 Balance 660 - Medications Medications: Current Medications Acetaminophen (Tylenol 325mg Tab) 650 mg PO Q6H PRN PRN Reason: Fever >100.4 F Amlodipine Besylate (Norvasc) 5 mg PO DAILY [facility] Last Admin: 08/08/18 10:19 Dose: 5 mg Atorvastatin Calcium (Lipitor) 10 mg PO DAILY [facility] Last Admin: 08/08/18 10:16 Dose: 10 mg Piperacillin Sod/Tazobactam Sod (Zosyn 3.375 In Ns 100ml) 100 mls @ 25 mls/hr IVPB Q8H [facility]; Protocol Stop: 08/14/18 06:46 Last Admin: 08/08/18 10:20 Dose: 25 mls/hr Oseltamivir Phosphate (Tamiflu Cap) 75 mg PO BID [facility]; Protocol Stop: 08/12/18 10:12 Last Admin: 08/08/18 10:16 Dose: 75 mg - Labs Labs: 08/08/18 07:20 08/08/18 07:20 - Constitutional Appears: Non-toxic, No Acute Distress - Head Exam Head Exam: ATRAUMATIC, NORMOCEPHALIC - Eye Exam Eye Exam: EOMI, PERRL. absent: Scleral icterus Pupil Exam: PERRL. absent: Miosis, Mydriatic - ENT Exam ENT Exam: Mucous Membranes Moist, Normal Oropharynx - Neck Exam Neck Exam: Full ROM, Normal Inspection - Respiratory Exam Respiratory Exam: Clear to Ausculation Bilateral. absent: Rales, Rhonchi, Wheezes - Cardiovascular Exam Cardiovascular Exam: RRR, +S1, +S2. absent: Gallop, Rubs - GI/Abdominal Exam GI & Abdominal Exam: Soft, Normal Bowel Sounds. absent: Distended, Firm, Guarding, Rigid, Tenderness, Organomegaly, Rebound - Extremities Exam Extremities Exam: Normal Inspection, Pedal Edema - Neurological Exam Neurological Exam: Alert, Awake - Psychiatric Exam Psychiatric exam: Normal Affect, Normal Mood - Skin Skin Exam: Dry, Intact, Normal Color, Warm Assessment and Plan - Assessment and Plan (Free Text) Assessment: 63 year old female with PMH of Crohn's disease on Apriso QID/Humira [id number], Cidd and diverticulitis, HTN, COPD, and hidradenitis suppurativa presenting with fever, chills, diarrhea and abdominal pain. Active treatment of proctocolitis on CT abdomen/pelvis. Last colonoscopy 12/2016 showed left sided Crohn's colitis and normal terminal ileum. Plan: -pending Cdiff -On zoysn -clear liquid diet, NPO after midnight -flexible sigmoidoscopy tomorrow -ID managing-on tamiflu -will follow clinical course Case discussed with Dr. Neumann
[2018-08-08] MEDS ORDERED: Magnesium Citrate Oral SOL (300 ml) PO ONE (15:53)
[2018-08-08] MEDS: Bisacodyl 5mg EC Tab PO ONE ×2 (22:38→23:14)
[2018-08-09] MEDS: Piperacillin/Tazobact 3.375 gm 100 ML IVPB SCH ×3 (00:34→19:57)
[2018-08-09 07:29] LABS: BASO # 0.01 K/mm3 (0.0-2.0); BASO % 0.2 % (0.0-3.0); EOS # 0.2 (0.0-0.7); LYMPH # 1.2 (1.2-3.4); LYMPH % 20.3 % (22.0-35.0); MEAN CORPUSCULAR HEMOGLOBIN 28.8 pg (25.0-35.0); MEAN CORPUSCULAR HGB CONC 31.3 g/dl (31.0-37.0); MEAN PLATELET VOLUME 9.8 fl (7.0-11.0); MONO # 0.7 (0.1-0.6); MONO % 11.8 % (1.0-6.0); RBC 4.52 10^6/uL (3.5-6.1); RED CELL DISTRIBUTION WIDTH 14.2 % (11.5-14.5)
[2018-08-09 07:46] LABS: ALB/GLOB RATIO 1.2 (1.1-1.8); ALBUMIN 4.3 g/dL (3.0-4.8); ALT/SGPT 24 U/L (7-56); AST/SGOT 35 U/L (14-36); BLOOD UREA NITROGEN 7 mg/dL (7-21); CALCIUM 9.1 mg/dL (8.4-10.5); GFR NON-AFRICAN AMERICAN > 60
--- NOTE | 2018-08-09 08:10 | CP.PCM.PN ---
<Lio Clemente - Last Filed: 08/09/18 12:35> Subjective - Date & Time of Evaluation Date of Evaluation: 08/09/18 Time of Evaluation: 07:00 - Subjective Subjective: ID progress note: Pt seen and examined at bedside. No acute events overnight. NPO for felx sigmoidoscopy today. Denies any fever, chills or cough. 12 Point ROS performed and neg other than stated above. Objective - Vital Signs/Intake and Output Vital Signs (last 24 hours): Temp Pulse Resp BP Pulse Ox 97.9 F 79 23 131/71 99 08/09/18 07:35 08/09/18 07:35 08/09/18 07:35 08/09/18 07:35 08/09/18 08:05 Intake and Output: 08/09/18 08/09/18 06:59 18:59 Intake Total 600 Balance 600 - Medications Medications: Current Medications Acetaminophen (Tylenol 325mg Tab) 650 mg PO Q6H PRN PRN Reason: Fever >100.4 F Amlodipine Besylate (Norvasc) 5 mg PO DAILY [facility] Last Admin: 08/08/18 10:19 Dose: 5 mg Atorvastatin Calcium (Lipitor) 10 mg PO DAILY [facility] Last Admin: 08/08/18 10:16 Dose: 10 mg Piperacillin Sod/Tazobactam Sod (Zosyn 3.375 In Ns 100ml) 100 mls @ 25 mls/hr IVPB Q8H [facility]; Protocol Stop: 08/14/18 06:46 Last Admin: 08/09/18 00:34 Dose: 25 mls/hr Oseltamivir Phosphate (Tamiflu Cap) 75 mg PO BID [facility]; Protocol Stop: 08/12/18 10:12 Last Admin: 08/08/18 17:02 Dose: 75 mg - Labs Labs: 08/09/18 07:15 08/09/18 07:15 - Constitutional Appears: No Acute Distress - Head Exam Head Exam: ATRAUMATIC, NORMOCEPHALIC - Eye Exam Eye Exam: EOMI - ENT Exam ENT Exam: Mucous Membranes Moist - Respiratory Exam Respiratory Exam: Clear to Ausculation Bilateral. absent: Rales, Rhonchi, Wheezes - Cardiovascular Exam Cardiovascular Exam: REGULAR RHYTHM, +S1, +S2 - GI/Abdominal Exam GI & Abdominal Exam: Soft. absent: Tenderness - Extremities Exam Extremities Exam: absent: Calf Tenderness, Pedal Edema - Neurological Exam Neurological Exam: Alert, Awake - Psychiatric Exam Psychiatric exam: Normal Mood - Skin Skin Exam: Dry, Warm Assessment and Plan - Assessment and Plan (Free Text) Assessment: 63-year-old female with past medical history of ulcerative colitis on Humira, hypertension, COPD, and hydroadenitis presents to the ED for 1 day history of cough, fever, chills. R/o influenza. Pt found to have proctocolitis and plan for flex sigmoidoscopy today. F/u GI recs - possible sigmoidoscopy semaj am Cont with Tamiflu to complete [address] of the abdomen and pelvis - consistent with proctocolitis therefore continue with Zosyn Can d/c with Vantin and Flagyl upon discharge Follow-up further septic workup Continue to monitor Case and plan was reviewed and discussed with Dr. Emmanuel. <Severiano Emmanuel - Last Filed: 08/09/18 18:24> Objective - Vital Signs/Intake and Output Vital Signs (last 24 hours): Temp Pulse Resp BP Pulse Ox 98.6 F 75 18 118/53 L 94 L 08/09/18 14:00 08/09/18 14:00 08/09/18 14:00 08/09/18 14:00 08/09/18 14:00 Intake and Output: 08/09/18 08/09/18 06:59 18:59 Intake Total 600 420 Balance 600 420 - Medications Medications: Current Medications Acetaminophen (Tylenol 325mg Tab) 650 mg PO Q6H PRN PRN Reason: Fever >100.4 F Amlodipine Besylate (Norvasc) 5 mg PO DAILY [facility] Last Admin: 08/09/18 10:34 Dose: 5 mg Atorvastatin Calcium (Lipitor) 10 mg PO DAILY [facility] Last Admin: 08/09/18 10:34 Dose: 10 mg Piperacillin Sod/Tazobactam Sod (Zosyn 3.375 In Ns 100ml) 100 mls @ 25 mls/hr IVPB Q8H [facility]; Protocol Stop: 08/14/18 06:46 Last Admin: 08/09/18 10:36 Dose: 25 mls/hr Oseltamivir Phosphate (Tamiflu Cap) 75 mg PO BID [facility]; Protocol Stop: 08/12/18 10:12 Last Admin: 08/09/18 10:34 Dose: 75 mg - Labs Labs: 08/09/18 07:15 08/09/18 07:15 PT 13.3 SECONDS (9.4-12.5) H 08/09/18 08:15 INR 1.18 08/09/18 08:15 Assessment and Plan - Assessment and Plan (Free Text) Assessment: Infectious diseases Attending Physician Attestation Patient seen and examined, discussed with medical claims analyst. I have reviewed the patient's history of present illness, past medical, social, personal and family histories, pertinent physical exam findings, course so far in this hospital admission, pertinent laboratory and imaging results. I agree with the above findings, assessment and plan. In addition, had sigmoidoscopy today and will follow up results. When ready to be discharged, can be switched to PO Vantin and Flagyl for proctocolitis and complete course of Tamiflu for possible Influenza infection. On Zosyn currently.
[2018-08-09 08:32] LABS: INR 1.18; PROTHROMBIN TIME 13.3 SECONDS (9.4-12.5)
[2018-08-09] MEDS ORDERED: Propofol 10 mg/ml Inj (20 ML) ONE (08:52)
[2018-08-09] MEDS ORDERED: Phenylephrine 10 mg/ml Inj ONE (09:26)
[2018-08-09] MEDS ORDERED: Sodium Chloride 0.9% 1,000 ML IV SCH (09:45)
--- NOTE | 2018-08-09 10:51 | PN ---
DATE: 08/09/2018 SUBJECTIVE: The patient has no complaints of any chest pain. No shortness of breath or headache. She is having diarrhea because she received laxative. PHYSICAL EXAMINATION VITAL SIGNS: Temperature is 97.9, pulse of 79, blood pressure 131/71 and respirations 23. GENERAL: The patient is lying in bed, flat, comfortable. HEENT: No oral lesion. Anicteric sclerae. Moist mucosa. NECK: No JVD, adenopathy, or thyromegaly. CARDIOVASCULAR: S1 and S2, regular. No murmurs, rubs, or gallops. LUNGS: Clear to auscultation bilaterally. No wheeze, rales, or rhonchi. ABDOMEN: Bowel sounds are positive, soft, nontender and nondistended. EXTREMITIES: No cyanosis, clubbing or edema. LABORATORY DATA: White count of 6 and hemoglobin 13. Creatinine is 0.7. ASSESSMENT: 1. Proctocolitis. 2. Ulcerative colitis. 3. Hypertension. 4. Dyslipidemia. 5. Chronic obstructive pulmonary disease. 6. Hidradenitis suppurativa. PLAN: The patient is currently comfortable. She is on magnesium as a prep for her sigmoidoscopy today, it was delayed from yesterday. The patient is on Lipitor for dyslipidemia. She is on Norvasc for hypertension. The patient is on Zosyn for antibiotic. She is afebrile. Her blood cultures have been negative. Her throat cultures are negative for beta group A strep. We will await input from GI. Vipul Vallejo MD
[2018-08-10] MEDS: Piperacillin/Tazobact 3.375 gm 100 ML IVPB SCH ×2 (01:33→08:49)
[2018-08-10 07:37] LABS: BASO # 0.02 K/mm3 (0.0-2.0); BASO % 0.4 % (0.0-3.0); EOS # 0.3 (0.0-0.7); EOS % 4.8 % (1.5-5.0); HEMOGLOBIN 11.9 g/dL (12.0-16.0); LYMPH # 1.3 (1.2-3.4); LYMPH % 23.5 % (22.0-35.0); MEAN CORPUSCULAR HEMOGLOBIN 28.7 pg (25.0-35.0); MEAN CORPUSCULAR HGB CONC 31.2 g/dl (31.0-37.0); MEAN PLATELET VOLUME 9.9 fl (7.0-11.0); MONO # 0.5 (0.1-0.6); MONO % 9.2 % (1.0-6.0); RBC 4.14 10^6/uL (3.5-6.1); RED CELL DISTRIBUTION WIDTH 14.1 % (11.5-14.5); WHITE BLOOD COUNT 5.4 10^3/uL (4.5-11.0)
[2018-08-10 07:47] LABS: ALB/GLOB RATIO 1.2 (1.1-1.8); ALBUMIN 3.8 g/dL (3.0-4.8); ALT/SGPT 22 U/L (7-56); AST/SGOT 28 U/L (14-36); BLOOD UREA NITROGEN 8 mg/dL (7-21); CALCIUM 8.8 mg/dL (8.4-10.5); GFR NON-AFRICAN AMERICAN > 60
[2018-08-10 08:31] VITALS: BP 144/63; PULSE 74; RESP 18; TEMP 98.2; O2SAT 97
--- NOTE | 2018-08-10 08:35 | CP.PCM.PN ---
<Lio Clemente - Last Filed: 08/10/18 13:39> Subjective - Date & Time of Evaluation Date of Evaluation: 08/10/18 Time of Evaluation: 07:10 - Subjective Subjective: ID progress note: Pt seen and examined at bedside. No acute events overnight. Patient with diarrhea yesterday but attributes it to the prep for sigmoidoscopy with biopsy yesterday. No fever, chills or cough. 12 Point ROS performed and neg other than stated above. Objective - Vital Signs/Intake and Output Vital Signs (last 24 hours): Temp Pulse Resp BP Pulse Ox 98.2 F 74 18 144/63 97 08/10/18 06:00 08/10/18 06:00 08/10/18 06:00 08/10/18 06:00 08/10/18 06:00 Intake and Output: 08/10/18 08/10/18 06:59 18:59 Intake Total 720 Balance 720 - Medications Medications: Current Medications Acetaminophen (Tylenol 325mg Tab) 650 mg PO Q6H PRN PRN Reason: Fever >100.4 F Amlodipine Besylate (Norvasc) 5 mg PO DAILY [facility] Last Admin: 08/09/18 10:34 Dose: 5 mg Atorvastatin Calcium (Lipitor) 10 mg PO DAILY [facility] Last Admin: 08/09/18 10:34 Dose: 10 mg Piperacillin Sod/Tazobactam Sod (Zosyn 3.375 In Ns 100ml) 100 mls @ 25 mls/hr IVPB Q8H [facility]; Protocol Stop: 08/14/18 06:46 Last Admin: 08/10/18 01:33 Dose: 25 mls/hr Oseltamivir Phosphate (Tamiflu Cap) 75 mg PO BID [facility]; Protocol Stop: 08/12/18 10:12 Last Admin: 08/09/18 19:57 Dose: 75 mg - Labs Labs: 08/10/18 07:25 08/10/18 07:25 PT 13.3 SECONDS (9.4-12.5) H 08/09/18 08:15 INR 1.18 08/09/18 08:15 - Constitutional Appears: No Acute Distress - Eye Exam Eye Exam: EOMI - Respiratory Exam Respiratory Exam: Clear to Ausculation Bilateral. absent: Rales, Rhonchi, Wheezes - Cardiovascular Exam Cardiovascular Exam: REGULAR RHYTHM, +S1, +S2 - GI/Abdominal Exam GI & Abdominal Exam: Soft. absent: Tenderness - Extremities Exam Extremities Exam: absent: Calf Tenderness, Pedal Edema - Neurological Exam Neurological Exam: Alert, Awake, Oriented x3 - Skin Skin Exam: Dry, Intact, Warm Assessment and Plan - Assessment and Plan (Free Text) Assessment: 63-year-old female with past medical history of ulcerative colitis on Humira, hypertension, COPD, and hydroadenitis presents to the ED for 1 day history of cough, fever, chills. R/o influenza. Pt found to have proctocolitis and plan for flex sigmoidoscopy today. F/u GI recs - f/u report for sigmoidoscopy Cont with Tamiflu to complete 5 days Continue with Zosyn; Can d/c with Vantin and Flagyl upon discharge for 6 days Follow-up further septic workup - neg Continue to monitor Case and plan was reviewed and discussed with Dr. Emmanuel. <Severiano Emmanuel - Last Filed: 08/10/18 19:42> Objective - Vital Signs/Intake and Output Vital Signs (last 24 hours): Temp Pulse Resp BP Pulse Ox 98.2 F 74 18 144/63 97 08/10/18 06:00 08/10/18 09:36 08/10/18 06:00 08/10/18 09:36 08/10/18 06:00 - Labs Labs: 08/10/18 07:25 08/10/18 07:25 PT 13.3 SECONDS (9.4-12.5) H 08/09/18 08:15 INR 1.18 08/09/18 08:15 Assessment and Plan - Assessment and Plan (Free Text) Assessment: Infectious diseases Attending Physician Attestation Patient seen and examined, discussed with medical writer. I have reviewed the patient's history of present illness, past medical, social, personal and family histories, pertinent physical exam findings, course so far in this hospital admission, pertinent laboratory and imaging results. I agree with the above findings, assessment and plan. In addition, can switch to PO Vantin and Flagyl for proctocolitis. Complete 5 days total therapy of Tamiflu for possible Influenza.
--- NOTE | 2018-08-10 11:52 | CP.PCM.PN ---
<Sasha Chirinos - Last Filed: 08/10/18 11:56> Subjective - Date & Time of Evaluation Date of Evaluation: 08/10/18 Time of Evaluation: 11:49 - Subjective Subjective: Gastroenterology Fellow/PGY6 Progress Note for Dr. Neumann Patient sitting on side of bed. Denies abdominal pain. Tolerating liquid diet. Notes bowel movements yesterday morning due to bowel prep. A 12-point review of systems negative except for as above. Objective - Vital Signs/Intake and Output Vital Signs (last 24 hours): Temp Pulse Resp BP Pulse Ox 98.2 F 74 18 144/63 97 08/10/18 06:00 08/10/18 09:36 08/10/18 06:00 08/10/18 09:36 08/10/18 06:00 Intake and Output: 08/10/18 08/10/18 06:59 18:59 Intake Total 720 Balance 720 - Medications Medications: Current Medications Acetaminophen (Tylenol 325mg Tab) 650 mg PO Q6H PRN PRN Reason: Fever >100.4 F Amlodipine Besylate (Norvasc) 5 mg PO DAILY [facility] Last Admin: 08/10/18 09:36 Dose: 5 mg Atorvastatin Calcium (Lipitor) 10 mg PO DAILY [facility] Last Admin: 08/10/18 09:36 Dose: 10 mg Piperacillin Sod/Tazobactam Sod (Zosyn 3.375 In Ns 100ml) 100 mls @ 25 mls/hr IVPB Q8H [facility]; Protocol Stop: 08/14/18 06:46 Last Admin: 08/10/18 08:49 Dose: 25 mls/hr Oseltamivir Phosphate (Tamiflu Cap) 75 mg PO BID [facility]; Protocol Stop: 08/12/18 10:12 Last Admin: 08/10/18 09:35 Dose: 75 mg - Labs Labs: 08/10/18 07:25 08/10/18 07:25 PT 13.3 SECONDS (9.4-12.5) H 08/09/18 08:15 INR 1.18 08/09/18 08:15 - Constitutional Appears: Non-toxic, No Acute Distress - Head Exam Head Exam: ATRAUMATIC, NORMOCEPHALIC - Eye Exam Eye Exam: EOMI, PERRL. absent: Scleral icterus Pupil Exam: PERRL. absent: Miosis, Mydriatic - ENT Exam ENT Exam: Mucous Membranes Moist, Normal Oropharynx - Neck Exam Neck Exam: Full ROM, Normal Inspection - Respiratory Exam Respiratory Exam: Clear to Ausculation Bilateral. absent: Rales, Rhonchi, Wheezes - Cardiovascular Exam Cardiovascular Exam: RRR, +S1, +S2. absent: Gallop, Rubs - GI/Abdominal Exam GI & Abdominal Exam: Soft, Normal Bowel Sounds. absent: Distended, Firm, Guarding, Rigid, Tenderness, Rebound - Extremities Exam Extremities Exam: Normal Inspection. absent: Pedal Edema - Neurological Exam Neurological Exam: Alert, Awake - Psychiatric Exam Psychiatric exam: Normal Affect, Normal Mood - Skin Skin Exam: Dry, Intact, Normal Color, Warm Assessment and Plan - Assessment and Plan (Free Text) Assessment: 63 year old female with PMH of Crohn's disease on Apriso QID/Humira [id number], Cidd and diverticulitis, HTN, COPD, and hidradenitis suppurativa presenting with fever, chills, diarrhea and abdominal pain. Active treatment of proctocolitis on CT abdomen/pelvis. Last colonoscopy 12/2016 showed left-sided Crohn's colitis and normal terminal ileum. Plan: -POD1 (08/09) flexible sigmoidoscopy- proctocolitis, biopsy pending -Cdiff negative -ID managing- On zosyn -tolerating regular diet -plan for outpatient follow up to re-assess symptoms, review pathology, and provide recommendation on restarting Humira outpatient after resolution of acute infectious process with Influenza and ruling out HSV/CMV on colonic biopsy -patient will benefit from IBD tertiary care referral outpatient for medical management of simultaneous hidradenitis suppuritiva and IBD Case discussed with Dr. Neumann <Wesley Neumann V - Last Filed: 08/11/18 00:44> Objective - Vital Signs/Intake and Output Vital Signs (last 24 hours): Temp Pulse Resp BP Pulse Ox 98.2 F 74 18 144/63 97 08/10/18 06:00 08/10/18 09:36 08/10/18 06:00 08/10/18 09:36 08/10/18 06:00 - Labs Labs: 08/10/18 07:25 08/10/18 07:25 PT 13.3 SECONDS (9.4-12.5) H 08/09/18 08:15 INR 1.18 08/09/18 08:15 Attending/Attestation - Attestation I have personally seen and examined this patient.: Yes I have fully participated in the care of the patient.: Yes I have reviewed all pertinent clinical information, including history, physical exam and plan: Yes Notes (Text): p 08/11/18 00:44
--- NOTE | 2018-08-10 12:07 | CP.PCM.DIS ---
<Eduarda Rodriguez - Last Filed: 08/10/18 14:56> Provider - Provider Date of Admission: 08/06/18 23:45 Attending physician: Vipul Vallejo MD Primary care physician: Consults: 08/07/18 06:40 Infectious Disease Consult Routine Comment: Consulting Provider: Severiano Emmanuel Consulting Physician: Severiano Emmanuel Reason for Consult: proctocolitis; req IV abx 08/07/18 08:55 Consult [Physician Consult] Routine Comment: Consulting Provider: Wesley Neumann V Consulting Physician: Wesley Neumann V Reason for Consult: colitis hx of UC Time Spent in preparation of Discharge (in minutes): 35 Hospital Course - Lab Results Lab Results: Micro Results 08/06/18 23:40 Blood Blood Culture - Preliminary NO GROWTH AFTER 3 DAYS 08/06/18 23:25 Blood Blood Culture - Preliminary NO GROWTH AFTER 3 DAYS 08/09/18 09:25 Stool C. difficile Antigen & Toxins A,B - Final 08/06/18 20:14 Throat Group A Strep Throat Culture - Final NO BETA STREP GROUP A ISOLATED. Most Recent Lab Values WBC 5.4 10^3/uL (4.5-11.0) 08/10/18 07:25 RBC 4.14 10^6/uL (3.5-6.1) 08/10/18 07:25 Hgb 11.9 g/dL (12.0-16.0) L 08/10/18 07:25 Hct 38.1 % (36.0-48.0) 08/10/18 07:25 MCV 92.0 fl (80.0-105.0) 08/10/18 07:25 MCH 28.7 pg (25.0-35.0) 08/10/18 07:25 MCHC 31.2 g/dl (31.0-37.0) 08/10/18 07:25 RDW 14.1 % (11.5-14.5) 08/10/18 07:25 Plt Count 230 10^3/uL (120.0-450.0) 08/10/18 07:25 MPV 9.9 fl (7.0-11.0) 08/10/18 07:25 Neut % (Auto) 62.1 % (50.0-68.0) 08/10/18 07:25 Lymph % (Auto) 23.5 % (22.0-35.0) 08/10/18 07:25 [place] % (Auto) 9.2 % (1.0-6.0) H 08/10/18 07:25 Eos % (Auto) 4.8 % (1.5-5.0) 08/10/18 07:25 Baso % (Auto) 0.4 % (0.0-3.0) 08/10/18 07:25 Lymph # (Auto) 1.3 (1.2-3.4) 08/10/18 07:25 [place] # (Auto) 0.5 (0.1-0.6) 08/10/18 07:25 Eos # (Auto) 0.3 (0.0-0.7) 08/10/18 07:25 Baso # (Auto) 0.02 K/mm3 (0.0-2.0) 08/10/18 07:25 Absolute Neuts (auto) 3.38 (1.4-6.5) 08/10/18 07:25 PT 13.3 SECONDS (9.4-12.5) H 08/09/18 08:15 INR 1.18 08/09/18 08:15 Sodium 142 mmol/L (132-148) 08/10/18 07:25 Potassium 4.1 mmol/L (3.6-5.0) 08/10/18 07:25 Chloride 105 mmol/L (98-107) 08/10/18 07:25 Carbon Dioxide 30 mmol/L (21-33) 08/10/18 07:25 Anion Gap 12 (10-20) 08/10/18 07:25 BUN 8 mg/dL (7-21) 08/10/18 07:25 Creatinine 0.7 mg/dl (0.7-1.2) 08/10/18 07:25 Est GFR ( Amer) > 60 08/10/18 07:25 Est GFR (Non-Af Amer) > 60 08/10/18 07:25 Random Glucose 133 mg/dL (70-110) H 08/10/18 07:25 Calcium 8.8 mg/dL (8.4-10.5) 08/10/18 07:25 Phosphorus 3.8 mg/dL (2.5-4.5) 08/07/18 08:25 Magnesium 2.0 mg/dL (1.7-2.2) 08/07/18 08:25 Total Bilirubin 0.7 mg/dL (0.2-1.3) 08/10/18 07:25 AST 28 U/L (14-36) 08/10/18 07:25 ALT 22 U/L (7-56) 08/10/18 07:25 Alkaline Phosphatase 86 U/L (38-126) 08/10/18 07:25 Total Protein 6.9 g/dL (5.8-8.3) 08/10/18 07:25 Albumin 3.8 g/dL (3.0-4.8) 08/10/18 07:25 Globulin 3.1 gm/dL 08/10/18 07:25 Albumin/Globulin Ratio 1.2 (1.1-1.8) 08/10/18 07:25 Urine Color Yellow (YELLOW) 08/06/18 22:18 Urine Appearance Clear (CLEAR) 08/06/18 22:18 Urine pH 6.0 (4.7-8.0) 08/06/18 22:18 Ur Specific Lejunior >= 1.030 (1.005-1.035) 08/06/18 22:18 Urine Protein 30 mg/dL (<30 mg/dL) H 08/06/18 22:18 Urine Glucose (UA) Negative mg/dL (NEGATIVE) 08/06/18 22:18 Urine Ketones Negative mg/dL (NEGATIVE) 08/06/18 22:18 Urine Blood Negative (NEGATIVE) 08/06/18 22:18 Urine Nitrate Negative (NEGATIVE) 08/06/18 22:18 Urine Bilirubin Negative (NEGATIVE) 08/06/18 22:18 Urine Urobilinogen 0.2 E.U./dL (<1 E.U./dL) 08/06/18 22:18 Ur Leukocyte Esterase Negative Shade/uL (NEGATIVE) 08/06/18 22:18 Urine RBC 0 - 2 /hpf (0-2) 08/06/18 22:18 Urine WBC 0 - 2 /hpf (0-6) 08/06/18 22:18 Ur Epithelial Cells Many /hpf (0-5) H 08/06/18 22:18 Urine Bacteria Few /hpf (NONE) 08/06/18 22:18 Influenza Typ A,B (EIA) Negative for flu a/b (NEGATIVE) 08/06/18 20:14 Grp A Beta Strep Ag Negative (NEGATIVE) 08/06/18 20:14 - Hospital Course Hospital Course: Upon Admission 63yo female PMHx Ulcerative Colitis on Humira, HTN, COPD, and hidroadenitis supporativa [place] [facility] [place]-day history of fever, cough, chills and body aches. Patient also complained of intermittent abdominal pain and diarrhea with blood. She reported her was sick at home and when she went to their PMD she was noted to have a fever with temp 103F. As patient is on Humira she was instructed to go to the ER. Hospital Course CT Abd/pelvis consistent with proctocolitis. GI and ID on board. Patient on IV Zosyn. As patient showed flu-like symptoms and has sick contact, started on Tamiflu as per ID and placed on droplet precautions. CXR unremarkable. Tylenol on board for fever. Patient's Humira on hold at this time. Maintain normotension and continue home Norvasc. Patient's lipitor also continued for HLD. Patient was CDiff negative. She was taken for flex sigmoid with GI that revealed proctocolitis, biopsy pending. Patient symptoms resolved and she was medically optimized for discharge home with close outpatient follow up. Upon Discharge Plan for outpatient follow up to re-assess symptoms, review pathology, and provide recommendation on restarting Humira outpatient after resolution of acute infectious process with Influenza and ruling out HSV/CMV on colonic biopsy. As per GI, patient will benefit from IBD tertiary care referral outpatient for medical management of simultaneous hidradenitis suppuritiva and IBD. Patient to take the following new medications as prescribed: -Tamiflu 75mg 1 tab twice daily for 3 more days [last dose Monday evening] -Flagyl 500mg every 8 hours daily for 7 days total -Vantin 200mg every 12 hours for 7 days total Follow up with GI doctor Dr. Neumann within 5-7 days Follow up with primary care doctor within 7-10 days Discharge Exam - Additional Findings Additional findings: - Constitutional Appears: Non-toxic, No Acute Distress - Head Exam Head Exam: ATRAUMATIC, NORMAL INSPECTION, NORMOCEPHALIC - Eye Exam Eye Exam: EOMI, Normal appearance, PERRL. absent: Conjunctival injection, Scleral icterus - ENT Exam ENT Exam: Mucous Membranes Moist - Neck Exam Neck exam: Positive for: Full Rom. Negative for: Lymphadenopathy - Respiratory Exam Respiratory Exam: Clear to Auscultation Bilateral, NORMAL BREATHING PATTERN. absent: Accessory Muscle Use, Rales, Rhonchi, Wheezes - Cardiovascular Exam Cardiovascular Exam: RRR, +S1, +S2 - GI/Abdominal Exam GI & Abdominal Exam: Normal Bowel Sounds, Soft, Tenderness (minimal- lower abdomen to palpation). absent: Distended, Firm, Guarding - Extremities Exam Extremities exam: Positive for: normal inspection, pedal pulses present. Negative for: pedal edema - Back Exam Back exam: NORMAL INSPECTION. absent: tenderness - Neurological Exam Neurological exam: Alert, CN II-XII Intact, Normal Gait, Oriented x3 - Psychiatric Exam Psychiatric exam: Normal Affect, Normal Mood - Skin Skin Exam: Dry, Intact, Normal Color, Warm Discharge Plan - Discharge Medications Prescriptions: metroNIDAZOLE [Flagyl] 500 mg PO Q8H 7 Days #21 tab RX: Oseltamivir Cap [Tamiflu Cap] 75 mg PO BID #5 capsule Cefpodoxime [Vantin] 200 mg PO BID 7 Days #13 tab - Follow Up Plan Condition: FAIR Disposition: HOME/ ROUTINE Instructions: High Blood Pressure in Adults, Dangers of Secondhand Smoke, Exacerbation of COPD (DC), Fever, Adult (DC), Influenza Virus Vaccine (Inactivated), Colitis (DC) Additional Instructions: You are being discharged from [facility] Please resume all home medications as prescribed by your PMD Please take the following new medications as prescribed: -Tamiflu 75mg 1 tab twice daily for 3 more days [last dose Monday evening] -Flagyl 500mg every 8 hours daily for 7 days total -Vantin 200mg every 12 hours for 7 days total Please follow up with your GI doctor Dr. Neumann within 5-7 days Please also follow up with your primary care doctor within 7-10 days If symptoms return please visit your nearest Emergency Room. <Vipul Vallejo - Last Filed: 08/10/18 16:21> Provider - Provider Date of Admission: 08/06/18 23:45 Attending physician: Vipul Vallejo MD Consults: 08/07/18 06:40 Infectious Disease Consult Routine Comment: Consulting Provider: Severiano Emmanuel Consulting Physician: Severiano Emmanuel Reason for Consult: proctocolitis; req IV abx 08/07/18 08:55 Consult [Physician Consult] Routine Comment: Consulting Provider: Wseley Neumann V Consulting Physician: Wesley Neumann V Reason for Consult: colitis hx of UC Hospital Course - Lab Results Lab Results: Micro Results 08/06/18 23:40 Blood Blood Culture - Preliminary NO GROWTH AFTER 3 DAYS 08/06/18 23:25 Blood Blood Culture - Preliminary NO GROWTH AFTER 3 DAYS 08/09/18 09:25 Stool C. difficile Antigen & Toxins A,B - Final 08/06/18 20:14 Throat Group A Strep Throat Culture - Final NO BETA STREP GROUP A ISOLATED. Most Recent Lab Values WBC 5.4 10^3/uL (4.5-11.0) 08/10/18 07:25 RBC 4.14 10^6/uL (3.5-6.1) 08/10/18 07:25 Hgb 11.9 g/dL (12.0-16.0) L 08/10/18 07:25 Hct 38.1 % (36.0-48.0) 08/10/18 07:25 MCV 92.0 fl (80.0-105.0) 08/10/18 07:25 MCH 28.7 pg (25.0-35.0) 08/10/18 07:25 MCHC 31.2 g/dl (31.0-37.0) 08/10/18 07:25 RDW 14.1 % (11.5-14.5) 08/10/18 07:25 Plt Count 230 10^3/uL (120.0-450.0) 08/10/18 07:25 MPV 9.9 fl (7.0-11.0) 08/10/18 07:25 Neut % (Auto) 62.1 % (50.0-68.0) 08/10/18 07:25 Lymph % (Auto) 23.5 % (22.0-35.0) 08/10/18 07:25 [place] % (Auto) 9.2 % (1.0-6.0) H 08/10/18 07:25 Eos % (Auto) 4.8 % (1.5-5.0) 08/10/18 07:25 Baso % (Auto) 0.4 % (0.0-3.0) 08/10/18 07:25 Lymph # (Auto) 1.3 (1.2-3.4) 08/10/18 07:25 [place] # (Auto) 0.5 (0.1-0.6) 08/10/18 07:25 Eos # (Auto) 0.3 (0.0-0.7) 08/10/18 07:25 Baso # (Auto) 0.02 K/mm3 (0.0-2.0) 08/10/18 07:25 Absolute Neuts (auto) 3.38 (1.4-6.5) 08/10/18 07:25 PT 13.3 SECONDS (9.4-12.5) H 08/09/18 08:15 INR 1.18 08/09/18 08:15 Sodium 142 mmol/L (132-148) 08/10/18 07:25 Potassium 4.1 mmol/L (3.6-5.0) 08/10/18 07:25 Chloride 105 mmol/L (98-107) 08/10/18 07:25 Carbon Dioxide 30 mmol/L (21-33) 08/10/18 07:25 Anion Gap 12 (10-20) 08/10/18 07:25 BUN 8 mg/dL (7-21) 08/10/18 07:25 Creatinine 0.7 mg/dl (0.7-1.2) 08/10/18 07:25 Est GFR ( Amer) > 60 08/10/18 07:25 Est GFR (Non-Af Amer) > 60 08/10/18 07:25 Random Glucose 133 mg/dL (70-110) H 08/10/18 07:25 Calcium 8.8 mg/dL (8.4-10.5) 08/10/18 07:25 Phosphorus 3.8 mg/dL (2.5-4.5) 08/07/18 08:25 Magnesium 2.0 mg/dL (1.7-2.2) 08/07/18 08:25 Total Bilirubin 0.7 mg/dL (0.2-1.3) 08/10/18 07:25 AST 28 U/L (14-36) 08/10/18 07:25 ALT 22 U/L (7-56) 08/10/18 07:25 Alkaline Phosphatase 86 U/L (38-126) 08/10/18 07:25 Total Protein 6.9 g/dL (5.8-8.3) 08/10/18 07:25 Albumin 3.8 g/dL (3.0-4.8) 08/10/18 07:25 Globulin 3.1 gm/dL 08/10/18 07:25 Albumin/Globulin Ratio 1.2 (1.1-1.8) 08/10/18 07:25 Urine Color Yellow (YELLOW) 08/06/18 22:18 Urine Appearance Clear (CLEAR) 08/06/18 22:18 Urine pH 6.0 (4.7-8.0) 08/06/18 22:18 Ur Specific Lejunior >= 1.030 (1.005-1.035) 08/06/18 22:18 Urine Protein 30 mg/dL (<30 mg/dL) H 08/06/18 22:18 Urine Glucose (UA) Negative mg/dL (NEGATIVE) 08/06/18 22:18 Urine Ketones Negative mg/dL (NEGATIVE) 08/06/18 22:18 Urine Blood Negative (NEGATIVE) 08/06/18 22:18 Urine Nitrate Negative (NEGATIVE) 08/06/18 22:18 Urine Bilirubin Negative (NEGATIVE) 08/06/18 22:18 Urine Urobilinogen 0.2 E.U./dL (<1 E.U./dL) 08/06/18 22:18 Ur Leukocyte Esterase Negative Shade/uL (NEGATIVE) 08/06/18 22:18 Urine RBC 0 - 2 /hpf (0-2) 08/06/18 22:18 Urine WBC 0 - 2 /hpf (0-6) 08/06/18 22:18 Ur Epithelial Cells Many /hpf (0-5) H 08/06/18 22:18 Urine Bacteria Few /hpf (NONE) 08/06/18 22:18 Influenza Typ A,B (EIA) Negative for flu a/b (NEGATIVE) 08/06/18 20:14 Grp A Beta Strep Ag Negative (NEGATIVE) 08/06/18 20:14 - Hospital Course Hospital Course: Pt seen and examined by me. I have reviewed the note of the medical office professional instructor and I agree with it. I have discussed the assessment and plan with the resident. I have reviewed the medications and the last labs. Pt will be placed on PO Flagyl and Vantin. She is feeling well and weighing. She will be also placed on Tamiflu. She will be followed up by GI. Spoke to GI - Dr Neumann yesterday.
[2018-08-16 02:44] LABS: STOOL SODIUM 28.7 mEq/L
== END 2018-08-10 15:30 | disposition home or self-care (01) | DRG 387 ==
LOC: ED 16:47 → ERH 23:45 → 5RNO 08-07 03:35 → 5RSO 08-07 22:03
PROVIDERS: ADMIT Internal Medicine Nephrology; ATTEND Internal Medicine Nephrology
PROC: 0DBP8ZX Excision of Rectum, Via Natural or Artificial Opening Endoscopic, Diagnostic (ICD-10-PCS; 2018-08-09)
PROC: 0DBM8ZX Excision of Descending Colon, Via Natural or Artificial Opening Endoscopic, Diagnostic (ICD-10-PCS; principal; 2018-08-09 08:00)
PROC: 0DBN8ZX Excision of Sigmoid Colon, Via Natural or Artificial Opening Endoscopic, Diagnostic (ICD-10-PCS; 2018-08-09 08:00)
DX: K51.50 Left sided colitis without complications (principal); J44.9 Chronic obstructive pulmonary disease, unspecified; I10 Essential (primary) hypertension; L73.2 Hidradenitis suppurativa; K57.30 Diverticulosis of large intestine without perforation or abscess without bleeding; K80.20 Calculus of gallbladder without cholecystitis without obstruction; R59.0 Localized enlarged lymph nodes; E78.00 Pure hypercholesterolemia, unspecified; K76.0 Fatty (change of) liver, not elsewhere classified; Z87.891 Personal history of nicotine dependence